=== PATIENT | female | born 1940 | race Caucasian/White ===

== ENCOUNTER 2017-09-04 11:13 | Inpatient (IN) ==
--- NOTE | 2017-09-04 11:52 | Emergency Department Note ---
Disposition Clinical Impression: Palpitations Disposition: Admitted As Inpatient Condition: Good Time of Disposition: 13:53 Arrhythmia/Palpitations HPI - General Chief Complaint: ED Arrhythmia/Palpitations Stated Complaint: High Heart Rate Time Seen by Provider: 09/04/17 11:27 Source: patient, family Limitations: no limitations - History of Present Illness HPI Narrative: 76-year-old female presents emergency Department with concerns of increased weakness, lightheadedness and a feeling of palpitation at home. Patient has a history of paroxysmal atrial fibrillation. She takes sotalol which was recently increased within the past 2 weeks. Patient states she feels lightheaded and near syncopal with exertion. She also become short of breath with exertion. Patient denies history of GA in the past. Patient has had a persistent cough which is nonproductive. Patient denies diarrhea, abdominal pain, rash. No recent fevers. - Related Data Home Medications Medication Instructions Recorded Confirmed Cholecalciferol (Vitamin D3) 5,000 unit PO DAILY 08/03/15 09/04/17 [Vitamin D3] Multivitamin/Iron/Folic Acid 1 tab PO DAILY 08/03/15 09/04/17 [Centrum Complete Multivit Tab] Atorvastatin [Lipitor] 40 mg PO QPM 08/18/15 09/04/17 Warfarin [Coumadin] 5 mg PO SUMOWETHFR 10/13/15 09/04/17 Warfarin [Coumadin] 7.5 mg PO TUSA 10/13/15 09/04/17 Mirtazapine 7.5 mg PO DAILY PRN 12/19/15 09/04/17 Amlodipine Besylate 10 mg PO DAILY 09/04/17 09/04/17 DULoxetine [Cymbalta] 30 mg PO BID 09/04/17 09/04/17 Gabapentin [Neurontin] 600 mg PO TID 09/04/17 09/04/17 Sotalol HCl [Betapace] 120 mg PO BID 09/04/17 09/04/17 Previous Rx's Medication Instructions Recorded Furosemide [Lasix] 40 mg PO DAILY #30 tablet 12/22/15 Potassium Chloride [K-Tab ER] 20 meq PO DAILY #30 tablet.er 12/22/15 Allergies Allergy/AdvReac Type Severity Reaction Status Date / Time Prazosin [From Minipress] Allergy Anaphylaxis Verified 09/04/17 11:20 cephalexin [From Keflex] AdvReac Vomiting Verified 09/04/17 11:20 All systems ED: reviewed and negative except as stated. Review of Systems: As Per HPI Past Medical History - Past Medical History Attestation: Yes The following information was validated with the patient. Medical history: Reports: arthritis, atrial fibrillation, cancer, cardiomyopathy , dementia, GERD, hyperlipidemia, hypertension, osteoporosis, syncope, TIA, other Surgical history: Reports: appendectomy, cancer surgery, cataract, cholecystectomy, other Psychiatric history: Reports: anxiety, depression TRANSPORTATION DISPATCHER history: Reports: no TRANSPORTATION DISPATCHER history - Social History Smoking Status: Never smoker Smokeless Tobacco Status: No Alcohol use: Reports: none Drug use: Reports: none Physical Exam General: Alert and in no acute distress Skin: Warm, dry, intact Head: Normocephalic and atraumatic Neck: Supple, trachea midline and no tenderness Cardiovascular: RRR, no murmur, normal perfusion Respiratory: CTAB, no wheezing, cough, or respiratory distress Musculoskeletal: Normal strength, no tenderness, swelling or deformity GI: Soft, nontender, nondistended. Bowel sounds present Neuro: A&O to person, place, time and situation. No focal deficits noted on exam Psychiatric: cooperative and appropriate mood and affect. - General Limitations: no limitations General appearance: alert, in no apparent distress Course Vital Signs Temperature 98.4 F 09/04/17 11:16 Pulse Rate 81 09/04/17 11:16 Respiratory Rate 20 09/04/17 11:16 Blood Pressure 132/65 09/04/17 11:16 O2 Sat by Pulse Oximetry 96 09/04/17 11:16 Temperature 98.8 F 09/04/17 22:30 Pulse Rate 105 09/04/17 22:30 Respiratory Rate 15 09/04/17 22:30 Blood Pressure 101/70 09/04/17 22:30 O2 Sat by Pulse Oximetry 95 09/04/17 22:30 Oxygen Delivery Oxygen Delivery Nasal Cannula Arrhythmia/Palpitations - Medical Records Medical records reviewed: Yes I reviewed the patient's medical records. - Lab Data Lab results reviewed: Yes I reviewed the patient's lab results. Result diagrams: 09/04/17 11:38 09/04/17 11:38 Lab Results 09/04/17 09/04/17 09/04/17 Range/Units 11:38 11:38 11:38 WBC 10.0 (4.3-11.1) K/mcL RBC 4.62 (3.82-4.97) M/mcL Hgb 14.6 (11.5-15.4) g/dL Hct 45.0 H (35.3-44.9) % MCV 97.4 (83.0-100.0) fL MCH 31.6 (28.0-33.3) pg MCHC 32.4 (31.6-35.5) g/dL RDW 12.8 (11.5-14.5) % Plt Count 303 (140-400) K/mcL MPV 10.7 (9.4-12.4) fL Immature Gran % 0.3 (0-4) % Seg Neutrophils % 66.6 % Lymphocytes % 24.2 % Monocytes % 6.9 % Eosinophils % 1.4 % Basophils % 0.6 % Neutrophils # 6.7 (1.6-8.9) K/mcL Lymphocytes # 2.4 (0.6-4.6) K/mcL Monocytes # 0.7 (0.0-1.3) K/mcL Eosinophils # 0.1 (0.0-0.6) K/mcL Basophils # 0.1 (0.0-0.2) K/mcL PT (9.4-12.1) Seconds INR APTT (26.0-36.0) Seconds D-Dimer (0-500) ng/mLFEU Sodium 139 (136-145) mEq/L Potassium 4.3 (3.5-5.1) mEq/L Chloride 102 (98-107) mEq/L Carbon Dioxide 27 (23-29) mEq/L BUN 14 (8-23) mg/dL Creatinine 0.96 (0.60-1.20) mg/dL Est GFR ( Amer) > 60 (> 60) Est GFR (Non-Af Amer) 56 L (> 60) BUN/Creatinine Ratio 15 (6-26) Glucose 117 H (70-105) mg/dL Calculated Osmolality 290 (280-300) Calcium 9.9 (8.6-10.3) mg/dL Troponin I < 0.03 (< 0.04) ng/mL TSH 4.089 (0.340-5.600) mcIU/mL 09/04/17 Range/Units 11:38 WBC (4.3-11.1) K/mcL RBC (3.82-4.97) M/mcL Hgb (11.5-15.4) g/dL Hct (35.3-44.9) % MCV (83.0-100.0) fL MCH (28.0-33.3) pg MCHC (31.6-35.5) g/dL RDW (11.5-14.5) % Plt Count (140-400) K/mcL MPV (9.4-12.4) fL Immature Gran % (0-4) % Seg Neutrophils % % Lymphocytes % % Monocytes % % Eosinophils % % Basophils % % Neutrophils # (1.6-8.9) K/mcL Lymphocytes # (0.6-4.6) K/mcL Monocytes # (0.0-1.3) K/mcL Eosinophils # (0.0-0.6) K/mcL Basophils # (0.0-0.2) K/mcL PT 23.8 H (9.4-12.1) Seconds INR 2.2 APTT 35.3 (26.0-36.0) Seconds D-Dimer 269 (0-500) ng/mLFEU Sodium (136-145) mEq/L Potassium (3.5-5.1) mEq/L Chloride (98-107) mEq/L Carbon Dioxide (23-29) mEq/L BUN (8-23) mg/dL Creatinine (0.60-1.20) mg/dL Est GFR ( Amer) (> 60) Est GFR (Non-Af Amer) (> 60) BUN/Creatinine Ratio (6-26) Glucose (70-105) mg/dL Calculated Osmolality (280-300) Calcium (8.6-10.3) mg/dL Troponin I (< 0.04) ng/mL TSH (0.340-5.600) mcIU/mL - Radiology Data Radiology results reviewed: Yes I reviewed the patient's radiology results. - EKG Data EKG attestation: Yes I reviewed and interpreted this EKG.
[2017-09-04 12:17] LABS: Basophils # 0.1 K/mcL (0.0-0.2); Basophils % 0.6 %; Eosinophils # 0.1 K/mcL (0.0-0.6); Eosinophils % 1.4 %; Hemoglobin 14.6 g/dL (11.5-15.4); Immature Granulocytes % 0.3 % (0-4); Lymphocytes # 2.4 K/mcL (0.6-4.6); Lymphocytes % 24.2 %; Mean Corpuscular HGB Conc 32.4 g/dL (31.6-35.5); Mean Corpuscular Hemoglobin 31.6 pg (28.0-33.3); Mean Corpuscular Volume 97.4 fL (83.0-100.0); Mean Platelet Volume 10.7 fL (9.4-12.4); Monocytes # 0.7 K/mcL (0.0-1.3); Monocytes % 6.9 %; Neutrophils # 6.7 K/mcL (1.6-8.9); Platelet Count 303 K/mcL (140-400); Red Blood Count 4.62 M/mcL (3.82-4.97); Red Cell Distribution Width 12.8 % (11.5-14.5); Segmented Neutrophils % 66.6 %
[2017-09-04 12:35] LABS: BUN/Creatinine Ratio 15 (6-26); Blood Urea Nitrogen 14 mg/dL (8-23); Calcium 9.9 mg/dL (8.6-10.3); Carbon Dioxide 27 mEq/L (23-29); Chloride 102 mEq/L (98-107); Glucose 117 mg/dL (70-105); Osmolality,Calculated 290 (280-300); Potassium 4.3 mEq/L (3.5-5.1); Sodium 139 mEq/L (136-145); eGFR For African Americans > 60 (> 60); eGFR For Non-African Americans 56 (> 60)
[2017-09-04 12:58] LABS: INR 2.2; Prothrombin Time 23.8 Seconds (9.4-12.1)
[2017-09-04 13:01] LABS: Activated Partial Thrombo Time 35.3 Seconds (26.0-36.0)
[2017-09-04] MEDS ORDERED: Naloxone 0.4 MG/ML INJ IVP PRN (15:55)
[2017-09-04] MEDS ORDERED: Mirtazapine 15 MG TABLET PO PRN (16:00)
[2017-09-04 16:13] LABS: Thyroid Stimulating Hormone 4.089 mcIU/mL (0.340-5.600)
--- NOTE | 2017-09-04 16:18 | Internal Med History&Physical ---
Date of Encounter: 09/04/17 Time of Encounter: 15:30 Assessment and Plan (1) Acute exacerbation of CHF (congestive heart failure) Current visit: Yes Status: Acute Acute exacerbation of CHF. BNP ordered stat. On exam, pt. SOB and mildly dyspneic w/bilateral pedal edema of LEs. Reports cardiology suspected CHF dx previously. States SOB worse w/exertion and reports orthopnea. Echocardiogram ordered. Hold pts. PO lasix and administer 40 mg IVP lasix BID. Monitor I&O and daily weight. 1.5L daily fluid restriction. Continuous cardiac telemetry. Continue Coumadin w/pharmacy dosing and Sotalol for chronic atrial fibrillation. Falls/safety precautions. Pt. discussed w/Dr. Fuchs who agrees w/ plan of care. Pt. is high risk for further morbidity and cardiac/respiratory distress d/t current sx, acute exacerbation of CHF, hx, and risk factors. Observation. Qualifiers: Heart failure type: diastolic Qualified Code(s): I50.33 - Acute on chronic diastolic (congestive) heart failure (2) Dizziness Current visit: Yes Status: Acute Acute dizziness d/t SOB/dyspnea. Supplemental O2/SpO2 monitoring. Falls/safety precautions, up with assist, bed rest w/bathroom privileges w/assist only. PT/ OT consults ordered to assess for ambulation strength, stability, safety. (3) SOB (shortness of breath) Current visit: Yes Status: Acute Acute on chronic SOB/dyspnea for past 2-3 days, worsening in last day. Denies home O2 use. Supplemental O2 w/titration and SpO2 monitoring. DuoNebs Q6 scheduled. IVP lasix 40 mg BID. Falls/safety precautions. SW consult to assess for home O2 needs. (4) HTN (hypertension) Current visit: Yes Status: Chronic Hx of chronic HTN. Monitor pt. and VS. Continue pts. Amlodipine. Qualifiers: Hypertension type: essential hypertension Qualified Code(s): I10 - Essential (primary) hypertension (5) HLD (hyperlipidemia) Current visit: Yes Status: Chronic Hx of chronic HLD. Lipid panel in a.m. labs. Continue pts. Lipitor. Qualifiers: Hyperlipidemia type: pure hypercholesterolemia Qualified Code(s): E78.00 - Pure hypercholesterolemia, unspecified; E78.0 - Pure hypercholesterolemia (6) GERD (gastroesophageal reflux disease) Current visit: Yes Status: Chronic Hx of chronic GERD. 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 Mucinex for cough. IVP Protonix 40 mg daily. Qualifiers: Esophagitis presence: esophagitis presence not specified Qualified Code(s) : K21.9 - Gastro-esophageal reflux disease without esophagitis (7) Atrial fibrillation Current visit: Yes Status: Chronic Hx of chronic atrial fibrillation. Pacemaker in place. Continuous cardiac telemetry. Continue patient's Coumadin with pharmacy dosing and sotalol. Qualifiers: Atrial fibrillation type: chronic Qualified Code(s): I48.2 - Chronic atrial fibrillation (8) Anxiety associated with depression Current visit: Yes Status: Chronic Hx of chronic anxiety and depression. Continue pts. Cymbalta and mirtazapine. (9) DVT prophylaxis Current visit: Yes Status: Acute Continue pts. Coumadin w/pharmacy dosing for DVT prophylaxis. Monitor pt. for signs of bleeding. Internal Medicine - H&P: HPI Chief complaint: SOB/Dyspnea Admitted From: Emergency Dept Plans for Post Hospital Care: Home History of present illness: Ms. Tavares is a 76 year old female w/PMH of arthritis, atrial fibrillation, basal cell skin carcinoma, cardiomyopathy, dementia, GERD, atrial decal HTN, osteoporosis, and TIAs presents from the ED with chief complaint of shortness of breath and dyspnea past 2-3 days which worsened over the past 24 hours. Patient states SOB increases with exertion. Patient also reports palpitations and has history of atrial fibrillation. Denies history of tobacco use. Patient reports SOB, dyspnea, cough, and dizziness but denies recent illness, fever, chills, nausea, vomiting, headache, changes in vision, abdominal pain, diarrhea, constipation, chest pain, unusual bleeding, pre-syncope, or syncope. Past Med Surg Social Fam HX - Past Medical History Source: patient, old records reviewed, obtained from family Medical history: arthritis, atrial fibrillation, cancer (Basal cell carcinoma of the skin), cardiomyopathy, dementia, GERD, hyperlipidemia, hypertension, osteoporosis, syncope, TIA, other Psychiatric history: anxiety, depression - Past Surgical History Surgical History: appendectomy, cancer surgery (Skin), cataract (Right), cholecystectomy, orthopedic, other (Right wrist), other - Social History Smoking Status: Never smoker Smokeless Tobacco Status: No Alcohol use: none Drug use: none Current living situation: Home, With Family Activity Level: Independent ambulation Recent Out of Country Travel Within the Last 8 Weeks: No Exposure or Possible Exposure to Illness During Travel: No - Family History Mother Race: Family Member Ethnicity: Non- Living Status: Age at : 68 Cause of : [place] Hx Family Cardiac Disorders: Yes (Heart Disease) Father Race: Family Member Ethnicity: Non- Living Status: Age at : 79 Cause of : Cancer Hx Family Cancer: Yes Brother Race: Family Member Ethnicity: Non- Living Status: Still Living Hx Family Neuromuscular Disorders: Yes (Parkinson's Disease) Sister Race: Family Member Ethnicity: Non- Living Status: Age at : 65 Cause of : Breast cancer Hx Family Cancer: Yes (Breast) Internal Medicine - H&P: Meds Cholecalciferol (Vitamin D3) [Vitamin D3] 5,000 unit PO DAILY 08/03/15 [History] Multivitamin/Iron/Folic Acid [Centrum Complete Multivit Tab] 1 tab PO DAILY [History] Atorvastatin [Lipitor] 40 mg PO QPM 08/18/15 [History] Warfarin [Coumadin] 5 mg PO SUMOWETHFR 10/13/15 [History] Warfarin [Coumadin] 7.5 mg PO TUSA 10/13/15 [History] Mirtazapine 7.5 mg PO DAILY PRN 12/19/15 [History] Furosemide [Lasix] 40 mg PO DAILY #30 tablet 12/22/15 [Rx] Potassium Chloride [K-Tab ER] 20 meq PO DAILY #30 tablet.er 12/22/15 [Rx] Amlodipine Besylate 10 mg PO DAILY 09/04/17 [History] DULoxetine [Cymbalta] 30 mg PO BID 09/04/17 [History] Gabapentin [Neurontin] 600 mg PO TID 09/04/17 [History] Sotalol HCl [Betapace] 120 mg PO BID 09/04/17 [History] 3 Allergy/AdvReac Type Severity Reaction Status Date / Time Prazosin [From Minipress] Allergy Anaphylaxis Verified 09/04/17 11:20 cephalexin [From Keflex] AdvReac Vomiting Verified 09/04/17 11:20 All Systems PM: A 10-system review of systems was performed and is negative for pertinent findings except as documented above in the HPI. - Constitutional Constitutional: as per HPI, no chills, no fever(s), no night sweats - EENT Eyes: no change in vision, no discharge, no pain, no photophobia Ears: no ear discharge, no ear pain, no tinnitus Nose, mouth and throat: no dysphagia, no nasal discharge, no neck pain, no sore throat - Breasts Breasts: as per HPI - Cardiovascular Cardiovascular ROS IM: as per HPI, dyspnea, dyspnea on exertion, edema ( Bilateral pedal edema in LEs), irregular heart rhythm (Atrial fibrillation), orthopnea, no chest pain, no diaphoresis, no lightheadedness, no palpitations, no syncope - Respiratory Respiratory: as per HPI, cough, dyspnea, dyspnea on exertion, no wheezing, no excessive phlegm production - Gastrointestinal Gastrointestinal: no abdominal pain, no diarrhea, no hematemesis, no hematochezia, no melena, no nausea, no vomiting - Genitourinary Genitourinary: no change in urinary stream, no dysuria, no flank pain, no hematuria Menstruation: as per HPI - Musculoskeletal Musculoskeletal ROS IM: no numbness, no tingling - Integumentary Integumentary IM: no rash, no unusual bruising - Neurological Neurological ROS: as per HPI, dizziness, no confusion, no convulsions, no focal weakness, no numbness, no tingling, no tremor(s) - Psychiatric Psychiatric: as per HPI, anxiety, depression - Endocrine Endocrine IM: as per HPI - Hematologic/Lymphatic Hematologic/Lymphatic: no easy bruising - Allergic/Immunologic Allergic/Immunologic: as per HPI - Constitutional Vitals: Temp Pulse Resp BP Pulse Ox 98.4 F 75 16 116/64 99 09/04/17 11:16 09/04/17 15:02 09/04/17 15:02 09/04/17 15:02 09/04/17 15:02 General appearance: Present: cooperative, mild distress (SOB), A&O X 3, pleasant , answers questions appropriately - Head Head exam: Present: atraumatic, normal inspection, normocephalic - Eye Eye exam: Present: PERRL, conjuntiva pink, sclera anicteric Pupils: Present: PERRL - ENT ENT exam: Present: normal exam - Neck Neck exam general surgery: Present: normal inspection, supple, trachea midline. Absent: lymphadenopathy - Respiratory Respiratory exam: Present: CTAB. Absent: accessory muscle use, rales, rhonchi, wheezes - Cardiovascular Cardiovascular exam: Present: RRR, +S1, +S2. Absent: diastolic murmur, gallop, rubs, systolic murmur - GI/Abdominal GI/Abdominal exam: Present: normal bowel sounds, soft, no peritoneal signs. Absent: distended, tenderness - Rectal Rectal exam: Present: deferred - Additional comments: exam deferred. - Extremities Exam Extremities exam: Present: pedal edema (Bilaterally), warm, radial pulses palpable and symmetrical. Absent: calf tenderness, cyanotic - Back Exam Back exam: Present: normal inspection - Neurological Exam Neurological exam: Present: CN II-XII intact, oriented X3, no focal deficits. Absent: pronater drift, facial droop, speech deficit - Psychiatric Psychiatric exam: Present: normal affect, normal mood - Skin Skin exam: Present: dry, intact Internal Med - H&P Results - Labs CBC & Chem 7: 09/04/17 11:38 09/04/17 11:38 - EKG Data Prior EKG available for review: yes When compared to previous EKG: there is no significant change EKG comments: 09/04/17 16:25 EKG dated 11/15/16 shows electronic atrial pacemaker with nonspecific T-wave abnormality. EKG dated 09/04/17 shows electronic atrial pacemaker and abnormal rhythm ECG. - Diagnostic Studies Chest x-ray Additional comments: Impressions Chest X-Ray 09/04/17 11:54 IMPRESSION: No acute abnormality. D/ / Hilario Mcqueen MD / Hilario Mcqueen MD Interpreting Provider: Hilario Mcqueen MD
[2017-09-04 17:16] LABS: ABG Base Excess 5 mEq/L (-2 to 3); ABG HCO3 30 mEq/L (21-27); ABG Oxygen Saturation 98 % (95-98); ABG PCO2 43 mmHg (35-45); ABG PH 7.45 pH Units (7.32-7.45); ABG PO2 97 mmHg (85-104); ABG TCO2 31 mEq/L (20-26)
--- NOTE | 2017-09-04 17:17 | Event Note ---
Date of Encounter: 09/04/17 Time of Encounter: 16:57 Pt. admitted for CHF exacerbation w/SOB and dyspnea today. Went to see patient in room to verify code status and discuss family hx. Pt. was eating during questioning and at rest. When finished, I left pt. and . Rapid response called several minutes later. Returned to pts. room and pt. was laying in bed. According to her nurse, pt. slumped over while she was doing her assessment and could not speak. Pt. reported to me during my examination that she was dx with a twisted esophagus several years ago and she experiences coughing spells where it is difficult for her to breath. Nurse reports pt. did not experience coughing spell during incident. EKG done which shows sinus rhythm with a nonspecific T-wave abnormality. Pt. has hx of atrial fibrillation. Pt. was able to speak during RR and neuro checks unremarkable w/equal strengths bilaterally. ABG and CT of the head ordered STAT. Pt. alert, oriented x3, and back to her baseline by 17:05. Pt. to be placed on O2 via mask instead of current cannula. Pt. is falls/safety precautions and will continue to be monitored closely.
[2017-09-04] MEDS ORDERED: *HR* LORazepam 2 MG/ML VIAL IVP ONE (17:22)
[2017-09-04] MEDS: Furosemide 40 MG/4 ML VIAL IVP SCH (17:39)
[2017-09-04] MEDS: Pantoprazole 40 MG VIAL IVP SCH (17:39)
[2017-09-04] MEDS ORDERED: *HR* Warfarin 5 MG TABLET PO ONE (18:00)
[2017-09-04] MEDS ORDERED: Warfarin perPT PO PRN (18:00)
--- NOTE | 2017-09-04 18:45 | Electrocardiograph Report ---
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
--- NOTE | 2017-09-04 18:47 | Electrocardiograph Report ---
[place] 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
[2017-09-04] MEDS: Gabapentin 300 MG CAPSULE PO SCH (21:04)
[2017-09-04] MEDS: Ipratropium/Albuterol Neb 3 ML IH SCH (22:30)
[2017-09-05] MEDS: Ipratropium/Albuterol Neb 3 ML IH SCH ×4 (04:50→21:16)
[2017-09-05 06:20] LABS: Basophils # 0.1 K/mcL (0.0-0.2); Basophils % 0.6 %; Eosinophils # 0.1 K/mcL (0.0-0.6); Eosinophils % 1.3 %; Hematocrit 43.5 % (35.3-44.9); Hemoglobin 14.1 g/dL (11.5-15.4); Immature Granulocytes % 0.4 % (0-4); Lymphocytes # 2.2 K/mcL (0.6-4.6); Mean Corpuscular HGB Conc 32.4 g/dL (31.6-35.5); Mean Corpuscular Hemoglobin 31.9 pg (28.0-33.3); Mean Corpuscular Volume 98.4 fL (83.0-100.0); Mean Platelet Volume 10.8 fL (9.4-12.4); Monocytes # 0.7 K/mcL (0.0-1.3); Monocytes % 8.2 %; Neutrophils # 5.3 K/mcL (1.6-8.9); Platelet Count 237 K/mcL (140-400); Red Blood Count 4.42 M/mcL (3.82-4.97); Red Cell Distribution Width 12.9 % (11.5-14.5); Segmented Neutrophils % 63.5 %
[2017-09-05 06:39] LABS: Alanine Aminotransferase 9 Units/L (7-52); Albumin 3.8 g/dL (3.5-5.7); Albumin/Globulin Ratio 1.5 (1.1-2.2); Alkaline Phosphatase 74 Units/L (34-104); Aspartate Amino Transferase 22 Units/L (13-39); BUN/Creatinine Ratio 16 (6-26); Bilirubin,Total 0.7 mg/dL (0.3-1.0); Blood Urea Nitrogen 14 mg/dL (8-23); Calcium 9.5 mg/dL (8.6-10.3); Carbon Dioxide 26 mEq/L (23-29); Chloride 104 mEq/L (98-107); Chol/HDL Ratio 3.4 (0-4.9); Cholesterol 155 mg/dL (< 200); Globulin 2.5 g/dL (2.4-3.5); Glucose 103 mg/dL (70-105); HDL Cholesterol 46 mg/dL (40-59); LDL Cholesterol,Calculated 78 mg/dL (0-99); Osmolality,Calculated 291 (280-300); Potassium 3.8 mEq/L (3.5-5.1); Sodium 140 mEq/L (136-145); Total Protein 6.3 g/dL (6.4-8.9); Triglycerides 155 mg/dL (< 150); eGFR For African Americans > 60 (> 60); eGFR For Non-African Americans > 60 (> 60)
[2017-09-05] MEDS: Cholecalciferol (D-3) 1,000 UNIT TABLET PO SCH (08:35)
[2017-09-05] MEDS: Pantoprazole 40 MG VIAL IVP SCH (08:35)
[2017-09-05] MEDS: Gabapentin 300 MG CAPSULE PO SCH ×3 (08:35→20:58)
[2017-09-05] MEDS: Furosemide 40 MG/4 ML VIAL IVP SCH (08:35)
[2017-09-05] MEDS: Multivit/Ca/Min/Fe/FA 1 TAB TABLET PO SCH (08:35)
[2017-09-05 08:45] LABS: INR 2.1; Prothrombin Time 22.6 Seconds (9.4-12.1)
[2017-09-05] MEDS ORDERED: amLODIPine 5 MG TABLET PO SCH (09:00)
[2017-09-05] MEDS ORDERED: Ondansetron 4 MG/2 ML VIAL ONE (10:23)
--- NOTE | 2017-09-05 11:16 | Cardiology Consult Note ---
Date of Encounter: 09/05/17 Time of Encounter: 11:14 Assessment and Plan (1) Paroxysmal atrial fibrillation Current Visit: No Status: Chronic H/o afib/aflutter. Sotalol increased one month ago due to increasing palpitations. Preciously decreased due to concern that sotalol was causing weakness and fatigue. After decreasing symptoms worsened. DId not appear symptoms were caused by sotalol. Patient still have palpitations at times. Noted to be tachycardiac HR 110's during episodes of presyncope. Will do a device check to assess afib burden. Discussed with Dr. Corral, sotalol does not appear to be controlling afib and family has concern that sotalol is still causing symptoms. We will wean off sotalol and rate control with metoprolol. Consider amiodarone if b/p does not allow beta-odell. On coumadin for AC. INR 2.1. Recommend pharmacy to dose. EKG today showed NSR. QT/QTc 367/408. (2) Pre-syncope Current Visit: No Status: Acute Presyncopal event x2 during hospital stay. Both times noted to have tachycardia. Also noted to be hypotensive. Last TTE 10/2016-LVEF 60%. Normal LV chamber size, wall thickness and function. Indeterminate diastolic function. Normal right ventricular structure and function. Moderate to severely dilated left atrium. Moderate mitral regurgitation. Moderate pulmonary hypertension. Estimated RVSP is 47 mmHg. A device lead was visualized in the right atrium and right ventricle. CT head shows no acute finding. Meningioma is unchanged from previous- family asking if this could cause symptoms. Will defer to primary team. WIll order device check. Discussion w patient/family: The assessment and plan as outlined above was discussed with the patient and/or family members who expressed understanding and agreement. All questions were answered. Thank you for involving us in the care of your patient. Please call with any questions. History of Present Illness Consult date: 09/05/17 Requesting physician: Estrella Corona Consult reason: syncope, tachycardia Chief complaint: decreased LOC History of present illness: Ms. Tavares is a 76 year old female with past medical history that includes HLD, atrial fibrillation/flutter on coumadin and pacemaker implanted who presented with increasing weakness. Cardiology consulted for tachycardia. During hospital stay patient slumped over in her chair briefly. The nurse said she was able to spit her food out so she wasn't totally out. She also slumped over today and became diaphoretic after going to the bathroom today. She denies chest pain or SOB. She follows with [facility]. Last seen 08/15/17. At that time sotalol was increased for palpitations. Sotalol was decreased initially due to c/o fatigue and weakness. Weakness and fatigue increased despite decreasing sotalol. Daughter notes patient was diagnosed with brain mass two years ago and was inquiring if symptoms were caused by this. CT head completed this admission shows no change in menigioma. Past Med Surg Social Fam HX - Past Medical History Medical history: arthritis, atrial fibrillation, cancer, cardiomyopathy, dementia, GERD, hyperlipidemia, hypertension, osteoporosis, syncope, TIA, other Psychiatric history: anxiety, depression - Past Surgical History Surgical History: appendectomy, cancer surgery, cataract, cholecystectomy, other - Social History Smoking Status: Never smoker Smokeless Tobacco Status: No Alcohol use: none Drug use: none - Family History Father Race: Family Member Ethnicity: Non- Living Status: Age at : 79 Cause of : Cancer Hx Family Cancer: Yes Brother Race: Family Member Ethnicity: Non- Living Status: Still Living Hx Family Neuromuscular Disorders: Yes (Parkinson's Disease) Sister Race: Family Member Ethnicity: Non- Living Status: Age at : 65 Cause of : Breast cancer Hx Family Cancer: Yes (Breast) Mother Race: Family Member Ethnicity: Non- Living Status: Age at : 68 Cause of : CO Hx Family Cardiac Disorders: Yes (Heart Disease) Hx Family Respiratory Disorders: No Hx Family Cancer: No Hx Family GI Disorders: No Hx Family Endocrine Disorder: No Hx Family Neuromuscular Disorders: No Hx Family Neurologic Disorders: No Hx Family HEENT Disorders: No Hx Family Autoimmune Disorders: No Medications and Allergies Cholecalciferol (Vitamin D3) [Vitamin D3] 5,000 unit PO DAILY 08/03/15 [History] Multivitamin/Iron/Folic Acid [Centrum Complete Multivit Tab] 1 tab PO DAILY [History] Atorvastatin [Lipitor] 40 mg PO QPM 08/18/15 [History] Warfarin [Coumadin] 5 mg PO SUMOWETHFR 10/13/15 [History] Warfarin [Coumadin] 7.5 mg PO TUSA 10/13/15 [History] Mirtazapine 7.5 mg PO DAILY PRN 12/19/15 [History] Furosemide [Lasix] 40 mg PO DAILY #30 tablet 12/22/15 [Rx] Potassium Chloride [K-Tab ER] 20 meq PO DAILY #30 tablet.er 12/22/15 [Rx] Amlodipine Besylate 10 mg PO DAILY 09/04/17 [History] DULoxetine [Cymbalta] 30 mg PO BID 09/04/17 [History] Gabapentin [Neurontin] 600 mg PO TID 09/04/17 [History] Sotalol HCl [Betapace] 120 mg PO BID 09/04/17 [History] 3 Allergy/AdvReac Type Severity Reaction Status Date / Time Prazosin [From Minipress] Allergy Anaphylaxis Verified 09/04/17 11:20 cephalexin [From Keflex] AdvReac Vomiting Verified 09/04/17 11:20 All Systems Review: The remainder of the systems were reviewed and are negative Physical Examination Vital Signs, Last 4 Hours Pulse Resp BP Pulse Ox 09/05/17 10:20 118 14 94/67 92 Vital Signs Temp Pulse Resp BP Pulse Ox 09/05/17 10:20 118 14 94/67 92 09/05/17 06:33 98.0 F 106 16 126/76 93 09/05/17 04:50 16 97 09/05/17 04:04 98.3 F 104 16 104/68 94 09/04/17 22:30 98.8 F 105 16 101/70 94 09/04/17 21:09 96 09/04/17 19:03 97.7 F 72 15 118/77 96 09/04/17 16:55 79 14 165/87 98 09/04/17 16:45 98.2 F 77 16 137/89 95 09/04/17 15:02 75 16 116/64 99 09/04/17 13:00 68 18 120/79 95 09/04/17 12:55 91 09/04/17 12:45 102 16 117/82 96 09/04/17 12:30 80 16 102/67 96 Intake and Output 09/04/17 09/05/17 09/05/17 23:59 07:59 15:59 Intake Total 300 / 300 120 / 120 Output Total 0 / 0 Balance 300 / 300 120 / 120 Intake: Oral 300 / 300 120 / 120 Output: Urine 0 / 0 Other: Meal Breakfast Percent of Meal Consumed 100% Weight 78.789 kg Blood Glucose* 115 139 Patient Weight 09/05/17 23:59 Weight 78.789 kg General: Conversant, Other (ill appearing. Pale. Drowsy. ) HEENT: Atraumatic, Normocephaly, Mucus Membranes Moist Neck: No JVD, Normal carotid pulses Cardiac: Reg Rate and Rhythm, Normal S1 and S2, No Murmur, Other (v-paced on monitor) Lungs: Normal Breath Sounds, No Wheeze, Rales, Rhonchi Neuro: Alert and responsive, No focal deficits noted Abdomen: Soft, Non-Tender Skin: No rashes noted on visualized skin Musculoskeletal: No Chest Wall Tenderness Extremities: No Clubbing, No Cyanosis, No Edema, Normal Pulses Results 09/05/17 05:22 09/05/17 05:22 Lab Results 09/04/17 09/05/17 09/05/17 17:13 05:22 05:22 WBC 8.3 Hgb 14.1 Hct 43.5 Plt Count 237 INR Sodium 140 Potassium 3.8 Chloride 104 Carbon Dioxide 26 BUN 14 Creatinine 0.88 Glucose 103 Calcium 9.5 Magnesium 2.0 Total Bilirubin 0.7 AST 22 ALT 9 Alkaline Phosphatase 74 B-Natriuretic Peptide 97 09/05/17 08:10 WBC Hgb Hct Plt Count INR 2.1 Sodium Potassium Chloride Carbon Dioxide BUN Creatinine Glucose Calcium Magnesium Total Bilirubin AST ALT Alkaline Phosphatase B-Natriuretic Peptide Chest X-Ray 09/04/17 11:54 IMPRESSION: No acute abnormality. D/ / Hilario Mcqueen MD / Hilario Mcqueen MD Interpreting Provider: Hilario Mcqueen MD Head CT 09/04/17 17:01 IMPRESSION: No acute intracranial abnormality. Unchanged right parafalcine meningioma. D/ / Broderick Morocho / Broderick Morocho Interpreting Provider: Broderick Morocho - Imaging and Cardiology Echo: report reviewed - EKG Interpretation EKG results cardiology: personally reviewed ([facility]Hows NSR.) Consult Discharge Plan - Plan Referrals: Jonathan Osman MD [Primary Care Provider] -
[2017-09-05 12:10] LABS: Hemoglobin A1C 6.1 %
--- NOTE | 2017-09-05 15:21 | Internal Med Progress Note ---
Date of Encounter: 09/05/17 Time of Encounter: 09:10 - Assessment and plan (1) Tachycardia Current Visit: Yes Status: Acute Assessment and plan: Patient with recent history of tachycardia, remote history of A. fib/A flutter.. She is placed on sotalol 80 mg twice daily. Was increased to 120 mg twice daily approximately 2 weeks ago. Daughter states the patient has actually become worse since the increase. Patient's pulse has been 110-120 since arrival. After patient's second rapid response since admission, cardiology was consulted for evaluation. Device check reveals no events in the last week. Device is working appropriately. Cardiology is going to wean patient from sotalol and rate control with metoprolol. If the blood pressure does not tolerate a beta odell, they will consider amiodarone. Continue telemetry Sotalol has been stopped, metoprolol 25 mg by mouth twice a day has been started. (2) Dizziness Current Visit: Yes Status: Acute Assessment and plan: Most likely presyncope due to tachycardia, hypotension. Cardiology is following. I appreciate their recommendation the consultation. Sotalol has been stopped, metoprolol has been started. Continue district manager major accounts sales for safety, fall precautions. Zofran for nausea. (3) Anxiety associated with depression Current Visit: Yes Status: Chronic Assessment and plan: Continue home medications. (4) Atrial fibrillation Current Visit: Yes Status: Chronic Assessment and plan: Prior history. Patient currently has pacemaker. The patient has been switched from sotalol to metoprolol. Patient is anticoagulated on Coumadin. Pharmacy to dose Qualifiers: Atrial fibrillation type: chronic Qualified Code(s): I48.2 - Chronic atrial fibrillation (5) GERD (gastroesophageal reflux disease) Current Visit: Yes Status: Chronic Assessment and plan: Chronic. Continue medications. Qualifiers: Esophagitis presence: esophagitis presence not specified Qualified Code(s) : K21.9 - Gastro-esophageal reflux disease without esophagitis (6) HLD (hyperlipidemia) Current Visit: Yes Status: Chronic Assessment and plan: Chronic. Continue home medications. Qualifiers: Hyperlipidemia type: pure hypercholesterolemia Qualified Code(s): E78.00 - Pure hypercholesterolemia, unspecified; E78.0 - Pure hypercholesterolemia (7) HTN (hypertension) Current Visit: Yes Status: Chronic Assessment and plan: Chronic. Continue patient's home medications. Earlier today patient had syncopal episode and was hypotensive, at this time blood pressure medications were held and she was given a bolus of 0.9 normal saline. Blood pressure has returned to normal. Qualifiers: Hypertension type: essential hypertension Qualified Code(s): I10 - Essential (primary) hypertension (8) Pacemaker Current Visit: Yes Status: Chronic (9) Syncope and collapse Current Visit: Yes Status: Acute Assessment and plan: Patient has had 2 syncopal episodes since admission. Today's episode patient was found in the bathroom on the toilet trying to vomit. She was carried from the back by NAIL MAKING MACHINE SETTER and was pale, diaphoretic, unresponsive, thready weak pulse. Patient was hypotensive and was given a fluid bolus, blood pressure returned to normal. Blood sugar was within normal limits. Patient did respond and arouse with sternal rub. Blood pressure medicine will be held. Cardiology has been consulted and they have switched patient from sotalol 120 mg by mouth twice a day 2 metoprolol 25 mg by mouth twice a day. Continue telemetry Graduate Research Assistant consult, appreciate their recommendation consultation. Monitor vital signs per admission orders. (10) DVT prophylaxis Current Visit: Yes Status: Acute Assessment and plan: Patient is anticoagulated and on warfarin. Pharmacy is dosing. (11) Acute exacerbation of CHF (congestive heart failure) Current Visit: Yes Status: Ruled-out Assessment and plan: Patient is euvolemic with clear lung sounds, no peripheral edema. ENT is negative. Chest x-ray shows that the lungs are clear, pulmonary vascularity is normal, cardiomediastinal silhouette is normal. Echocardiogram shows preserved ejection fraction, indeterminant diastolic dysfunction, no evidence of pulmonary hypertension and no significant valvular dysfunction. Previous mitral regurgitation is not visualized on this study. Patient is not in acute exacerbation of CHF. Qualifiers: Heart failure type: diastolic Qualified Code(s): I50.33 - Acute on chronic diastolic (congestive) heart failure - Time Spent With Patient less than 15 minutes - Subjective Interval history: Patient was seen and assessed at bedside and 9:10 AM. She was alert, oriented, pleasant. She answered questions appropriately. Patient reports that she had a pacemaker and planted to bradycardia with a pulse in the 20s. She states that she has been having tachycardia for 2-3 months and was placed on sotalol. She reports that her symptoms keep coming worse with the sotalol. This increased 2 weeks ago, which increased her fatigue and weakness. Yesterday, daughter called cardiology office to tell them that her pulse was still elevated , she was sent to the emergency room by Dr. Cruz at that time. Again today, patient was a rapid response. She was found in the bathroom pale, diaphoretic, unresponsive with thready pulses. Back to her bed when EKG was completed that showed a paced rhythm. Her blood sugar was within normal limits , she was hypotensive, and remained tachycardic. She was given a fluid bolus, blood pressure returned to normal. Cardiology was consulted for evaluation. and daughter at bedside, all questions were answered,patient is stable later with a normal blood pressure, alert and oriented, able to answer questions approximately 1 hour after event. - Constitutional Vitals: Temp Pulse Resp BP Pulse Ox 98.0 F 114 16 101/69 95 09/05/17 06:33 09/05/17 13:09 09/05/17 13:09 09/05/17 13:09 09/05/17 13:09 General appearance: Present: cooperative, mild distress (SOB), A&O X 3, pleasant , no acute distress, answers questions appropriately - Head Head exam: Present: atraumatic, normal inspection, normocephalic - Eye Eye exam: Present: normal appearance, conjuntiva pink, sclera anicteric - Neck Neck exam general surgery: Present: supple, trachea midline. Absent: lymphadenopathy, tenderness - Respiratory Respiratory exam: Present: CTAB. Absent: accessory muscle use, rales, rhonchi, wheezes, tachypnea - Cardiovascular Cardiovascular exam: Present: RRR, +S1, +S2, tachycardia. Absent: diastolic murmur, gallop, irregular rhythm, rubs, systolic murmur - GI/Abdominal GI/Abdominal exam: Present: normal bowel sounds, soft. Absent: distended, hepatomegaly, tenderness - Extremities Exam Extremities exam: Present: normal capillary refill, warm, radial pulses palpable and symmetrical. Absent: calf tenderness, cyanotic, pedal edema, tenderness - Neurological Exam Neurological exam: Present: alert, oriented X3, no focal deficits. Absent: facial droop, speech deficit - Skin Skin exam: Present: dry, intact, normal color, warm. Absent: rash Internal Medicine: Result - Labs CBC & Chem 7: 09/05/17 05:22 09/05/17 05:22 Labs: Short CBC 09/05/17 Range/Units 05:22 WBC 8.3 (4.3-11.1) K/mcL Hgb 14.1 (11.5-15.4) g/dL Hct 43.5 (35.3-44.9) % Plt Count 237 (140-400) K/mcL Neutrophils # 5.3 (1.6-8.9) K/mcL BMP 09/05/17 05:22 Sodium 140 Potassium 3.8 Chloride 104 Carbon Dioxide 26 BUN 14 Creatinine 0.88 Glucose 103 Calcium 9.5 Liver Function 09/05/17 Range/Units 05:22 Total Bilirubin 0.7 (0.3-1.0) mg/dL AST 22 (13-39) Units/L ALT 9 (7-52) Units/L Alkaline Phosphatase 74 (34-104) Units/L Albumin 3.8 (3.5-5.7) g/dL - ABG Interpretation ABG results: ABG ABG pH 7.45 pH Units (7.32-7.45) 09/04/17 17:09 ABG pCO2 43 mmHg (35-45) 09/04/17 17:09 ABG pO2 97 mmHg (85-104) 09/04/17 17:09 ABG O2 Saturation 98 % (95-98) 09/04/17 17:09 PT/INR, D-dimer PT 22.6 Seconds (9.4-12.1) H 09/05/17 08:10 D-Dimer 269 ng/mLFEU (0-500) 09/04/17 11:38 - Impressions Impressions Echocardiogram 09/04/17 16:05 Impressions: LVEF 55%. Normal LV chamber size, wall thickness and function. Indeterminate diastolic function. Normal right ventricular structure and function. No evidence of pulmonary hypertension. No significant valvular dysfunction. Previous mitral regurgitation not visualized on this study. A device lead was visualized in the right atrium and right ventricle. Left Ventricular Wall Motion: Rest Echo Findings All wall segments showed normal motion. Findings: Study Quality * Technically sub-optimal due to clinical status. ECG Findings * Difficult to determine rhythm. Tachycardia noted. Left Ventricle * LVEF 55%. * Normal LV chamber size, wall thickness and function. * Indeterminate diastolic function. Right Ventricle * Normal right ventricular structure and function. Left Atrium * Moderately dilated left atrium. Right Atrium * Mildly dilated right atrium. Interatrial Septum * Interatrial septum not well evaluated. Aortic Valve * Aortic valve not well visualized. * No aortic regurgitation. * No aortic stenosis. Mitral Valve * Normal mitral valve structure and function. * No mitral regurgitation. * No mitral stenosis. Tricuspid Valve * Normal tricuspid valve structure and function. * Trace tricuspid regurgitation. * No evidence of pulmonary hypertension. Pulmonic Valve * Pulmonic valve not well visualized. Aorta * Normally sized aortic root. Pericardium * The pericardium appears normal. IVC * Normal IVC dimensions and inspiratory collapse. Device lead * A device lead was visualized in the right atrium and right ventricle. Pulmonary Artery * Normal visualized portions of the main pulmonary artery. Head CT 09/04/17 17:01 IMPRESSION: No acute intracranial abnormality. Unchanged right parafalcine meningioma. D/ / Broderick Morocho / Broderick Morocho Interpreting Provider: Broderick Morocho Consult Discharge Plan - Plan Referrals: Jonathan Osman MD [Primary Care Provider] -
[2017-09-05] MEDS: Acetaminophen 325 MG TABLET PO PRN (16:33)
[2017-09-05] MEDS ORDERED: *HR* Warfarin 5 MG TABLET PO ONE (18:00)
--- NOTE | 2017-09-05 20:10 | Electrocardiograph Report ---
[place] [id number] Test Date: 2017-09-04 Pat Name: Tia Tavares Department: 113 Room: 3B23 Gender: F Program Trainer: : 1940 Requested By: Estrella Corona Order Number: [id number] Reading MD: Irineo Villalta DO Measurements Intervals [place] Rate: 78 P: 64 [place]: 189 QRS: -13 QRSD: 94 T: 0 QT: 389 QTc: 422 Interpretive Statements SINUS RHYTHM NONSPECIFIC T-WAVE ABNORMALITY Electronically Signed On 09-05-2017 20:08:42 EST by Irineo Villalta DO
[2017-09-06] MEDS: Ipratropium/Albuterol Neb 3 ML IH SCH ×4 (03:07→22:35)
[2017-09-06 05:05] LABS: Basophils % 0.2 %; Eosinophils # 0.1 K/mcL (0.0-0.6); Eosinophils % 0.5 %; Hematocrit 40.2 % (35.3-44.9); Hemoglobin 13.1 g/dL (11.5-15.4); Immature Granulocytes % 0.4 % (0-4); Lymphocytes # 1.2 K/mcL (0.6-4.6); Lymphocytes % 8.9 %; Mean Corpuscular HGB Conc 32.6 g/dL (31.6-35.5); Mean Corpuscular Hemoglobin 32.3 pg (28.0-33.3); Mean Platelet Volume 10.6 fL (9.4-12.4); Monocytes % 7.4 %; Neutrophils # 11.4 K/mcL (1.6-8.9); Platelet Count 193 K/mcL (140-400); Red Blood Count 4.06 M/mcL (3.82-4.97); Red Cell Distribution Width 12.7 % (11.5-14.5); Segmented Neutrophils % 82.6 %
[2017-09-06 05:23] LABS: Alanine Aminotransferase 8 Units/L (7-52); Albumin 3.6 g/dL (3.5-5.7); Albumin/Globulin Ratio 1.6 (1.1-2.2); Alkaline Phosphatase 80 Units/L (34-104); Aspartate Amino Transferase 16 Units/L (13-39); BUN/Creatinine Ratio 19 (6-26); Bilirubin,Total 0.6 mg/dL (0.3-1.0); Blood Urea Nitrogen 19 mg/dL (8-23); Calcium 9.4 mg/dL (8.6-10.3); Carbon Dioxide 29 mEq/L (23-29); Chloride 105 mEq/L (98-107); Globulin 2.2 g/dL (2.4-3.5); Glucose 144 mg/dL (70-105); Osmolality,Calculated 295 (280-300); Potassium 3.6 mEq/L (3.5-5.1); Sodium 140 mEq/L (136-145); Total Protein 5.8 g/dL (6.4-8.9); eGFR For African Americans > 60 (> 60); eGFR For Non-African Americans 54 (> 60)
[2017-09-06 05:40] LABS: INR 3.3; Prothrombin Time 36.3 Seconds (9.4-12.1)
[2017-09-06] MEDS: Gabapentin 300 MG CAPSULE PO SCH ×3 (08:28→20:42)
[2017-09-06] MEDS: Cholecalciferol (D-3) 1,000 UNIT TABLET PO SCH (08:28)
[2017-09-06] MEDS: Multivit/Ca/Min/Fe/FA 1 TAB TABLET PO SCH (08:28)
[2017-09-06] MEDS: Pantoprazole 40 MG VIAL IVP SCH (08:29)
--- NOTE | 2017-09-06 10:10 | Cardiology Progress Note ---
Date of Encounter: 09/06/17 Time of Encounter: 10:00 Assessment and Plan (1) Paroxysmal atrial fibrillation Current Visit: Yes Status: Chronic H/o afib/aflutter. Sotalol increased one month ago due to increasing palpitations. Preciously decreased due to concern that sotalol was causing weakness and fatigue. After decreasing symptoms worsened. Did not appear symptoms were caused by sotalol. Patient still have palpitations at times. Noted to be tachycardiac HR 110's during episodes of presyncope. Sotalol decresed to 80 mg BID on 09/05/17, continue to wean and rate control with metoprolol. Discussed with Dr. Corral, decrease sotalol to 40 mg BID today. Consider amiodarone if b/p does not allow beta-odell--consider EP consult on Friday. On coumadin for AC. INR 2.1. Recommend pharmacy to dose. EKG 09/05/17 NSR. QT/QTc 367/408. (2) Pre-syncope Current Visit: Yes Status: Acute Presyncopal event x2 during hospital stay. Etiology unclear. Both times noted to have tachycardia (HR 110's). Also noted to be hypotensive-- possible orthostatic. Last TTE 10/2016-LVEF 60%. Normal LV chamber size, wall thickness and function. Indeterminate diastolic function. Normal right ventricular structure and function. Moderate to severely dilated left atrium. Moderate mitral regurgitation. Moderate pulmonary hypertension. Estimated RVSP is 47 mmHg. A device lead was visualized in the right atrium and right ventricle. CT head shows no acute finding. Meningioma is unchanged from previous- family asking if this could cause symptoms. Will defer to primary team. Device check completed 09/05/2017: no events recorded at time of syncopal event. Continue to monitor. Discussion w patient/family: The assessment and plan as outlined above was discussed with the patient and/or family members who expressed understanding and agreement. All questions were answered. Thank you for involving us in the care of your patient. Please call with any questions. The patient will be discussed and reviewed with Dr. Corral; changes to be made accordingly. Subjective Principal diagnosis: Tachycardia, pre-syncope Interval history: Seen and examined. Patient reports she feels much better today; however still with significant fatigue and weakness. No recurrent syncope/pre-syncopal episodes reported. Objective Vital Signs, Last 4 Hours Temp Pulse Resp BP Pulse Ox 09/06/17 06:48 98.3 F 104 15 111/65 92 General: Conversant, No Apparent Distress HEENT: Atraumatic, Normocephaly, Mucus Membranes Moist Neck: No JVD, Normal carotid pulses Cardiac: Reg Rate and Rhythm, Normal S1 and S2, No Murmur Lungs: Normal Breath Sounds, No Wheeze, Rales, Rhonchi Neuro: Alert and responsive, No focal deficits noted Abdomen: Soft, Non-Tender Skin: No rashes noted on visualized skin Musculoskeletal: No Chest Wall Tenderness Extremities: No Clubbing, No Cyanosis, No Edema, Normal Pulses Results 09/06/17 04:16 09/06/17 04:16 Lab Results 09/06/17 09/06/17 09/06/17 04:16 04:16 04:16 WBC 13.8 H D Hgb 13.1 Hct 40.2 Plt Count 193 INR 3.3 D Sodium 140 Potassium 3.6 Chloride 105 Carbon Dioxide 29 BUN 19 Creatinine 0.99 Glucose 144 H Calcium 9.4 Total Bilirubin 0.6 AST 16 ALT 8 Alkaline Phosphatase 80 Active Medications Acetaminophen (Tylenol) 650 mg PO Q6HR PRN PRN Reason: Mild Pain/Fever Stop: 03/06/18 15:56 Last Admin: 09/05/17 16:33 Dose: 650 mg Albuterol/Ipratropium (Duoneb) 3 ml IH [id number] GERMÁN Stop: 03/06/18 22:01 Last Admin: 09/06/17 10:00 Dose: 3 ml Atorvastatin Calcium (Lipitor) 40 mg PO QPM GERMÁN Stop: 03/06/18 18:01 Last Admin: 09/05/17 16:33 Dose: 40 mg Duloxetine HCl (Cymbalta) 30 mg PO BID GERMÁN Stop: 03/06/18 21:01 Last Admin: 09/06/17 08:28 Dose: 30 mg Gabapentin (Neurontin) 600 mg PO TID GERMÁN Stop: 03/06/18 21:01 Last Admin: 09/06/17 08:28 Dose: 600 mg Guaifenesin (Mucinex) 600 mg PO BID GERMÁN Stop: 03/06/18 21:01 Last Admin: 09/06/17 08:28 Dose: 600 mg Metoprolol Tartrate (Lopressor) 25 mg PO BID GERMÁN Stop: 03/07/18 18:01 Last Admin: 09/06/17 08:28 Dose: 25 mg Mirtazapine (Remeron) 7.5 mg PO DAILY PRN PRN Reason: APPETITE STIMULANT Multivitamins/Calcium (Thera M Plus) 1 tab PO DAILY GERMÁN Stop: 03/07/18 09:01 Last Admin: 09/06/17 08:28 Dose: 1 tab Naloxone HCl (Narcan) 0.4 mg IVP Q2MIN PRN PRN Reason: SEE COMMENTS Stop: 03/06/18 15:56 Pantoprazole Sodium (Protonix) 40 mg IVP DAILY GERMÁN Stop: 03/06/18 16:16 Last Admin: 09/06/17 08:29 Dose: 40 mg Potassium Chloride (Potassium Chloride) 20 meq PO DAILY GERMÁN Stop: 03/07/18 09:01 Last Admin: 09/06/17 08:28 Dose: 20 meq Sotalol HCl (Betapace) 80 mg PO BID GERMÁN Stop: 03/07/18 18:01 Last Admin: 09/06/17 08:28 Dose: 80 mg Vitamin D (Vitamin D) 1,000 unit PO DAILY GERMÁN Stop: 03/07/18 09:01 Last Admin: 09/06/17 08:28 Dose: 1,000 unit Warfarin Sodium (Coumadin Perpt) 1 each PO DAILY@1800 PRN PRN Reason: SEE COMMENTS Stop: 03/06/18 18:01 - Imaging and Cardiology Stress Test: report reviewed Echo: report reviewed Other Results: 12 hour tele: avg RL=[id number]. - EKG Interpretation EKG results cardiology: personally reviewed Consult Discharge Plan - Plan Referrals: Jonathan Osman MD [Primary Care Provider] -
--- NOTE | 2017-09-06 14:01 | Internal Med Progress Note ---
Date of Encounter: 09/06/17 Time of Encounter: 09:40 - Assessment and plan (1) Tachycardia Current Visit: Yes Status: Acute Assessment and plan: Rate has slowed, near 100 now. Pt denies chest pain, n/v, diaphoresis, SOB and states that she feels better. Sotalol has been decreased to 80mg po BID, pt being weaned and will rate control with metoprolol. Continue telemetry Cardiology following (2) Dizziness Current Visit: Yes Status: Acute Assessment and plan: Most likely presyncope due to tachycardia, hypotension. Sotalol has been decreased, metoprolol for rate control Continue orange picking supervisor for safety, fall precautions. Zofran for nausea. 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 (4) Atrial fibrillation Current Visit: Yes Status: Chronic Assessment and plan: Prior history. Patient currently has pacemaker. Rate controlled with metoprolol, Sotalol has bee decreased, attempting to wean. Patient is anticoagulated on Coumadin. Pharmacy to dose Qualifiers: Atrial fibrillation type: chronic Qualified Code(s): I48.2 - Chronic atrial fibrillation (5) GERD (gastroesophageal reflux disease) Current Visit: Yes Status: Chronic Assessment and plan: Chronic. Continue medications. Qualifiers: Esophagitis presence: esophagitis presence not specified Qualified Code(s) : K21.9 - Gastro-esophageal reflux disease without esophagitis (6) HLD (hyperlipidemia) Current Visit: Yes Status: Chronic Assessment and plan: Chronic. Continue home medications. Qualifiers: Hyperlipidemia type: pure hypercholesterolemia Qualified Code(s): E78.00 - Pure hypercholesterolemia, unspecified; E78.0 - Pure hypercholesterolemia (7) HTN (hypertension) Current Visit: Yes Status: Chronic Assessment and plan: Well-controlled. Continue home medications. Qualifiers: Hypertension type: essential hypertension Qualified Code(s): I10 - Essential (primary) hypertension (8) Pacemaker Current Visit: Yes Status: Chronic Assessment and plan: Chronic. (9) Syncope and collapse Current Visit: Yes Status: Acute Assessment and plan: Pt appears to be stable today and feels better. Most likely vasovagal in nature while in bathroom. Continue telemetry Brick Veneer Maker consult, appreciate their recommendation consultation. Monitor vital signs per admission orders. (10) DVT prophylaxis Current Visit: Yes Status: Acute Assessment and plan: Patient is anticoagulated and on warfarin. Pharmacy is dosing. Encourage ambulation with assistance. (11) Acute exacerbation of CHF (congestive heart failure) Current Visit: Yes Status: Ruled-out Assessment and plan: Patient is euvolemic with clear lung sounds, no peripheral edema. Chest x-ray shows that the lungs are clear, pulmonary vascularity is normal, cardiomediastinal silhouette is normal. Echocardiogram shows preserved ejection fraction, indeterminant diastolic dysfunction, no evidence of pulmonary hypertension and no significant valvular dysfunction. Previous mitral regurgitation is not visualized on this study. Patient is not in acute exacerbation of CHF. Qualifiers: Heart failure type: diastolic Qualified Code(s): I50.33 - Acute on chronic diastolic (congestive) heart failure - Time Spent With Patient less than 15 minutes - Subjective Interval history: Patient was seen and assessed at bedside and 9:40 AM. She is alert, oriented, pleasant. She answered questions appropriately. She states that she feels significantly better that she did previously. Denies chest pain, SOB, n/v/ diaphoresis, headache, dizziness. She denies abdominal pain and peripheral edema. - Constitutional Vitals: Temp Pulse Resp BP Pulse Ox 98.4 F 104 15 104/68 96 09/06/17 11:09 09/06/17 11:09 09/06/17 11:09 09/06/17 11:09 09/06/17 11:09 General appearance: Present: cooperative, mild distress (SOB), A&O X 3, pleasant , no acute distress, answers questions appropriately - Head Head exam: Present: atraumatic, normal inspection, normocephalic - Eye Eye exam: Present: normal appearance, conjuntiva pink, sclera anicteric - Neck Neck exam general surgery: Present: supple, trachea midline. Absent: lymphadenopathy, tenderness - Respiratory Respiratory exam: Present: CTAB. Absent: accessory muscle use, chest wall tenderness, rales, respiratory distress, rhonchi, wheezes - Cardiovascular Cardiovascular exam: Present: RRR, +S1, +S2. Absent: diastolic murmur, gallop, rubs, systolic murmur - GI/Abdominal GI/Abdominal exam: Present: normal bowel sounds, soft. Absent: distended, hepatomegaly, tenderness - Extremities Exam Extremities exam: Present: normal capillary refill, normal inspection, warm, radial pulses palpable and symmetrical. Absent: calf tenderness, cyanotic, pedal edema - Neurological Exam Neurological exam: Present: alert, oriented X3, no focal deficits. Absent: facial droop, speech deficit - Skin Skin exam: Present: dry, intact, normal color, warm. Absent: rash Internal Medicine: Result - Labs CBC & Chem 7: 09/06/17 04:16 09/06/17 04:16 Labs: Short CBC 09/06/17 Range/Units 04:16 WBC 13.8 H D (4.3-11.1) K/mcL Hgb 13.1 (11.5-15.4) g/dL Hct 40.2 (35.3-44.9) % Plt Count 193 (140-400) K/mcL Neutrophils # 11.4 H (1.6-8.9) K/mcL BMP 09/06/17 04:16 Sodium 140 Potassium 3.6 Chloride 105 Carbon Dioxide 29 BUN 19 Creatinine 0.99 Glucose 144 H Calcium 9.4 Liver Function 09/06/17 Range/Units 04:16 Total Bilirubin 0.6 (0.3-1.0) mg/dL AST 16 (13-39) Units/L ALT 8 (7-52) Units/L Alkaline Phosphatase 80 (34-104) Units/L Albumin 3.6 (3.5-5.7) g/dL - ABG Interpretation ABG results: ABG ABG pH 7.45 pH Units (7.32-7.45) 09/04/17 17:09 ABG pCO2 43 mmHg (35-45) 09/04/17 17:09 ABG pO2 97 mmHg (85-104) 09/04/17 17:09 ABG O2 Saturation 98 % (95-98) 09/04/17 17:09 PT/INR, D-dimer PT 36.3 Seconds (9.4-12.1) H D 09/06/17 04:16 D-Dimer 269 ng/mLFEU (0-500) 09/04/17 11:38 Consult Discharge Plan - Plan Referrals: Jonathan Osman MD [Primary Care Provider] -
[2017-09-06] MEDS ORDERED: *HR* Warfarin 2.5 MG TABLET PO ONE (18:00)
[2017-09-06] MEDS: Acetaminophen 325 MG TABLET PO PRN (18:38)
[2017-09-06 18:58] LABS: Bilirubin,Urine Negative (Negative); Blood,Urine Negative (Negative); Clarity,Urine Clear (Clear); Color,Urine Yellow (Yellow); Glucose,Urine (UA) Normal (Normal); Ketones,Urine Negative (Negative); Leukocyte Esterase,Urine Small (Negative); Nitrite,Urine Negative (Negative); Protein,Urine Trace mg/dL (Neg-Trace); Specific Gravity,Urine 1.022 (1.010-1.025); Urobilinogen,Urine Normal (Normal)
[2017-09-06 19:00] LABS: Bacteria,Urine None Seen per hpf (None-Few); Hyaline Casts,Urine None Seen per lpf (None-Few); Squamous Epithelial Cell,Urine Many per lpf (None-Few); WBC,Urine 15-30 per hpf (0-3)
[2017-09-07] MEDS: Ipratropium/Albuterol Neb 3 ML IH SCH ×4 (03:40→22:48)
[2017-09-07 08:13] LABS: INR 2.4; Prothrombin Time 26.4 Seconds (9.4-12.1)
[2017-09-07 08:27] LABS: Basophils # 0.1 K/mcL (0.0-0.2); Basophils % 0.3 %; Eosinophils # 0.1 K/mcL (0.0-0.6); Eosinophils % 0.7 %; Hematocrit 38.2 % (35.3-44.9); Hemoglobin 12.1 g/dL (11.5-15.4); Immature Granulocytes % 0.5 % (0-4); Lymphocytes # 1.6 K/mcL (0.6-4.6); Lymphocytes % 10.6 %; Mean Corpuscular HGB Conc 31.7 g/dL (31.6-35.5); Mean Corpuscular Hemoglobin 31.8 pg (28.0-33.3); Mean Corpuscular Volume 100.3 fL (83.0-100.0); Monocytes # 1.2 K/mcL (0.0-1.3); Monocytes % 7.6 %; Neutrophils # 12.2 K/mcL (1.6-8.9); Platelet Count 189 K/mcL (140-400); Red Blood Count 3.81 M/mcL (3.82-4.97); Red Cell Distribution Width 12.7 % (11.5-14.5); Segmented Neutrophils % 80.3 %
[2017-09-07] MEDS: Pantoprazole 40 MG VIAL IVP SCH (08:30)
[2017-09-07] MEDS: Gabapentin 300 MG CAPSULE PO SCH ×2 (08:30→20:07)
[2017-09-07] MEDS: Multivit/Ca/Min/Fe/FA 1 TAB TABLET PO SCH (08:30)
[2017-09-07] MEDS: Cholecalciferol (D-3) 1,000 UNIT TABLET PO SCH (08:31)
[2017-09-07 08:33] LABS: Alanine Aminotransferase 9 Units/L (7-52); Albumin 3.4 g/dL (3.5-5.7); Albumin/Globulin Ratio 1.5 (1.1-2.2); Alkaline Phosphatase 73 Units/L (34-104); Aspartate Amino Transferase 15 Units/L (13-39); BUN/Creatinine Ratio 14 (6-26); Bilirubin,Total 0.8 mg/dL (0.3-1.0); Blood Urea Nitrogen 10 mg/dL (8-23); Carbon Dioxide 28 mEq/L (23-29); Chloride 104 mEq/L (98-107); Globulin 2.3 g/dL (2.4-3.5); Glucose 115 mg/dL (70-105); Osmolality,Calculated 288 (280-300); Potassium 3.4 mEq/L (3.5-5.1); Sodium 139 mEq/L (136-145); Total Protein 5.7 g/dL (6.4-8.9); eGFR For African Americans > 60 (> 60); eGFR For Non-African Americans > 60 (> 60)
--- NOTE | 2017-09-07 08:59 | Cardiology Progress Note ---
Date of Encounter: 09/07/17 Time of Encounter: 09:30 Assessment and Plan (1) Paroxysmal atrial fibrillation Current Visit: Yes Status: Chronic H/o afib/aflutter. Sotalol increased one month ago due to increasing palpitations. Preciously decreased due to concern that sotalol was causing weakness and fatigue. After decreasing symptoms worsened. Did not appear symptoms were caused by sotalol. Patient still have palpitations at times. Noted to be tachycardiac HR 110's during episodes of presyncope. Sotalol decresed to 80 mg BID on 09/05/17, continue to wean and rate control with metoprolol. Discussed with Dr. Corral, continue sotalol 40 mg BID today, will increase lopressor to 50 mg BID. Further recs per EP. Of note patient reports marked symptom improvement after decrease sotalol dose. Consider amiodarone if b/p does not allow beta-odell--consider EP consult on Friday. Noted increasing WBC, elevated neutrophils, low grade temp (99.0). On coumadin for AC. INR 2.1. Recommend pharmacy to dose. EKG 09/05/17 NSR. QT/QTc 367/408. (2) Pre-syncope Current Visit: Yes Status: Acute Presyncopal event x2 during hospital stay. Etiology unclear. Both times noted to have tachycardia (HR 110's). Also noted to be hypotensive-- possible orthostatic. Last TTE 10/2016-LVEF 60%. Normal LV chamber size, wall thickness and function. Indeterminate diastolic function. Normal right ventricular structure and function. Moderate to severely dilated left atrium. Moderate mitral regurgitation. Moderate pulmonary hypertension. Estimated RVSP is 47 mmHg. A device lead was visualized in the right atrium and right ventricle. CT head shows no acute finding. Meningioma is unchanged from previous- family asking if this could cause symptoms. Will defer to primary team. Device check completed 09/05/2017: no events recorded at time of syncopal event. Continue to monitor. Discussion w patient/family: The assessment and plan as outlined above was discussed with the patient and/or family members who expressed understanding and agreement. All questions were answered. Thank you for involving us in the care of your patient. Please call with any questions. The patient will be discussed and reviewed with Dr. Corral; changes to be made accordingly. Subjective Principal diagnosis: Tachycardia, pre-syncope Interval history: Seen and examined. Patient reports she feels significantly better today. No cough/fever/chills No recurrent syncope/pre-syncopal episodes reported. Objective Vital Signs, Last 4 Hours Temp Pulse Resp BP Pulse Ox 09/07/17 08:35 99.0 F 108 17 133/75 95 General: Conversant, No Apparent Distress HEENT: Atraumatic, Normocephaly, Mucus Membranes Moist Cardiac: Reg Rate and Rhythm, Normal S1 and S2 Lungs: Normal Breath Sounds Neuro: Alert and responsive Abdomen: Soft Skin: No rashes noted on visualized skin Musculoskeletal: No Chest Wall Tenderness Extremities: No Edema, Normal Pulses Results 09/07/17 06:57 09/07/17 06:57 Lab Results 09/07/17 09/07/17 09/07/17 06:57 06:57 06:57 WBC 15.2 H Hgb 12.1 Hct 38.2 Plt Count 189 INR 2.4 Sodium 139 Potassium 3.4 L Chloride 104 Carbon Dioxide 28 BUN 10 Creatinine 0.74 Glucose 115 H Calcium 9.0 Total Bilirubin 0.8 AST 15 ALT 9 Alkaline Phosphatase 73 Active Medications Acetaminophen (Tylenol) 650 mg PO Q6HR PRN PRN Reason: Mild Pain/Fever Stop: 03/06/18 15:56 Last Admin: 09/06/17 18:38 Dose: 650 mg Albuterol/Ipratropium (Duoneb) 3 ml IH [id number] GERMÁN Stop: 03/06/18 22:01 Last Admin: 09/07/17 10:08 Dose: 3 ml Atorvastatin Calcium (Lipitor) 40 mg PO QPM GERMÁN Stop: 03/06/18 18:01 Last Admin: 09/06/17 18:38 Dose: 40 mg Duloxetine HCl (Cymbalta) 30 mg PO BID GERMÁN Stop: 03/06/18 21:01 Last Admin: 09/07/17 08:31 Dose: 30 mg Gabapentin (Neurontin) 600 mg PO BID GERMÁN Stop: 03/08/18 21:01 Last Admin: 09/07/17 08:30 Dose: 600 mg Guaifenesin (Mucinex) 600 mg PO BID GERMÁN Stop: 03/06/18 21:01 Last Admin: 09/07/17 08:30 Dose: 600 mg Metoprolol Tartrate (Lopressor) 50 mg PO BID GERMÁN Stop: 03/09/18 21:01 Mirtazapine (Remeron) 7.5 mg PO DAILY PRN PRN Reason: APPETITE STIMULANT Multivitamins/Calcium (Thera M Plus) 1 tab PO DAILY GERMÁN Stop: 03/07/18 09:01 Last Admin: 09/07/17 08:30 Dose: 1 tab Naloxone HCl (Narcan) 0.4 mg IVP Q2MIN PRN PRN Reason: SEE COMMENTS Stop: 03/06/18 15:56 Pantoprazole Sodium (Protonix) 40 mg IVP DAILY GERMÁN Stop: 03/06/18 16:16 Last Admin: 09/07/17 08:30 Dose: 40 mg Potassium Chloride (Potassium Chloride) 20 meq PO DAILY GERMÁN Stop: 03/07/18 09:01 Last Admin: 09/07/17 08:30 Dose: 20 meq Sotalol HCl (Betapace) 40 mg PO BID GERMÁN Stop: 03/08/18 21:01 Last Admin: 09/07/17 08:30 Dose: 40 mg Vitamin D (Vitamin D) 1,000 unit PO DAILY GERMÁN Stop: 03/07/18 09:01 Last Admin: 09/07/17 08:31 Dose: 1,000 unit Warfarin Sodium (Coumadin Perpt) 1 each PO DAILY@1800 PRN PRN Reason: SEE COMMENTS Stop: 03/06/18 18:01 - Imaging and Cardiology Echo: report reviewed Other Results: 12 hour tele: avg CG=165 ST/AT. - EKG Interpretation EKG results cardiology: personally reviewed Consult Discharge Plan - Plan Referrals: Jonathan Osman MD [Primary Care Provider] -
[2017-09-07 17:35] LABS: Albumin 3.6 g/dL (3.5-5.7); Albumin/Globulin Ratio 1.4 (1.1-2.2); Bilirubin,Direct 0.2 mg/dL (0.0-0.2); Bilirubin,Indirect 0.7 mg/dL (0.0-1.2); Bilirubin,Total 0.9 mg/dL (0.3-1.0); Globulin 2.6 g/dL (2.4-3.5); Total Protein 6.2 g/dL (6.4-8.9)
--- NOTE | 2017-09-07 17:43 | Internal Med Progress Note ---
Date of Encounter: 09/07/17 Time of Encounter: 08:20 - Assessment and plan (1) Tachycardia Current Visit: Yes Status: Acute Assessment and plan: Rate has slowed, anywhere from 80s to 100. Pt denies chest pain, n/v, diaphoresis, SOB and states that she feels better. Sotalol has been decreased to 40mg po BID, pt being weaned and will rate control with metoprolol. Cardiology has evaluated patient, she will stay and see car inspector tomorrow, most likely will be discharged if labs and abdomen are stable. Continue telemetry Cardiology following (2) Dizziness Current Visit: Yes Status: Resolved Assessment and plan: Since rate is better controlled and sotalol has been discontinued, this seems to have resolved. Most likely presyncope due to tachycardia, hypotension. Sotalol has been decreased, metoprolol for rate control Continue director of research for safety, fall precautions. Zofran for nausea. 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 (4) Atrial fibrillation Current Visit: Yes Status: Chronic Assessment and plan: Prior history. Patient currently has pacemaker. Rate controlled with metoprolol, Sotalol has been decreased to 40mg po BID, attempting to wean. Patient is anticoagulated on Coumadin. Pharmacy to dose Qualifiers: Atrial fibrillation type: chronic Qualified Code(s): I48.2 - Chronic atrial fibrillation (5) GERD (gastroesophageal reflux disease) Current Visit: Yes Status: Chronic Assessment and plan: Chronic. Continue medications. Qualifiers: Esophagitis presence: esophagitis presence not specified Qualified Code(s) : K21.9 - Gastro-esophageal reflux disease without esophagitis (6) HLD (hyperlipidemia) Current Visit: Yes Status: Chronic Assessment and plan: Chronic. Continue home medications. Well controlled, continue to monitor. Qualifiers: Hyperlipidemia type: pure hypercholesterolemia Qualified Code(s): E78.00 - Pure hypercholesterolemia, unspecified; E78.0 - Pure hypercholesterolemia (7) HTN (hypertension) Current Visit: Yes Status: Chronic Qualifiers: Hypertension type: essential hypertension Qualified Code(s): I10 - Essential (primary) hypertension (8) Pacemaker Current Visit: Yes Status: Chronic Assessment and plan: Chronic. (9) Syncope and collapse Current Visit: Yes Status: Acute Assessment and plan: Pt appears to be stable today and feels better. Most likely vasovagal in nature while in bathroom. Continue telemetry [employer] consult, appreciate their recommendation consultation. Monitor vital signs per admission orders. (10) DVT prophylaxis Current Visit: Yes Status: Acute Assessment and plan: Patient is anticoagulated and on warfarin. Pharmacy is dosing. Encourage ambulation with assistance. (11) Acute exacerbation of CHF (congestive heart failure) Current Visit: Yes Status: Ruled-out Assessment and plan: Patient is euvolemic with clear lung sounds, no peripheral edema. Chest x-ray shows that the lungs are clear, pulmonary vascularity is normal, cardiomediastinal silhouette is normal. Echocardiogram shows preserved ejection fraction, indeterminant diastolic dysfunction, no evidence of pulmonary hypertension and no significant valvular dysfunction. Previous mitral regurgitation is not visualized on this study. Patient is not in acute exacerbation of CHF. Qualifiers: Heart failure type: diastolic Qualified Code(s): I50.33 - Acute on chronic diastolic (congestive) heart failure (12) Constipation Current Visit: Yes Status: Acute Assessment and plan: Patient with abdominal pain, mild distress today. KUB completed. Patient with leukocytosis, tachycardia. We will continue to investigate if there is source of infection in the abdomen. CT abdomen and chest ordered for evaluation. If no obvious sources of infection or site of pain, will do enemas tomorrow. KUB X-Ray 09/07/17 15:05 IMPRESSION: Moderate to large stool burden within the colon and rectum. D/ / 09/07/2017 15:53:19 Wyatt Del Rio MD / anil Interpreting Provider: Wyatt Del Rio MD Qualifiers: Constipation type: unspecified constipation type Qualified Code(s): K59.00 - Constipation, unspecified (13) Leukocytosis Current Visit: Yes Status: Acute Assessment and plan: Patient with elevated white counts, greater than 15 today. Patient has some abdominal pain, KUB shows large stool burden in colon and rectum. Leukocytosis could be reactive due to patient's 2 rapid responses since admission, tachycardia, abdominal pain. CT abdomen, CT chest has been added to look for sources of infection. Chest x-ray and urine were negative. Respiratory infectious panel has been collected and has not resulted yet. Patient is not taking steroids. I will hold off on prophylactic antibiotics until we are closer to finding a source of infection. At this time, currently meets sirs criteria with tachycardia and leukocytosis. Qualifiers: Leukocytosis type: unspecified Qualified Code(s): D72.829 - Elevated white blood cell count, unspecified - Time Spent With Patient less than 15 minutes - Subjective Interval history: Patient was seen and assessed at bedside and 0820 AM. She is alert, oriented, pleasant. She answered questions appropriately. She states that she feels significantly better that she did previously. Denies chest pain, SOB, n/v/ diaphoresis, headache, dizziness. She denied abdominal pain and peripheral edema. Later in the day, I was called to the unit to look at patient. She appeared to be in distress and was having diffuse abdominal pain. She also has leukocytosis. Abdomen was tender, soft, mildly distended, hyperactive bowel sounds noted. - Constitutional Vitals: Temp Pulse Resp BP Pulse Ox 98.1 F 115 16 122/71 98 09/07/17 15:56 09/07/17 15:56 09/07/17 15:56 09/07/17 15:56 09/07/17 15:56 General appearance: Present: cooperative, A&O X 3, pleasant, no acute distress, answers questions appropriately - Head Head exam: Present: atraumatic, normal inspection, normocephalic - Eye Eye exam: Present: normal appearance, conjuntiva pink, sclera anicteric - Neck Neck exam general surgery: Present: supple, trachea midline. Absent: lymphadenopathy, tenderness - Respiratory Respiratory exam: Present: CTAB. Absent: accessory muscle use, decreased breath sounds, rales, respiratory distress, rhonchi, wheezes - Cardiovascular Cardiovascular exam: Present: RRR, +S1, +S2. Absent: diastolic murmur, gallop, rubs, systolic murmur - GI/Abdominal GI/Abdominal exam: Present: distended, normal bowel sounds, soft, tenderness, no peritoneal signs. Absent: firm, hepatomegaly - Extremities Exam Extremities exam: Present: normal capillary refill, normal inspection, warm, radial pulses palpable and symmetrical. Absent: calf tenderness, cyanotic, pedal edema, tenderness - Neurological Exam Neurological exam: Present: alert, oriented X3, no focal deficits. Absent: facial droop, speech deficit - Skin Skin exam: Present: dry, intact, normal color, warm. Absent: rash Internal Medicine: Result - Labs CBC & Chem 7: 09/07/17 06:57 09/07/17 06:57 Labs: Short CBC 09/07/17 Range/Units 06:57 WBC 15.2 H (4.3-11.1) K/mcL Hgb 12.1 (11.5-15.4) g/dL Hct 38.2 (35.3-44.9) % Plt Count 189 (140-400) K/mcL Neutrophils # 12.2 H (1.6-8.9) K/mcL BMP 09/07/17 06:57 Sodium 139 Potassium 3.4 L Chloride 104 Carbon Dioxide 28 BUN 10 Creatinine 0.74 Glucose 115 H Calcium 9.0 Liver Function 09/07/17 09/07/17 Range/Units 06:57 16:48 Total Bilirubin 0.8 0.9 (0.3-1.0) mg/dL Direct Bilirubin 0.2 (0.0-0.2) mg/dL AST 15 19 (13-39) Units/L ALT 9 9 (7-52) Units/L Alkaline Phosphatase 73 74 (34-104) Units/L Albumin 3.4 L 3.6 (3.5-5.7) g/dL Urine 09/06/17 Range/Units 18:45 Urine Color Yellow (Yellow) Urine Clarity Clear (Clear) Urine pH 6.0 (5.0-8.0) pH Units Ur Specific Reynolds 1.022 (1.010-1.025) Urine Protein Trace (Neg-Trace) mg/dL Urine Glucose (UA) Normal (Normal) mg/dL - ABG Interpretation ABG results: ABG ABG pH 7.45 pH Units (7.32-7.45) 09/04/17 17:09 ABG pCO2 43 mmHg (35-45) 09/04/17 17:09 ABG pO2 97 mmHg (85-104) 09/04/17 17:09 ABG O2 Saturation 98 % (95-98) 09/04/17 17:09 PT/INR, D-dimer PT 26.4 Seconds (9.4-12.1) H 09/07/17 06:57 D-Dimer 269 ng/mLFEU (0-500) 09/04/17 11:38 - Impressions Impressions Chest X-Ray 09/06/17 17:58 IMPRESSION: Left lower lobe subsegmental atelectasis. COPD. Pacer. Moderate hiatal hernia. D/ / Nura Rocha MD / Nura Rocha MD Interpreting Provider: Nura Rocha MD X-Ray 09/07/17 15:05 IMPRESSION: Moderate to large stool burden within the colon and rectum. D/ / 09/07/2017 15:53:19 Wyatt Del Rio MD / anil Interpreting Provider: Wyatt Del Rio MD Consult Discharge Plan - Plan Referrals: Jonathan Osman MD [Primary Care Provider] -
[2017-09-07] MEDS: Furosemide 40 MG TABLET PO SCH (17:53)
[2017-09-07] MEDS ORDERED: *HR* Warfarin 5 MG TABLET PO ONE (18:00)
[2017-09-07 19:14] LABS: Adenovirus Not Detected (Not Detect); Bordetella Pertussis Not Detected (Not Detect); Chlamydophila pneumoniae Not Detected (Not Detect); Coronavirus 229E Not Detected (Not Detect); Coronavirus HKU1 Not Detected (Not Detect); Coronavirus NL63 Not Detected (Not Detect); Coronavirus OC43 Not Detected (Not Detect); Human Metapneumovirus Not Detected (Not Detect); Human Rhinovirus/Enterovirus Not Detected (Not Detect); Influenza A Subtype 2009 H1 Not Detected (Not Detect); Influenza A Untypeable Not Detected (Not Detect); Influenza B Not Detected (Not Detect); Mycoplasma pneumoniae Not Detected (Not Detect); Parainfluenza Virus 1 Not Detected (Not Detect); Parainfluenza Virus 2 Not Detected (Not Detect); Parainfluenza Virus 3 Not Detected (Not Detect); Parainfluenza Virus 4 Not Detected (Not Detect); Respiratory Syncytial Virus Not Detected (Not Detect)
[2017-09-07] MEDS: Acetaminophen 325 MG TABLET PO PRN (20:06)
[2017-09-07] MEDS: MetroNIDAZOLE 500 MG/100 ML 500 MG/100 ML BAG IVPB SCH (23:21)
[2017-09-08] MEDS: Ipratropium/Albuterol Neb 3 ML IH SCH ×4 (03:34→22:12)
[2017-09-08 08:08] LABS: INR 1.7; Prothrombin Time 18.4 Seconds (9.4-12.1)
[2017-09-08 08:19] LABS: Basophils # 0.1 K/mcL (0.0-0.2); Basophils % 0.4 %; Eosinophils # 0.2 K/mcL (0.0-0.6); Eosinophils % 1.3 %; Hemoglobin 12.2 g/dL (11.5-15.4); Immature Granulocytes % 0.2 % (0-4); Lymphocytes # 1.8 K/mcL (0.6-4.6); Lymphocytes % 13.4 %; Mean Corpuscular HGB Conc 32.1 g/dL (31.6-35.5); Mean Corpuscular Hemoglobin 31.7 pg (28.0-33.3); Mean Corpuscular Volume 98.7 fL (83.0-100.0); Monocytes % 7.5 %; Neutrophils # 10.1 K/mcL (1.6-8.9); Platelet Count 193 K/mcL (140-400); Red Blood Count 3.85 M/mcL (3.82-4.97); Red Cell Distribution Width 12.9 % (11.5-14.5); Segmented Neutrophils % 77.2 %
[2017-09-08 08:24] LABS: BUN/Creatinine Ratio 15 (6-26); Blood Urea Nitrogen 11 mg/dL (8-23); Calcium 9.2 mg/dL (8.6-10.3); Carbon Dioxide 29 mEq/L (23-29); Chloride 103 mEq/L (98-107); Glucose 108 mg/dL (70-105); Osmolality,Calculated 290 (280-300); Potassium 3.5 mEq/L (3.5-5.1); Sodium 140 mEq/L (136-145); eGFR For African Americans > 60 (> 60); eGFR For Non-African Americans > 60 (> 60)
[2017-09-08] MEDS: Cholecalciferol (D-3) 1,000 UNIT TABLET PO SCH (08:42)
[2017-09-08] MEDS: Multivit/Ca/Min/Fe/FA 1 TAB TABLET PO SCH (08:42)
[2017-09-08] MEDS: Furosemide 40 MG TABLET PO SCH (08:42)
[2017-09-08] MEDS: MetroNIDAZOLE 500 MG/100 ML 500 MG/100 ML BAG IVPB SCH ×3 (08:42→23:56)
[2017-09-08] MEDS: Gabapentin 300 MG CAPSULE PO SCH ×2 (08:42→20:48)
--- NOTE | 2017-09-08 15:35 | Cardiology Progress Note ---
Date of Encounter: 09/08/17 Time of Encounter: 11:30 Assessment and Plan (1) Paroxysmal atrial fibrillation Current Visit: Yes Status: Chronic H/o afib/aflutter. Sotalol increased one month ago due to increasing palpitations. Preciously decreased due to concern that sotalol was causing weakness and fatigue. After decreasing symptoms worsened. Did not appear symptoms were caused by sotalol. Patient still have palpitations at times. Noted to be tachycardiac HR 110's during episodes of presyncope. Sotalol decresed to 80 mg BID on 09/05/17, to sotalol 40 mg BID 09/07/17. Discontinued to sotalol today. Will increase metoprolol as tolerated to rate control. Of note patient reports marked symptom improvement after decrease sotalol dose. Continues to be tachycardic. ST with PAF seen in telemetry. Avg HR 101. Noted increasing WBC, elevated neutrophils, low grade temp (99.0). Hospitalist following. On coumadin for AC. INR 2.1. Recommend pharmacy to dose. EKG 09/05/17 NSR. QT/QTc 367/408. Consult EP for further recommendations. (2) Pre-syncope Current Visit: Yes Status: Acute Presyncopal event x2 during hospital stay. Etiology unclear. Both times noted to have tachycardia (HR 110's). Also noted to be hypotensive-- possible orthostatic. Last TTE 10/2016-LVEF 60%. Normal LV chamber size, wall thickness and function. Indeterminate diastolic function. Normal right ventricular structure and function. Moderate to severely dilated left atrium. Moderate mitral regurgitation. Moderate pulmonary hypertension. Estimated RVSP is 47 mmHg. A device lead was visualized in the right atrium and right ventricle. CT head shows no acute finding. Meningioma is unchanged from previous- family asking if this could cause symptoms. Will defer to primary team. Device check completed 09/05/2017: no events recorded at time of syncopal event. Continue to monitor. Discussion w patient/family: The assessment and plan as outlined above was discussed with the patient and/or family members who expressed understanding and agreement. All questions were answered. Thank you for involving us in the care of your patient. Please call with any questions. Subjective Principal diagnosis: Tachycardia, pre-syncope Interval history: Ms. Tavares reports feeling better. Denies recurrent pre-syncopal events in the last 24 hours. She feels like she has more energy. C/o abdominal discomfort and constipaption. Hopsitalist following. Objective Vital Signs, Last 4 Hours Temp Pulse Resp BP Pulse Ox 09/08/17 15:29 16 92 09/08/17 15:16 99.0 F 107 16 118/72 92 09/08/17 11:54 98.9 F 108 18 100/65 91 General: Conversant, No Apparent Distress HEENT: Atraumatic, Normocephaly, Mucus Membranes Moist Neck: No JVD, Normal carotid pulses Cardiac: Other (irregular) Lungs: Normal Breath Sounds, No Wheeze, Rales, Rhonchi Neuro: Alert and responsive, No focal deficits noted Abdomen: Soft, Non-Tender Skin: No rashes noted on visualized skin Musculoskeletal: No Chest Wall Tenderness Extremities: No Clubbing, No Cyanosis, No Edema, Normal Pulses Results 09/08/17 06:25 09/08/17 06:25 Lab Results 09/07/17 09/08/17 09/08/17 16:48 06:25 06:25 WBC 13.1 H Hgb 12.2 Hct 38.0 Plt Count 193 INR 1.7 Sodium Potassium Chloride Carbon Dioxide BUN Creatinine Glucose Calcium Total Bilirubin 0.9 AST 19 ALT 9 Alkaline Phosphatase 74 Amylase 29 Lipase 47 09/08/17 06:25 WBC Hgb Hct Plt Count INR Sodium 140 Potassium 3.5 Chloride 103 Carbon Dioxide 29 BUN 11 Creatinine 0.73 Glucose 108 H Calcium 9.2 Total Bilirubin AST ALT Alkaline Phosphatase Amylase Lipase - Imaging and Cardiology Echo: report reviewed - EKG Interpretation EKG results cardiology: personally reviewed Consult Discharge Plan - Plan Referrals: Jonathan Osman MD [Primary Care Provider] -
--- NOTE | 2017-09-08 17:18 | Internal Med Progress Note ---
Date of Encounter: 09/08/17 Time of Encounter: 12:30 - Assessment and plan (1) Tachycardia Current Visit: Yes Status: Acute Assessment and plan: Pt remains slightly tachycardic, rate around 100. Pt denies chest pain, n/v, diaphoresis, SOB and states that she feels better. Sotalol has been stopped today, will rate control with metoprolol, titrate as tolerated. Cardiology following, appreciate their recommendations and consultation. Continue telemetry Cardiology following (2) Dizziness Current Visit: Yes Status: Resolved Assessment and plan: Since rate is better controlled and sotalol has been discontinued, this seems to have resolved. Most likely presyncope due to tachycardia, hypotension. Sotalol has been stopped, metoprolol for rate control Continue hydrogen cell tender for safety, fall precautions. Zofran for nausea. 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 Continue home medications. (4) Atrial fibrillation Current Visit: Yes Status: Chronic Assessment and plan: Prior history. Patient currently has pacemaker. Rate controlled with metoprolol, Sotalol has been stopped. Patient is anticoagulated on Coumadin. Pharmacy to dose Qualifiers: Atrial fibrillation type: chronic Qualified Code(s): I48.2 - Chronic atrial fibrillation (5) GERD (gastroesophageal reflux disease) Current Visit: Yes Status: Chronic Assessment and plan: Chronic. Continue medications. Qualifiers: Esophagitis presence: esophagitis presence not specified Qualified Code(s) : K21.9 - Gastro-esophageal reflux disease without esophagitis (6) HLD (hyperlipidemia) Current Visit: Yes Status: Chronic Assessment and plan: Chronic. Continue Lipitor. Well controlled, continue to monitor. Qualifiers: Hyperlipidemia type: pure hypercholesterolemia Qualified Code(s): E78.00 - Pure hypercholesterolemia, unspecified; E78.0 - Pure hypercholesterolemia (7) HTN (hypertension) Current Visit: Yes Status: Chronic Assessment and plan: Chronic. Well-controlled. Continue home medications. Qualifiers: Hypertension type: essential hypertension Qualified Code(s): I10 - Essential (primary) hypertension (8) Pacemaker Current Visit: Yes Status: Chronic Assessment and plan: Chronic. (9) Syncope and collapse Current Visit: Yes Status: Acute Assessment and plan: Pt appears to be stable today and feels better. Most likely vasovagal episodes, as well as tachycardia and dizziness. Continue telemetry Quality Associate consult, appreciate their recommendation consultation. Monitor vital signs per admission orders. (10) DVT prophylaxis Current Visit: Yes Status: Acute Assessment and plan: Patient is anticoagulated and on warfarin. Pharmacy is dosing. Remains subtherapeutic 1.7. Encourage ambulation with assistance. (11) Acute exacerbation of CHF (congestive heart failure) Current Visit: Yes Status: Ruled-out Assessment and plan: Patient is euvolemic with clear lung sounds, no peripheral edema. Chest x-ray shows that the lungs are clear, pulmonary vascularity is normal, cardiomediastinal silhouette is normal. Echocardiogram shows preserved ejection fraction, indeterminant diastolic function, no evidence of pulmonary hypertension and no significant valvular dysfunction. Previous mitral regurgitation is not visualized on this study. Patient is not in acute exacerbation of chronic diastolic CHF. Qualifiers: Heart failure type: diastolic Qualified Code(s): I50.33 - Acute on chronic diastolic (congestive) heart failure (12) Constipation Current Visit: Yes Status: Acute Assessment and plan: Patient with abdominal pain, mild distress today. KUB completed. Patient with leukocytosis, tachycardia. We will continue to investigate if there is source of infection in the abdomen. CT abdomen and chest ordered for evaluation. If no obvious sources of infection or site of pain, will do enemas tomorrow. KUB X-Ray 09/07/17 15:05 IMPRESSION: Moderate to large stool burden within the colon and rectum. D/ / 09/07/2017 15:53:19 Wyatt Del Rio MD / anil Interpreting Provider: Wyatt Del Rio MD Qualifiers: Constipation type: unspecified constipation type Qualified Code(s): K59.00 - Constipation, unspecified (13) Leukocytosis Current Visit: Yes Status: Acute Assessment and plan: Chest x-ray and urine were negative. Respiratory infectious panel negative Chest CT negative for acute problem, large hiatal hernia noted. Abdomen pelvis CT showed acute colitis and distal descending colon and sigmoid. Patient was started on IV Cipro and Flagyl. At this time, currently meets sirs criteria with tachycardia and leukocytosis. Tachycardia due to uncontrolled A. fib. Qualifiers: Leukocytosis type: unspecified Qualified Code(s): D72.829 - Elevated white blood cell count, unspecified (14) Colitis Current Visit: Yes Status: Acute Assessment and plan: Patient was abdominal pain, leukocytosis, constipation. CT abdomen showed colitis of descending colon and sigmoid colon. Patient has been started on IV antibiotics, plan as above. Continue IV antibiotics Continue diet as tolerated Patient is on stool softener Monitor labs and vital signs. - Time Spent With Patient less than 15 minutes - Subjective Interval history: Patient was seen and assessed at bedside and 1230 PM. She is alert, oriented, pleasant. She answered questions appropriately. Denies chest pain, SOB, n/v/ diaphoresis, headache, dizziness. Reports diffuse abdominal pain that is improving. She is aware of plan of care of both cardiology and hospitalists and is anxious to go home as soon as possible. - Constitutional Vitals: Temp Pulse Resp BP Pulse Ox 99.0 F 107 16 118/72 92 09/08/17 15:16 09/08/17 15:16 09/08/17 15:29 09/08/17 15:16 09/08/17 15:29 General appearance: Present: cooperative, A&O X 3, pleasant, no acute distress, answers questions appropriately - Head Head exam: Present: atraumatic, normal inspection, normocephalic - Eye Eye exam: Present: normal appearance, conjuntiva pink, sclera anicteric - Neck Neck exam general surgery: Present: supple, trachea midline. Absent: lymphadenopathy, tenderness - Respiratory Respiratory exam: Present: CTAB. Absent: accessory muscle use, chest wall tenderness, rales, respiratory distress, rhonchi, wheezes - Cardiovascular Cardiovascular exam: Present: RRR, +S1, +S2. Absent: diastolic murmur, gallop, rubs, systolic murmur - GI/Abdominal GI/Abdominal exam: Present: diminished bowel sounds, firm, soft. Absent: distended, tenderness - Extremities Exam Extremities exam: Present: normal capillary refill, normal inspection, warm, radial pulses palpable and symmetrical. Absent: calf tenderness, cyanotic, pedal edema, tenderness - Neurological Exam Neurological exam: Present: alert, oriented X3, no focal deficits. Absent: facial droop, speech deficit - Skin Skin exam: Present: dry, intact, normal color, warm. Absent: rash Internal Medicine: Result - Labs CBC & Chem 7: 09/08/17 06:25 09/08/17 06:25 - ABG Interpretation ABG results: ABG ABG pH 7.45 pH Units (7.32-7.45) 09/04/17 17:09 ABG pCO2 43 mmHg (35-45) 09/04/17 17:09 ABG pO2 97 mmHg (85-104) 09/04/17 17:09 ABG O2 Saturation 98 % (95-98) 09/04/17 17:09 PT/INR, D-dimer PT 18.4 Seconds (9.4-12.1) H 09/08/17 06:25 D-Dimer 269 ng/mLFEU (0-500) 09/04/17 11:38 Consult Discharge Plan - Plan Referrals: Jonathan Osman MD [Primary Care Provider] -
[2017-09-08] MEDS ORDERED: *HR* Warfarin 5 MG TABLET PO ONE (18:00)
[2017-09-08] MEDS: Acetaminophen 325 MG TABLET PO PRN (18:44)
[2017-09-09] MEDS: Ipratropium/Albuterol Neb 3 ML IH SCH ×3 (03:44→16:05)
[2017-09-09 04:32] LABS: BUN/Creatinine Ratio 20 (6-26); Blood Urea Nitrogen 13 mg/dL (8-23); Calcium 9.3 mg/dL (8.6-10.3); Carbon Dioxide 27 mEq/L (23-29); Chloride 103 mEq/L (98-107); Glucose 106 mg/dL (70-105); Osmolality,Calculated 289 (280-300); Potassium 3.5 mEq/L (3.5-5.1); Sodium 139 mEq/L (136-145); eGFR For African Americans > 60 (> 60); eGFR For Non-African Americans > 60 (> 60)
[2017-09-09 04:38] LABS: INR 1.7; Prothrombin Time 18.9 Seconds (9.4-12.1)
[2017-09-09 05:00] LABS: Basophils # 0.1 K/mcL (0.0-0.2); Basophils % 0.5 %; Eosinophils # 0.2 K/mcL (0.0-0.6); Eosinophils % 2.2 %; Hematocrit 36.1 % (35.3-44.9); Immature Granulocytes % 0.4 % (0-4); Lymphocytes # 1.9 K/mcL (0.6-4.6); Lymphocytes % 19.2 %; Mean Corpuscular HGB Conc 33.2 g/dL (31.6-35.5); Mean Corpuscular Hemoglobin 32.4 pg (28.0-33.3); Mean Corpuscular Volume 97.6 fL (83.0-100.0); Monocytes # 0.8 K/mcL (0.0-1.3); Monocytes % 8.2 %; Platelet Count 219 K/mcL (140-400); Red Cell Distribution Width 12.7 % (11.5-14.5); Segmented Neutrophils % 69.5 %
--- NOTE | 2017-09-09 08:37 | Electrocardiograph Report ---
[place] [id number] Test Date: 2017-09-05 Pat Name: Tia Tavares Department: 113 Room: 3B23 Gender: F Pheresis Specialist: : [id number] Requested By: Estrella Corona Order Number: [id number] Reading MD: Praveen Corral Measurements Intervals [place] Rate: 116 P: 79 VA: 245 QRS: 270 QRSD: 165 T: 90 QT: 398 QTc: 467 Interpretive Statements ELECTRONIC VENTRICULAR PACEMAKER ABNORMAL RHYTHM ECG INTERPRETATION BASED ON A DEFAULT AGE OF 40 YEARS Electronically Signed On 09-09-2017 8:36:00 EST by Praveen Corral
[2017-09-09] MEDS: Gabapentin 300 MG CAPSULE PO SCH (09:01)
[2017-09-09] MEDS: Cholecalciferol (D-3) 1,000 UNIT TABLET PO SCH (09:01)
[2017-09-09] MEDS: Furosemide 40 MG TABLET PO SCH (09:01)
[2017-09-09] MEDS: Multivit/Ca/Min/Fe/FA 1 TAB TABLET PO SCH (09:01)
[2017-09-09] MEDS: MetroNIDAZOLE 500 MG/100 ML 500 MG/100 ML BAG IVPB SCH (09:01)
[2017-09-09 12:00] VITALS: BP 123/78
--- NOTE | 2017-09-09 15:29 | Discharge Summary ---
- NOTES TO OUTPATIENT PROVIDER Notes to Outpatient Provider: Increased metoprolol to 100 mg twice a day, discontinued sotalol, to follow-up with Dr. Cruz as scheduled by cardiology Date of Encounter: 09/09/17 Time of Encounter: 15:24 - Discharge Diagnosis (1) Atrial fibrillation Priority: Primary Status: Chronic Qualifiers: Atrial fibrillation type: chronic Qualified Code(s): I48.2 - Chronic atrial fibrillation (2) Dizziness Priority: Primary Status: Resolved (3) GERD (gastroesophageal reflux disease) Priority: Primary Status: Chronic Comments: Continue home medications well controlled during hospitalization Qualifiers: Esophagitis presence: esophagitis presence not specified Qualified Code(s) : K21.9 - Gastro-esophageal reflux disease without esophagitis (4) HLD (hyperlipidemia) Priority: Primary Status: Chronic Comments: Continue Lipitor Qualifiers: Hyperlipidemia type: pure hypercholesterolemia Qualified Code(s): E78.00 - Pure hypercholesterolemia, unspecified; E78.0 - Pure hypercholesterolemia (5) HTN (hypertension) Priority: Primary Status: Chronic Comments: Well-controlled continue home medications Qualifiers: Hypertension type: essential hypertension Qualified Code(s): I10 - Essential (primary) hypertension (6) Syncope and collapse Priority: Primary Status: Acute Comments: Patient felt better today after admission. Was most likely a vasovagal episode. She also had tachycardia and dizziness at the time. Cardiology was consulted. Vital signs were monitored and she was stable no further episodes of syncope during hospitalization (7) Tachycardia Priority: Primary Status: Acute Comments: Patient remains slightly tachycardic with a rate around 100. She had no chest pain, nausea or vomiting. Denied any sweats or shortness of breath and stated she felt better after admission. Sotalol was stopped and rate control with metipranolol. Cardiology was following made recommendations regarding discharge versus remaining in the hospital with Dr. Cruz to follow. Patient chose to go home on 100mg metoprol twice a day and follow-up with Dr. Cruz as an outpatient (8) Pacemaker Priority: Primary Status: Chronic (9) Anxiety associated with depression Priority: Secondary Status: Chronic Comments: Resume home medications on discharge Hospital course: Ms. Tavares is a 76 year old female with a past medical history of arthritis, atrial fib, basal cell skin carcinoma, cardiomyopathy, dementia, GERD, hypertension, osteoporosis, TIAs She presented to the ED with complaints of shortness of breath and dyspnea for 2 -3 days it has worsened over the previous 24 hours before admission. She states she was short of breath with exertion. She had palpitations with a history of atrial fibrillation. She had also complained of some dizziness and cough but denied recent illness, fevers, chills nausea, vomiting, headache, visual changes, abdominal pain, chest pain presyncope or syncope. She was found to be in atrial fibrillation with pacemaker in place. She will continue her Coumadin with pharmacy dosing. She had issues with rate control and dizziness, cardiology was consulted. Sotalol was discontinued and patient went home on metipranolol 100 twice a day. Cardiology how long discussion with the patient regarding treatment options including going home on the above- mentioned protocol and following up with Dr. Cruz in office or staying in the hospital have Dr. Cruz see her and adjust her rate control medications. The patient decided to go home and follow-up in the office. Discharge discussed with: patient, family, nurse, client insights consultant - Time Spent with Patient Total time spent providing and/or coordinating discharge services: Less than 30 minutes - Discharge Medications Prescriptions: Metoprolol [Lopressor] 100 mg PO BID #60 tablet Home Medications: Cholecalciferol (Vitamin D3) [Vitamin D3] 5,000 unit PO DAILY 08/03/15 [History] Multivitamin/Iron/Folic Acid [Centrum Complete Multivit Tab] 1 tab PO DAILY [History] Atorvastatin [Lipitor] 40 mg PO QPM 08/18/15 [History] Warfarin [Coumadin] 5 mg PO SUMOWETHFR 10/13/15 [History] Warfarin [Coumadin] 7.5 mg PO TUSA 10/13/15 [History] Mirtazapine 7.5 mg PO DAILY PRN 12/19/15 [History] Furosemide [Lasix] 40 mg PO DAILY #30 tablet 12/22/15 [Rx] Potassium Chloride [K-Tab ER] 20 meq PO DAILY #30 tablet.er 12/22/15 [Rx] Amlodipine Besylate 10 mg PO DAILY 09/04/17 [History] DULoxetine [Cymbalta] 30 mg PO BID 09/04/17 [History] Gabapentin [Neurontin] 600 mg PO TID 09/04/17 [History] Metoprolol [Lopressor] 100 mg PO BID #60 tablet 09/09/17 [Rx] Allergies/Adverse Reactions: 3 Allergy/AdvReac Type Severity Reaction Status Date / Time Prazosin [From Minipress] Allergy Anaphylaxis Verified 09/04/17 11:20 cephalexin [From Keflex] AdvReac Vomiting Verified 09/04/17 11:20 Date of admission: 09/08/17 14:40 Primary care physician: Jonathan Osman MD Discharging clinician: Di Cutler Anticipated date of discharge: 09/09/17 - Constitutional Vitals: Temp Pulse Resp BP Pulse Ox 98.3 F 101 18 123/78 92 09/09/17 11:59 09/09/17 11:59 09/09/17 11:59 09/09/17 11:59 09/09/17 11:59 General appearance: Present: cooperative, A&O X 3, pleasant, no acute distress, answers questions appropriately - Head Head exam: Present: atraumatic, normocephalic - Eye Eye exam: Present: PERRL, conjuntiva pink, sclera anicteric Pupils: Present: PERRL - Neck Neck exam general surgery: Present: supple, trachea midline. Absent: lymphadenopathy - Respiratory Respiratory exam: Present: CTAB. Absent: accessory muscle use, rales, rhonchi, wheezes - Cardiovascular Cardiovascular exam: Present: irregular rhythm, +S1, +S2. Absent: diastolic murmur, gallop, rubs, systolic murmur - GI/Abdominal GI/Abdominal exam: Present: normal bowel sounds, soft, no peritoneal signs. Absent: distended, tenderness - Extremities Exam Extremities exam: Present: warm, radial pulses palpable and symmetrical. Absent : calf tenderness, cyanotic, pedal edema - Neurological Exam Neurological exam: Present: CN II-XII intact, oriented X3, no focal deficits. Absent: pronater drift, facial droop, speech deficit - Skin Skin exam: Present: dry, intact, normal color, warm - Patient Status Disposition: Home, Self-Care Condition: Good Functional capacity at discharge: independent ambulation Overall status at discharge: patient is back to baseline - Discharge Instructions Follow Up With: Jonathan Osman MD [Primary Care Provider] - 09/22/17 2:00 pm - Diet and Activity Activity: increase activity as tolerated, resume usual activities as tolerated Diet: advance to your usual diet - VTE Documentation of Mechanical Device: Graduated compression elastic hosiery
--- NOTE | 2017-09-09 15:57 | Cardiology Progress Note ---
Date of Encounter: 09/09/17 Time of Encounter: 14:30 Assessment and Plan (1) Paroxysmal atrial fibrillation Current Visit: Yes Status: Chronic Per Cardiology: H/o afib/aflutter. Appears to been on sotalol now over the past one year. Previously decreased due to concern that sotalol was causing weakness and fatigue. After decreasing dose, symptoms worsened. Sotalol subsequently increased back to previous dosing about one month ago due to increasing palpitations. During this hospital stay, Sotalol decreased to 80 mg BID on 09/05/17 to sotalol 40 mg BID, but eventually discontinued with last dose yesterday morning. Average heart rate the past 12 hours 100, currently sinus tachycardia. Now on Lopressor 75 mg by mouth twice a day and systolic blood pressures in the 120s. I had lengthy discussion with patient and regarding potential titration of beta odell versus initiation of other antiarrhythmic medication. Patient and preferred beta odell titration, discharge home today, in follow- up in outpatient setting (attempted to discuss with daughter on the phone). Will increase Lopressor to 100 mg by mouth twice a day. Patient encouraged to keep her heart rate and blood pressure log and bring to follow-up appointment. Discussed with Dr. Heart (Dr. Fernie Cruz aware-- no EP c/s warranted since does not want another antiarrhythmic at this time). Cardiology will sign off, reconsult as needed, follow-up arranged. Discussed with primary service. Anticipate discharge later today. (2) On warfarin therapy Current Visit: No Status: Chronic Per Cardiology: Anticoagulated with Coumadin, current INR 1.7. Target INR 2.0-3.0. H&H stable , denies any active bleeding or blood loss. (3) Dizziness Current Visit: Yes Status: Resolved Per Cardiology: Symptoms appear resolved. Systolic blood pressure stable. No orthostatics noted. Reports ambulating hallway without any difficulty. Again, monitor heart rate and blood pressure home. (4) Pacemaker Current Visit: Yes Status: Chronic Per Cardiology: Previous records reviewed with device check completed 09/05/2017 which showed no events recorded at time of syncopal event. No evidence noted on telemetry overnight. Continue to monitor. Discussion w patient/family: The assessment and plan as outlined above was discussed with the patient and/or family members who expressed understanding and agreement. All questions were answered. Thank you for involving us in the care of your patient. Please call with any questions. Subjective Principal diagnosis: Tachycardia, pre-syncope Interval history: Patient denies any new concerns or complaints. Reports overall fatigue has improved. She denies any dizziness, lightheadedness, syncope, falls. Denies any chest pain. Denies any shortness of breath. Patient reports interest in going home today. Objective Vital Signs, Last 4 Hours Temp Pulse Resp BP Pulse Ox 09/09/17 11:59 98.3 F 101 18 123/78 92 General: Conversant, No Apparent Distress HEENT: Atraumatic, Normocephaly, Mucus Membranes Moist Cardiac: Reg Rate and Rhythm, Normal S1 and S2, No Murmur Lungs: Normal Breath Sounds, No Wheeze, Rales, Rhonchi Neuro: Alert and responsive, No focal deficits noted Skin: No rashes noted on visualized skin Extremities: No Clubbing, No Cyanosis, No Edema, Normal Pulses Results 09/09/17 03:11 09/09/17 03:11 Lab Results Laboratory Tests 09/05/17 09/05/17 09/07/17 05:22 05:22 06:57 WBC 15.2 H INR Potassium Creatinine Est GFR (Non-Af Amer) Hemoglobin A1c 6.1 H AST ALT LDL Cholesterol, Calc 78 09/07/17 09/09/17 09/09/17 06:57 03:11 03:11 WBC 10.0 INR 1.7 Potassium Creatinine Est GFR (Non-Af Amer) Hemoglobin A1c AST 15 ALT 9 LDL Cholesterol, Calc 09/09/17 03:11 WBC INR Potassium 3.5 Creatinine 0.65 Est GFR (Non-Af Amer) > 60 Hemoglobin A1c AST ALT LDL Cholesterol, Calc ITS Impressions Chest X-Ray 09/04/17 11:54 IMPRESSION: No acute abnormality. D/ / Hilario Mcqueen MD / Hilario Mcqueen MD Interpreting Provider: Hilario Mcqueen MD Echocardiogram 09/04/17 16:05 Impressions: LVEF 55%. Normal LV chamber size, wall thickness and function. Indeterminate diastolic function. Normal right ventricular structure and function. No evidence of pulmonary hypertension. No significant valvular dysfunction. Previous mitral regurgitation not visualized on this study. A device lead was visualized in the right atrium and right ventricle. Left Ventricular Wall Motion: Rest Echo Findings All wall segments showed normal motion. Findings: Study Quality * Technically sub-optimal due to clinical status. ECG Findings * Difficult to determine rhythm. Tachycardia noted. Left Ventricle * LVEF 55%. * Normal LV chamber size, wall thickness and function. * Indeterminate diastolic function. Right Ventricle * Normal right ventricular structure and function. Left Atrium * Moderately dilated left atrium. Right Atrium * Mildly dilated right atrium. Interatrial Septum * Interatrial septum not well evaluated. Aortic Valve * Aortic valve not well visualized. * No aortic regurgitation. * No aortic stenosis. Mitral Valve * Normal mitral valve structure and function. * No mitral regurgitation. * No mitral stenosis. Tricuspid Valve * Normal tricuspid valve structure and function. * Trace tricuspid regurgitation. * No evidence of pulmonary hypertension. Pulmonic Valve * Pulmonic valve not well visualized. Aorta * Normally sized aortic root. Pericardium * The pericardium appears normal. IVC * Normal IVC dimensions and inspiratory collapse. Device lead * A device lead was visualized in the right atrium and right ventricle. Pulmonary Artery * Normal visualized portions of the main pulmonary artery. Head CT 09/04/17 17:01 IMPRESSION: No acute intracranial abnormality. Unchanged right parafalcine meningioma. D/ / Broderick Morocho / Broderick Morocho Interpreting Provider: Broderick Morocho Chest X-Ray 09/06/17 17:58 IMPRESSION: Left lower lobe subsegmental atelectasis. COPD. Pacer. Moderate hiatal hernia. D/ / Nura Rocha MD / Nura Rocha MD Interpreting Provider: Nura Rocha MD X-Ray 09/07/17 15:05 IMPRESSION: Moderate to large stool burden within the colon and rectum. D/ / 09/07/2017 15:53:19 Wyatt Del Rio MD / anil Interpreting Provider: Wyatt Del Rio MD Abdomen/Pelvis CT 09/07/17 18:30 IMPRESSION: Acute colitis of the distal descending colon and sigmoid colon, with trace pelvic free fluid. D/ / Rory Merino MD / Rory Merino MD Interpreting Provider: Rory Merino MD Chest CT 09/07/17 18:30 IMPRESSION: Large hiatal hernia. D/ / Rory Merino MD / Rory Merino MD Interpreting Provider: Rory Merino MD Active Medications Acetaminophen (Tylenol) 650 mg PO Q6HR PRN PRN Reason: Mild Pain/Fever Stop: 03/06/18 15:56 Last Admin: 09/08/17 18:44 Dose: 650 mg Albuterol/Ipratropium (Duoneb) 3 ml IH [id number] [facility] Stop: 03/06/18 22:01 Last Admin: 09/09/17 10:30 Dose: 3 ml Atorvastatin Calcium (Lipitor) 40 mg PO QPM [facility] Stop: 03/06/18 18:01 Last Admin: 09/08/17 16:55 Dose: 40 mg Docusate Sodium (Colace) 200 mg PO DAILY [facility] PRN Reason: Protocol Stop: 03/11/18 09:01 Last Admin: 09/09/17 09:01 Dose: 200 mg Duloxetine HCl (Cymbalta) 30 mg PO BID [facility] Stop: 03/06/18 21:01 Last Admin: 09/09/17 09:01 Dose: 30 mg Furosemide (Lasix) 40 mg PO DAILY [facility] Stop: 03/09/18 15:16 Last Admin: 09/09/17 09:01 Dose: 40 mg Gabapentin (Neurontin) 600 mg PO BID [facility] Stop: 03/08/18 21:01 Last Admin: 09/09/17 09:01 Dose: 600 mg Guaifenesin (Mucinex) 600 mg PO BID [facility] Stop: 03/06/18 21:01 Last Admin: 09/09/17 09:01 Dose: 600 mg Ciprofloxacin Lactate (Cipro Premix 400 Mg/200 Ml) 400 mg in 200 mls @ 200 mls/ hr IVPB Q12HR [facility] Stop: 03/10/18 06:01 Last Admin: 09/09/17 05:38 Dose: 200 mls/hr Metronidazole (Flagyl Premix 500 Mg/100 Ml) 500 mg in 100 mls @ 100 mls/hr IVPB Q8HR [facility] Stop: 03/10/18 00:01 Last Admin: 09/09/17 09:01 Dose: 100 mls/hr Metoprolol Tartrate (Lopressor) 100 mg PO BID [facility] Stop: 03/11/18 21:01 Mirtazapine (Remeron) 7.5 mg PO DAILY PRN PRN Reason: APPETITE STIMULANT Multivitamins/Calcium (Thera M Plus) 1 tab PO DAILY [facility] Stop: 03/07/18 09:01 Last Admin: 09/09/17 09:01 Dose: 1 tab Naloxone HCl (Narcan) 0.4 mg IVP Q2MIN PRN PRN Reason: SEE COMMENTS Stop: 03/06/18 15:56 Omeprazole (Prilosec) 20 mg PO DAILY [facility] Stop: 03/06/18 16:16 Last Admin: 09/09/17 09:01 Dose: 20 mg Potassium Chloride (Potassium Chloride) 20 meq PO DAILY [facility] Stop: 03/07/18 09:01 Last Admin: 09/09/17 09:01 Dose: 20 meq Vitamin D (Vitamin D) 1,000 unit PO DAILY [facility] Stop: 03/07/18 09:01 Last Admin: 09/09/17 09:01 Dose: 1,000 unit Warfarin Sodium (Coumadin Perpt) 1 each PO DAILY@1800 PRN PRN Reason: SEE COMMENTS Stop: 03/06/18 18:01 Warfarin Sodium (Coumadin) 7.5 mg PO 1800 ONE Stop: 09/09/17 18:01 - Imaging and Cardiology Chest Xray: report reviewed Echo: report reviewed - EKG Interpretation EKG results cardiology: other (Telemetry review for the past 12 hours showed average heart rate 100, sinus tachycardia. Currently sinus tachycardia in the low 100s, with occasional PVCs.) - VTE Documentation of Mechanical Device: Graduated compression elastic hosiery Consult Discharge Plan - Plan Referrals: Jonathan Osman MD [Primary Care Provider] - 09/22/17 2:00 pm Prescriptions: Metoprolol [Lopressor] 100 mg PO BID #60 tablet
[2017-09-09] MEDS ORDERED: *HR* Warfarin 7.5 MG TABLET PO ONE (18:00)
== END 2017-09-09 18:40 | disposition home or self-care (01) | DRG 309 ==
LOC: EMEROO 11:13 → 3BNU 11:13
PROVIDERS: ADMIT Internal Medicine; ATTEND Registered Nurse

== ENCOUNTER 2017-10-27 07:31 | Inpatient (IN) ==
[2017-10-27] MEDS ORDERED: 0.9 % Sodium Chloride 1,000 ML IVC SCH (08:00)
[2017-10-27] MEDS ORDERED: Heparin 1,000 UNITS/500 mL 500 ML ONE ×2 (08:03→11:33)
[2017-10-27 08:42] LABS: INR 3.5; Prothrombin Time 38.5 Seconds (9.4-12.1)
[2017-10-27] MEDS ORDERED: *HR* Midazolam HCl 5 MG/5 ML VIAL IVP ONE ×2 (09:27→11:49)
[2017-10-27] MEDS ORDERED: *HR* FentaNYL (PF) 100 MCG/2 ML VIAL ONE ×2 (09:27→11:49)
[2017-10-27] MEDS ORDERED: D5% in Water 250 ML ONE (10:39)
[2017-10-27] MEDS ORDERED: Isoproterenol HCl 1 MG/5 ML AMPUL ONE (10:39)
--- NOTE | 2017-10-27 12:34 | History & Physical Report ---
Date of Encounter: 10/27/17 Time of Encounter: 12:30 24 Hour HP Update - Instructions Instructions: If the History and Physical is less than 30 days old and was completed prior to A.M. admission and or procedure and has NOT been updated on calendar day of procedure please complete this update prior to performing procedure. - Update Patient reports changes in Medical Condition: No Changes in examination, assessment, or condition: No Changes in Medication: No Preop tests/diagnostics Reviewed: Yes Surgery Remains Indicated: Yes Consent for Planned Operative Procedure(s) Verified: Yes - Pre-Operative Checklist Preoperative Checklist Indicated: No Prophylactic Antibiotic Ordered: No
--- NOTE | 2017-10-27 12:35 | Pre-Sedation Evaluation ---
Pre-sedation evaluation - Pre-sedation checklist Date of procedure: 10/27/17 Procedure: EP STUDY Recent Vitals: Last Vital Signs Temp 97.4 F L 10/27/17 08:26 Pulse 74 10/27/17 08:26 Resp 18 10/27/17 08:26 BP 142/84 10/27/17 08:26 Pulse Ox 93 10/27/17 08:26 H&P (including ROS) documented in medical record: Yes Previous reaction to sedatives/anesthetics: No Dietary Status: NPO after Midnight Airway Assessment: Patient can open mouth completely, TMJ function normal, Micrognathia (under-bite, receding chin) absent Dentition: dentures removed Possible difficult airway: No ASA Classification *see protocol: CLASS II-Mild systemic disease Plan of Care: Pt appropriate candidate for procedure/moderate/conscious sedation , Risks/benefits of procedure/sedation discussed w/ patient/family
[2017-10-27] MEDS ORDERED: Naloxone 0.4 MG/ML INJ IVP PRN (12:39)
[2017-10-27] MEDS ORDERED: Mirtazapine 15 MG TABLET PO PRN (12:43)
[2017-10-27] MEDS ORDERED: *HR* Warfarin 5 MG TABLET PO SCH (12:45)
--- NOTE | 2017-10-27 17:05 | Electrocardiograph Report ---
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
--- NOTE | 2017-10-27 17:12 | Electrocardiograph Report ---
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
[2017-10-27] MEDS: Metoprolol 100 MG TABLET PO SCH (21:31)
[2017-10-28] MEDS: Gabapentin 300 MG CAPSULE PO PRN ×2 (02:48→16:06)
[2017-10-28 05:40] LABS: BUN/Creatinine Ratio 24 (6-26); Blood Urea Nitrogen 18 mg/dL (8-23); Calcium 9.6 mg/dL (8.6-10.3); Carbon Dioxide 29 mEq/L (23-29); Chloride 104 mEq/L (98-107); Glucose 140 mg/dL (70-105); Osmolality,Calculated 294 (280-300); Potassium 3.7 mEq/L (3.5-5.1); Sodium 140 mEq/L (136-145); eGFR For African Americans > 60 (> 60); eGFR For Non-African Americans > 60 (> 60)
--- NOTE | 2017-10-28 08:18 | Electrophysiology ProgressNote ---
Date of Encounter: 10/28/17 Time of Encounter: 08:15 Assessment and Plan (1) Atrial fibrillation Current Visit: No Status: Chronic Per EP: Admitted for Tikosyn-- on 0.25mg PO BID. patient discussed and reviewed with Dr. Fernie Cruz, status post SVT ablation with DC cardioversion for A. fib. Patient directly admitted for initiation of antiarrhythmic therapy. Status post 1 dose of Tikosyn 0.25mg-- ECG reviewed and discussed with Dr. Fernie Cruz. Kidney function stable this morning. Will remain on current dosing regimen per Dr. Fernie Cruz. Currently intermittently atrial pacing and ventricular pacing. Remains on beta odell. Regarding long-term anticoagulation, takes Coumadin at home. INR yesterday 3.5. Discussed with Dr. Cruz, we will resume anticoagulation. Pharmacy to dose. Target INR 2.0-3.0. Qualifiers: Atrial fibrillation type: paroxysmal Qualified Code(s): I48.0 - Paroxysmal atrial fibrillation (2) SOB (shortness of breath) Current Visit: No Status: Acute Per EP: Patient with apparent chronic diastolic CHF. Patient with acute short of breath overnight with suspected acute CHF exacerbation. IV fluid log reviewed and appears patient received about 600 mL of fluid during and post procedure. Chest x-ray shows worsening CHF. Takes Lasix 40 mg by mouth daily at home. We will proceed with IV Lasix 40 mg 1 now. We will continue to monitor and reevaluate. Discussed and reviewed with Dr. Shine as well. Discussion w patient/family: The assessment and plan as outlined above was discussed with the patient and/or family members who expressed understanding and agreement. All questions were answered. Thank you for involving us in the care of your patient. Please call with any questions. Subjective Principal diagnosis: Afib Interval history: Patient seen with family at bedside. Reports overall increase in short of breath at rest during the night. She reports complaint of headache. Complete of nausea as well. She denies any chest pain or palpitations. Denies any concerns from her bilateral groin sites. Objective Vital Signs, Last 4 Hours Temp Pulse Resp BP Pulse Ox 10/28/17 07:28 97.4 F L 65 18 176/87 92 10/28/17 05:00 98.2 F 79 18 164/81 92 General: Conversant, No Apparent Distress HEENT: Atraumatic, Normocephaly, Mucus Membranes Moist Neck: No JVD, Normal carotid pulses Cardiac: Reg Rate and Rhythm, Normal S1 and S2, No Murmur Lungs: Normal Breath Sounds, Other (Conversational dyspnea noted, short of breath at rest, Rales noted at the bilateral bases, requiring nasal cannula O2 4 L-- does not utilize oxygen at home) Neuro: Alert and responsive, No focal deficits noted Abdomen: Soft, Non-Tender Skin: No rashes noted on visualized skin, Other (Bilateral groin sites dry and intact, no hematoma, no bleeding, no ecchymosis) Musculoskeletal: No Chest Wall Tenderness Extremities: No Clubbing, No Cyanosis, No Edema, Normal Pulses Results 10/28/17 04:45 Lab Results Laboratory Tests 09/26/15 09/04/17 09/04/17 04:01 11:38 11:38 Hgb Hct INR 1.6 Creatinine Est GFR (Non-Af Amer) Magnesium Troponin I < 0.03 B-Natriuretic Peptide LDL Cholesterol, Calc TSH 4.089 09/04/17 09/05/17 10/13/17 17:13 05:22 08:51 Hgb 14.4 Hct 45.9 H INR Creatinine Est GFR (Non-Af Amer) Magnesium 2.0 Troponin I B-Natriuretic Peptide 97 LDL Cholesterol, Calc 78 TSH 10/27/17 10/28/17 08:20 04:45 Hgb Hct INR 3.5 Creatinine 0.76 Est GFR (Non-Af Amer) > 60 Magnesium Troponin I B-Natriuretic Peptide LDL Cholesterol, Calc TSH - Imaging and Cardiology Chest Xray: report reviewed - EKG Interpretation EKG results cardiology: other (Telemetry reviewed with average heart rate past 12 hours 69, currently V pacing in the 70s to 80s.) - VTE Reasons for not Prescribing Prophylaxis: Not indicated-Anticoagulated or INR therapeutic Consult Discharge Plan - Plan Referrals: Jonathan Osman MD [Primary Care Provider] -
[2017-10-28] MEDS: Cholecalciferol (D-3) 1,000 UNIT TABLET PO SCH (08:29)
[2017-10-28] MEDS: amLODIPine 5 MG TABLET PO SCH (08:29)
[2017-10-28] MEDS: Furosemide 40 MG TABLET PO SCH (08:29)
[2017-10-28] MEDS: Multivit/Ca/Min/Fe/FA 1 TAB TABLET PO SCH (08:29)
[2017-10-28] MEDS ORDERED: Furosemide 40 MG/4 ML VIAL IVP ONE (09:41)
[2017-10-28] MEDS: Acetaminophen 325 MG TABLET PO PRN (09:58)
[2017-10-28] MEDS: Metoprolol 100 MG TABLET PO SCH ×2 (09:59→21:25)
[2017-10-28] MEDS ORDERED: *HR* Warfarin 7.5 MG TABLET PO SCH (12:43)
[2017-10-28 13:07] LABS: INR 3.4; Prothrombin Time 37.4 Seconds (9.4-12.1)
[2017-10-28] MEDS ORDERED: Furosemide 20 MG/2 ML VIAL IVP ONE (15:29)
--- NOTE | 2017-10-28 15:33 | Event Note ---
Date of Encounter: 10/28/17 Time of Encounter: 15:30 - Cardiology Event Note Patient reevaluated. Systolic blood pressure improved to the 140s. Headache and nausea resolved. Shortness of breath has somewhat improved and nasal cannula oxygen down to 3L, continues to have rales to bases. We will give Lasix 20 mg IV 1 now. Check BMP in am. Will place on strict I&O, daily weights , 1.5 L fluid restriction. Will need to re-evaluate Tikosyn dosing and if will require further diuresis.
[2017-10-28] MEDS ORDERED: Warfarin perPT PO PRN (18:00)
[2017-10-29 05:12] LABS: INR 2.9; Prothrombin Time 31.7 Seconds (9.4-12.1)
[2017-10-29] MEDS: Acetaminophen 325 MG TABLET PO PRN (05:16)
[2017-10-29 05:21] LABS: BUN/Creatinine Ratio 21 (6-26); Blood Urea Nitrogen 12 mg/dL (8-23); Calcium 9.8 mg/dL (8.6-10.3); Carbon Dioxide 31 mEq/L (23-29); Chloride 100 mEq/L (98-107); Glucose 159 mg/dL (70-105); Osmolality,Calculated 289 (280-300); Potassium 3.3 mEq/L (3.5-5.1); Sodium 138 mEq/L (136-145); eGFR For African Americans > 60 (> 60); eGFR For Non-African Americans > 60 (> 60)
[2017-10-29] MEDS: Furosemide 40 MG TABLET PO SCH (09:13)
[2017-10-29] MEDS: amLODIPine 5 MG TABLET PO SCH (09:13)
[2017-10-29] MEDS: Multivit/Ca/Min/Fe/FA 1 TAB TABLET PO SCH (09:13)
[2017-10-29] MEDS: Cholecalciferol (D-3) 1,000 UNIT TABLET PO SCH (09:13)
[2017-10-29] MEDS: Metoprolol 100 MG TABLET PO SCH ×2 (09:14→20:49)
--- NOTE | 2017-10-29 10:31 | Cardiology Progress Note ---
Date of Encounter: 10/29/17 Time of Encounter: 10:27 Assessment and Plan (1) Atrial fibrillation Current Visit: No Status: Chronic Per Cardiology: Admitted for Tikosyn-- on 0.25mg PO BID. Patient discussed and reviewed with Dr. Fernie Cruz, status post SVT ablation with DC cardioversion for A. fib. Patient directly admitted for initiation of antiarrhythmic therapy. Status post 4 doses of Tikosyn 0.25mg-- ECG reviewed and discussed with Dr. Shine. QTc stable. Kidney function stable this morning, but K 3.3--will replace. Will remain on current dosing regimen. Currently intermittently atrial pacing and ventricular pacing. Remains on beta odell. Regarding long-term anticoagulation, takes Coumadin at home. INR 2.9. Target INR 2.0-3.0. Qualifiers: Atrial fibrillation type: paroxysmal Qualified Code(s): I48.0 - Paroxysmal atrial fibrillation (2) SOB (shortness of breath) Current Visit: No Status: Acute Per Cardiology: Patient with apparent chronic diastolic CHF. TTE 09/04/17 EF preserved. Patient with acute shortness of breath overnight 10/27 with suspected acute CHF exacerbation. IV fluid log reviewed and appears patient received about 600 mL of fluid during and post procedure. Chest x-ray yesterday showed worsening CHF. Takes Lasix 40 mg by mouth daily at home. Was given a total of 60mg IV lasix yesterday in addition to 40mg PO. Pt reports feeling much better today, dyspnea much improved. She remains on O2 NC, which she was not on at home. Attempt to wean off O2. Re-evaluate this afternoon to see if further doses of IV lasix are warranted. K 3.3--replacing. Discussion w patient/family: The assessment and plan as outlined above was discussed with the patient and/or family members who expressed understanding and agreement. All questions were answered. Thank you for involving us in the care of your patient. Please call with any questions. I will discuss all the above with Dr. Shine and make changes as necessary. Subjective Principal diagnosis: Afib Interval history: Received 60mg IV Lasix yesterday and 40mg PO for acute diastolic CHF exacerbation. Reports dyspnea has improved today and she is feeling better. S/P 4 doses of Tikosyn--QTc remains stable. Objective Vital Signs, Last 4 Hours Temp Pulse Resp BP Pulse Ox 10/29/17 06:35 97.8 F 63 18 140/64 95 Vital Signs Temp Pulse Resp BP Pulse Ox 10/29/17 06:35 97.8 F 63 18 140/64 95 10/29/17 04:57 97.3 F L 63 20 166/92 94 10/28/17 23:34 98.5 F 61 18 158/76 91 10/28/17 22:00 97.5 F L 70 16 160/89 93 10/28/17 19:47 94 10/28/17 15:59 97.6 F 75 24 155/68 94 10/28/17 11:12 97.4 F L 83 23 144/90 92 Intake and Output 10/28/17 10/29/17 10/29/17 23:59 07:59 15:59 Intake Total 50 / 50 0 / 0 120 / 120 Output Total 200 / 200 0 / 0 Balance -150 / -150 0 / 0 120 / 120 Intake: Oral 50 / 50 0 / 0 120 / 120 Output: Urine 200 / 200 0 / 0 Other: Meal Dinner Breakfast Percent of Meal Consumed 0% 50% # Voids 0 0 Weight 78.6 kg Patient Weight 10/29/17 23:59 Weight 78.6 kg General: Conversant, No Apparent Distress HEENT: Atraumatic, Normocephaly, Mucus Membranes Moist Neck: No JVD, Normal carotid pulses Cardiac: Reg Rate and Rhythm, Normal S1 and S2, No Murmur Lungs: Normal Breath Sounds, No Wheeze, Rales, Rhonchi Neuro: Alert and responsive, No focal deficits noted Abdomen: Soft, Non-Tender Skin: No rashes noted on visualized skin Musculoskeletal: No Chest Wall Tenderness Extremities: No Clubbing, No Cyanosis, No Edema, Normal Pulses Results 10/29/17 04:28 Lab Results 10/28/17 10/29/17 10/29/17 12:42 04:28 04:28 INR 3.4 2.9 Sodium 138 Potassium 3.3 L Chloride 100 Carbon Dioxide 31 H BUN 12 Creatinine 0.58 L Glucose 159 H Calcium 9.8 Active Medications Acetaminophen (Tylenol) 650 mg PO Q6HR PRN PRN Reason: Pain Stop: 04/29/18 09:44 Last Admin: 10/29/17 05:16 Dose: 650 mg Amlodipine Besylate (Norvasc) 10 mg PO DAILY [facility] Stop: 04/29/18 09:01 Last Admin: 10/29/17 09:13 Dose: 10 mg Atorvastatin Calcium (Lipitor) 40 mg PO QPM [facility] Stop: 04/28/18 18:01 Last Admin: 10/28/17 16:05 Dose: 40 mg Dofetilide (Tikosyn) 0.25 mg PO BID [facility] Stop: 04/28/18 21:01 Last Admin: 10/29/17 09:14 Dose: 0.25 mg Duloxetine HCl (Cymbalta) 30 mg PO BID [facility] Stop: 04/28/18 21:01 Last Admin: 10/29/17 09:13 Dose: 30 mg Furosemide (Lasix) 40 mg PO DAILY [facility] Stop: 04/29/18 09:01 Last Admin: 10/29/17 09:13 Dose: 40 mg Gabapentin (Neurontin) 600 mg PO TID PRN PRN Reason: Muscle Pain Last Admin: 10/28/17 16:06 Dose: 600 mg Guaifenesin (Mucinex) 600 mg PO DAILY PRN PRN Reason: Congestion Stop: 04/28/18 12:44 Metoprolol Tartrate (Lopressor) 100 mg PO BID [facility] Stop: 04/28/18 21:01 Last Admin: 10/29/17 09:14 Dose: 100 mg Mirtazapine (Remeron) 7.5 mg PO DAILY PRN PRN Reason: APPETITE STIMULANT Multivitamins/Calcium (Thera M Plus) 1 tab PO DAILY [facility] Stop: 04/29/18 09:01 Last Admin: 10/29/17 09:13 Dose: 1 tab Naloxone HCl (Narcan) 0.4 mg IVP Q2MIN PRN PRN Reason: SEE COMMENTS Stop: 04/28/18 12:40 Vitamin D (Vitamin D) 1,000 unit PO DAILY [facility] Stop: 04/29/18 09:01 Last Admin: 10/29/17 09:13 Dose: 1,000 unit Warfarin Sodium (Coumadin Perpt) 1 each PO DAILY@1800 PRN PRN Reason: SEE COMMENTS Stop: 04/29/18 18:01 - EKG Interpretation EKG results cardiology: personally reviewed, other (12 hr tele AVG HR 64, intermittently paced) - VTE Reasons for not Prescribing Prophylaxis: Not indicated-Anticoagulated or INR therapeutic Consult Discharge Plan - Plan Referrals: Jonathan Osman MD [Primary Care Provider] -
[2017-10-29] MEDS: Gabapentin 300 MG CAPSULE PO PRN (16:33)
[2017-10-29] MEDS ORDERED: *HR* Warfarin 5 MG TABLET PO ONE (18:00)
[2017-10-30 05:17] LABS: INR 1.9
[2017-10-30 05:29] LABS: BUN/Creatinine Ratio 22 (6-26); Blood Urea Nitrogen 14 mg/dL (8-23); Calcium 9.8 mg/dL (8.6-10.3); Carbon Dioxide 28 mEq/L (23-29); Chloride 101 mEq/L (98-107); Glucose 150 mg/dL (70-105); Osmolality,Calculated 289 (280-300); Potassium 3.8 mEq/L (3.5-5.1); Sodium 138 mEq/L (136-145); eGFR For African Americans > 60 (> 60); eGFR For Non-African Americans > 60 (> 60)
[2017-10-30] MEDS: Metoprolol 100 MG TABLET PO SCH ×2 (08:45→21:27)
[2017-10-30] MEDS: Furosemide 40 MG TABLET PO SCH (08:45)
[2017-10-30] MEDS: Acetaminophen 325 MG TABLET PO PRN (08:46)
[2017-10-30] MEDS: Cholecalciferol (D-3) 1,000 UNIT TABLET PO SCH (08:46)
[2017-10-30] MEDS: amLODIPine 5 MG TABLET PO SCH (08:46)
[2017-10-30] MEDS: Multivit/Ca/Min/Fe/FA 1 TAB TABLET PO SCH (08:52)
--- NOTE | 2017-10-30 11:46 | Electrophysiology ProgressNote ---
Date of Encounter: 10/30/17 Time of Encounter: 11:00 Assessment and Plan (1) Atrial fibrillation Current Visit: No Status: Chronic Per Cardiology: S/p SVT ablation with DC cardioversion for A. fib. Patient directly admitted for initiation of antiarrhythmic therapy. S/p 6 doses of Tikosyn 0.25mg. QTc stable. Kidney function stable this morning; K+ improved. Will remain on current dosing regimen. Currently intermittently atrial pacing and ventricular pacing. Remains on beta odell. Regarding long-term anticoagulation, takes Coumadin at home. INR 1.9. Target INR 2.0-3.0. Qualifiers: Atrial fibrillation type: paroxysmal Qualified Code(s): I48.0 - Paroxysmal atrial fibrillation (2) SOB (shortness of breath) Current Visit: No Status: Acute Per Cardiology: Patient with apparent chronic diastolic CHF. TTE 09/04/17: Impressions: LVEF 55%. Normal LV chamber size, wall thickness and function. Indeterminate diastolic function. Normal right ventricular structure and function. No evidence of pulmonary hypertension. No significant valvular dysfunction. Previous mitral regurgitation not visualized on this study. A device lead was visualized in the right atrium and right ventricle. Left Ventricular Wall Motion: Rest Echo Findings All wall segments showed normal motion. Patient with acute shortness of breath overnight 10/27 with suspected acute CHF exacerbation. IV fluid log reviewed and appears patient received about 600 mL of fluid during and post procedure. Chest x-ray showed worsening CHF. On Lasix 40 mg by mouth daily at home. Was given a total of 60mg IV lasix 08/30 in addition to 40mg PO. Dyspnea improved, however remains on O2 NC 3L with sat 90% , which she was not on at home. Will give IV Lasix 40mg BID (Net I&O only -420ml ). Will check echo, discussed with Dr. Villalta and will check full echo. Can consider CT if needed. DC postponed today. Discussion w patient/family: The assessment and plan as outlined above was discussed with the patient and/or family members who expressed understanding and agreement. All questions were answered. Thank you for involving us in the care of your patient. Please call with any questions. Subjective Principal diagnosis: Afib, CHF/SOB Interval history: Patient seen with family at bedside. Reports slight improvement in shortness of breath, however remains worse than baseline. Patient confirms does not utilize oxygen at home. Denies any history of COPD or smoking. Denies any fever , chills, nausea, vomiting, diarrhea, or cough. Objective Vital Signs, Last 4 Hours Temp Pulse Resp BP Pulse Ox 10/30/17 11:14 97.7 F 63 15 145/81 94 General: Conversant, No Apparent Distress HEENT: Atraumatic, Normocephaly Cardiac: Reg Rate and Rhythm, Normal S1 and S2, No Murmur Lungs: Other (Mild conversational dyspnea noted, Rales noted to right lower lobe ) Neuro: Alert and responsive, No focal deficits noted Skin: No rashes noted on visualized skin Extremities: No Edema Results 10/30/17 04:13 Lab Results Laboratory Tests 10/30/17 10/30/17 04:13 04:13 INR 1.9 Potassium 3.8 Creatinine 0.63 Est GFR (Non-Af Amer) > 60 ITS Impressions Chest X-Ray 10/28/17 05:13 IMPRESSION: Features of worsening heart failure, including new moderate interstitial edema and small right effusion. D/ / Broderick Morocho / Broderick Morocho Interpreting Provider: Broderick Morocho Active Medications Acetaminophen (Tylenol) 650 mg PO Q6HR PRN PRN Reason: Pain Stop: 04/29/18 09:44 Last Admin: 10/30/17 08:46 Dose: 650 mg Amlodipine Besylate (Norvasc) 10 mg PO DAILY [facility] Stop: 04/29/18 09:01 Last Admin: 10/30/17 08:46 Dose: 10 mg Atorvastatin Calcium (Lipitor) 40 mg PO QPM [facility] Stop: 04/28/18 18:01 Last Admin: 10/29/17 16:33 Dose: 40 mg Dofetilide (Tikosyn) 0.25 mg PO BID [facility] Stop: 04/28/18 21:01 Last Admin: 10/30/17 08:46 Dose: 0.25 mg Duloxetine HCl (Cymbalta) 30 mg PO BID [facility] Stop: 04/28/18 21:01 Last Admin: 10/30/17 08:45 Dose: 30 mg Furosemide (Lasix) 40 mg PO DAILY [facility] Stop: 04/29/18 09:01 Last Admin: 10/30/17 08:45 Dose: 40 mg Gabapentin (Neurontin) 600 mg PO TID PRN PRN Reason: Muscle Pain Last Admin: 10/29/17 16:33 Dose: 600 mg Guaifenesin (Mucinex) 600 mg PO DAILY PRN PRN Reason: Congestion Stop: 04/28/18 12:44 Last Admin: 10/30/17 08:45 Dose: 600 mg Metoprolol Tartrate (Lopressor) 100 mg PO BID [facility] Stop: 04/28/18 21:01 Last Admin: 10/30/17 08:45 Dose: 100 mg Mirtazapine (Remeron) 7.5 mg PO DAILY PRN PRN Reason: APPETITE STIMULANT Multivitamins/Calcium (Thera M Plus) 1 tab PO DAILY [facility] Stop: 04/29/18 09:01 Last Admin: 10/30/17 08:52 Dose: 1 tab Naloxone HCl (Narcan) 0.4 mg IVP Q2MIN PRN PRN Reason: SEE COMMENTS Stop: 04/28/18 12:40 Vitamin D (Vitamin D) 1,000 unit PO DAILY [facility] Stop: 04/29/18 09:01 Last Admin: 10/30/17 08:46 Dose: 1,000 unit Warfarin Sodium (Coumadin Perpt) 1 each PO DAILY@1800 PRN PRN Reason: SEE COMMENTS Stop: 04/29/18 18:01 - VTE Reasons for not Prescribing Prophylaxis: Not indicated-Anticoagulated or INR therapeutic Consult Discharge Plan - Plan Referrals: Jonathan Osman MD [Primary Care Provider] -
[2017-10-30] MEDS: Furosemide 40 MG/4 ML VIAL IVP SCH ×2 (17:01→21:31)
[2017-10-30] MEDS ORDERED: *HR* Warfarin 7.5 MG TABLET PO ONE (18:00)
[2017-10-31 05:31] LABS: INR 1.7
[2017-10-31 05:43] LABS: BUN/Creatinine Ratio 28 (6-26); Blood Urea Nitrogen 18 mg/dL (8-23); Calcium 9.6 mg/dL (8.6-10.3); Carbon Dioxide 30 mEq/L (23-29); Chloride 103 mEq/L (98-107); Glucose 142 mg/dL (70-105); Osmolality,Calculated 296 (280-300); Potassium 3.3 mEq/L (3.5-5.1); Sodium 141 mEq/L (136-145); eGFR For African Americans > 60 (> 60); eGFR For Non-African Americans > 60 (> 60)
[2017-10-31] MEDS: Multivit/Ca/Min/Fe/FA 1 TAB TABLET PO SCH (08:40)
[2017-10-31] MEDS: Metoprolol 100 MG TABLET PO SCH ×2 (08:40→21:03)
[2017-10-31] MEDS: amLODIPine 5 MG TABLET PO SCH (08:40)
[2017-10-31] MEDS: Furosemide 40 MG/4 ML VIAL IVP SCH ×2 (08:40→21:02)
[2017-10-31] MEDS: Cholecalciferol (D-3) 1,000 UNIT TABLET PO SCH (08:40)
[2017-10-31] MEDS: Gabapentin 300 MG CAPSULE PO PRN (11:01)
[2017-10-31] MEDS ORDERED: Furosemide 40 MG/4 ML VIAL IVP ONE (14:26)
--- NOTE | 2017-10-31 14:31 | Electrophysiology ProgressNote ---
Date of Encounter: 10/31/17 Time of Encounter: 14:30 Assessment and Plan (1) Atrial fibrillation Current Visit: No Status: Chronic Per Cardiology: S/p SVT ablation with DC cardioversion for A. fib. Patient directly admitted for initiation of antiarrhythmic therapy. Now Tikosyn loaded on 0.25mg. QTc stable. Kidney function stable. Will remain on current dosing regimen. Currently intermittently atrial pacing and ventricular pacing. Remains on beta odell. Regarding long-term anticoagulation, takes Coumadin at home. Target INR 2.0-3.0. Qualifiers: Atrial fibrillation type: paroxysmal Qualified Code(s): I48.0 - Paroxysmal atrial fibrillation (2) SOB (shortness of breath) Current Visit: No Status: Acute Per Cardiology: Patient with apparent chronic diastolic CHF. TTE 09/04/17: Impressions: LVEF 55%. Normal LV chamber size, wall thickness and function. Indeterminate diastolic function. Normal right ventricular structure and function. No evidence of pulmonary hypertension. No significant valvular dysfunction. Previous mitral regurgitation not visualized on this study. A device lead was visualized in the right atrium and right ventricle. Left Ventricular Wall Motion: Rest Echo Findings All wall segments showed normal motion. Patient with acute shortness of breath overnight 10/27 with suspected acute CHF exacerbation. IV fluid log reviewed and appears patient received about 600 mL of fluid during and post procedure. Chest x-ray showed worsening CHF. On Lasix 40 mg by mouth daily at home. Now on IV Lasix 40 mg twice a day. Net I& O = -610ml. Clinically appears improving, however does not appear back to baseline and still desaturating to 87% on room air. Home O2 assessment completed and 87% with ambulation. Current cho reviewed and shows: Impressions: LVEF 60%. Normal LV chamber size, wall thickness and function. Indeterminate diastolic function. Normal right ventricular structure and function. Mild-moderate mitral regurgitation. Mild tricuspid regurgitation. Severe pulmonary hypertension. A device lead was visualized in the right atrium and right ventricle. Left Ventricular Wall Motion: Rest Echo Findings All wall segments showed normal motion. We will consult social work and PT for assessment and recommendations regarding discharge planning. Daughter still has concerns of shortness of breath and reported intermittent confusion at nighttime. We will give extra dose of Lasix 40 mg IV 1 now and continue to diurese. We will start potassium supplement. Systolic blood pressures remain slightly elevated, will add low dose JULIO CÉSAR inhibitor. Continue to monitor kidney function closely. Will discuss with Dr. Cruz repeat chest x-ray versus possible CT versus hospitalist/pulmonology consult. Suspect shortness of breath and hypoxia will improve with continued diuresis. Discussion w patient/family: The assessment and plan as outlined above was discussed with the patient and/or family members who expressed understanding and agreement. All questions were answered. Thank you for involving us in the care of your patient. Please call with any questions. Subjective Principal diagnosis: Afib, CHF/SOB Interval history: Patient seen multiple times today. Currently saturating 87% on room air. Denies any chest pain or palpitations. She reports soreness of breath has improved. Objective Vital Signs, Last 4 Hours Pulse Ox 10/31/17 14:24 89 General: Conversant, No Apparent Distress HEENT: Atraumatic, Normocephaly, Mucus Membranes Moist Neck: No JVD, Normal carotid pulses Cardiac: Reg Rate and Rhythm, Normal S1 and S2, No Murmur Lungs: Normal Breath Sounds, Other (Shortness of breath at rest improved, rales to right lower lobe improving) Neuro: Alert and responsive, No focal deficits noted Abdomen: Soft, Non-Tender Skin: No rashes noted on visualized skin Musculoskeletal: No Chest Wall Tenderness Extremities: No Clubbing, No Cyanosis, No Edema, Normal Pulses Results 10/31/17 04:22 Lab Results 10/31/17 10/31/17 04:22 04:22 INR 1.7 Sodium 141 Potassium 3.3 L Chloride 103 Carbon Dioxide 30 H BUN 18 Creatinine 0.65 Glucose 142 H Calcium 9.6 - Imaging and Cardiology Chest Xray: report reviewed Echo: report reviewed - EKG Interpretation EKG results cardiology: personally reviewed, other (No events noted on telemetry ) - VTE Reasons for not Prescribing Prophylaxis: Not indicated-Anticoagulated or INR therapeutic Consult Discharge Plan - Plan Referrals: Jonathan Osman MD [Primary Care Provider] -
--- NOTE | 2017-10-31 16:00 | Event Note ---
Date of Encounter: 10/31/17 Time of Encounter: 16:00 - Cardiology Event Note Patient noted to have oxygen desaturation reportedly to 87% with ambulation on room air. Home O2 order completed, however hopefully with continued diuresis will not require oxygen at discharge. Discussed and reviewed with Dr. Fernie Cruz, will continue diuresis and monitor. Consider pulmonology consult if needed. I had lengthy discussion with patient and daughter whom agrees with plan. Daughter expresses concern of increased evening confusion. Again, I suspect this is related to hypoxia as patient desaturates with sleeping. Patient denies any painful urination, however will check UA and CBC. Social work and PT consult placed for discharge evaluation and recommendations.
[2017-10-31 16:38] LABS: Basophils # 0.1 K/mcL (0.0-0.2); Basophils % 0.6 %; Eosinophils # 0.1 K/mcL (0.0-0.6); Eosinophils % 1.3 %; Hematocrit 40.8 % (35.3-44.9); Hemoglobin 13.7 g/dL (11.5-15.4); Immature Granulocytes % 0.4 % (0-4); Lymphocytes # 1.6 K/mcL (0.6-4.6); Lymphocytes % 15.5 %; Mean Corpuscular HGB Conc 33.6 g/dL (31.6-35.5); Mean Corpuscular Hemoglobin 32.6 pg (28.0-33.3); Mean Corpuscular Volume 97.1 fL (83.0-100.0); Monocytes # 0.9 K/mcL (0.0-1.3); Monocytes % 8.7 %; Neutrophils # 7.5 K/mcL (1.6-8.9); Platelet Count 232 K/mcL (140-400); Segmented Neutrophils % 73.5 %
--- NOTE | 2017-10-31 16:54 | Electrocardiograph Report ---
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
--- NOTE | 2017-10-31 17:24 | Electrocardiograph Report ---
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
--- NOTE | 2017-10-31 17:54 | Electrocardiograph Report ---
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
[2017-10-31] MEDS ORDERED: *HR* Warfarin 5 MG TABLET PO ONE (18:00)
--- NOTE | 2017-10-31 19:02 | Electrocardiograph Report ---
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
--- NOTE | 2017-10-31 19:15 | Electrocardiograph Report ---
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
[2017-11-01 04:28] LABS: INR 2.3; Prothrombin Time 25.7 Seconds (9.4-12.1)
[2017-11-01 04:42] LABS: BUN/Creatinine Ratio 27 (6-26); Blood Urea Nitrogen 22 mg/dL (8-23); Calcium 9.8 mg/dL (8.6-10.3); Carbon Dioxide 31 mEq/L (23-29); Chloride 101 mEq/L (98-107); Glucose 130 mg/dL (70-105); Osmolality,Calculated 295 (280-300); Potassium 3.2 mEq/L (3.5-5.1); Sodium 140 mEq/L (136-145); eGFR For African Americans > 60 (> 60); eGFR For Non-African Americans > 60 (> 60)
[2017-11-01] MEDS: Gabapentin 300 MG CAPSULE PO PRN (09:05)
[2017-11-01] MEDS: Multivit/Ca/Min/Fe/FA 1 TAB TABLET PO SCH (09:06)
[2017-11-01] MEDS: amLODIPine 5 MG TABLET PO SCH (09:06)
[2017-11-01] MEDS: Cholecalciferol (D-3) 1,000 UNIT TABLET PO SCH (09:06)
[2017-11-01] MEDS: Metoprolol 100 MG TABLET PO SCH (09:06)
[2017-11-01] MEDS: Furosemide 40 MG/4 ML VIAL IVP SCH (09:07)
[2017-11-01 11:09] VITALS: BP 119/55
--- NOTE | 2017-11-01 14:42 | Discharge Summary ---
Orders not resulted at time of discharge: Pending orders 10/30/17 13:15 ECG 12 lead ECG [ECG] Stat 10/31/17 06:00 ECG 12 lead ECG [ECG] Stat 10/31/17 15:59 UA w. reflex culture [Urinalysis Reflex Cult & Micro] [URIN] Routine 11/01/17 06:00 EKG [ECG 12 lead ECG] [ECG] AM 0600 11/02/17 04:00 BMP [Basic Metabolic Panel] AM 0400 Prothrombin Time INR [COAG] AM 0400 11/03/17 04:00 Prothrombin Time INR [COAG] AM 0400 Date of Encounter: 11/01/17 Time of Encounter: 14:00 - Discharge Diagnosis (1) Paroxysmal atrial fibrillation Priority: Primary Status: Chronic Comments: Admitted after SVT ablation and DCCV for a.fib. Started on tikosyn. (2) Shortness of breath at rest Priority: Secondary Status: Resolved Comments: Had shortness of breath, now resolved. - Hospital Course Hospital course: Ms. Tavares is a 77 year old female who was admitted after SVT ablation. Patient was noted to have a.fib during procedure and underwent DCCV. Patient was started on tikosyn for anti-arrythmic therapy. QTc remains stable. During hospital patient developed some shortness of breath and was diuresed. Pateint currently net negative 3L. Euvolemic on exam. ECG today shows pateint is in atrial fibrillation. HR controlled. PEr discussion with Dr.Jennifer Cruz, ok for discharge. Patient is currently off O2 and denies shortness of breath. Patient is on coumadin for anticoagulation. Patient is being prepped for discharge home today in stable condition. Patient will follow up with [facility], follow up set. - Time Spent with Patient Total time spent providing and/or coordinating discharge services: Less than 30 minutes - Discharge Medications Prescriptions: Lisinopril [Zestril] 2.5 mg PO DAILY #30 tablet Potassium Chloride 40 meq PO DAILY #30 tab.er.prt Home Medications: Cholecalciferol (Vitamin D3) [Vitamin D3] 5,000 unit PO DAILY 08/03/15 [History] Multivitamin/Iron/Folic Acid [Centrum Complete Multivit Tab] 1 tab PO DAILY [History] Atorvastatin [Lipitor] 40 mg PO QPM 08/18/15 [History] Warfarin [Coumadin] 5 mg PO MO 10/13/15 [History] Warfarin [Coumadin] 7.5 mg PO SUTUWETHFRSA 10/13/15 [History] Mirtazapine 7.5 mg PO DAILY PRN 12/19/15 [History] Furosemide [Lasix] 40 mg PO DAILY #30 tablet 12/22/15 [Rx] Amlodipine Besylate 5 mg PO DAILY 09/04/17 [History] DULoxetine [Cymbalta] 30 mg PO BID 09/04/17 [History] Gabapentin [Neurontin] 600 mg PO TID PRN 09/04/17 [History] Metoprolol [Lopressor] 100 mg PO BID #60 tablet 09/09/17 [Rx] Dofetilide [Tikosyn] 0.25 mg PO BID capsule 11/01/17 [Rx] GuaiFENesin ER [Mucinex] 600 mg PO DAILY PRN tbbp.12hr 11/01/17 [Rx] Lisinopril [Zestril] 2.5 mg PO DAILY #30 tablet 11/01/17 [Rx] Potassium Chloride 40 meq PO DAILY #30 tab.er.prt 11/01/17 [Rx] Allergies/Adverse Reactions: 3 Allergy/AdvReac Type Severity Reaction Status Date / Time Prazosin [From Minipress] Allergy Anaphylaxis Verified 09/04/17 11:20 cephalexin [From Keflex] AdvReac Vomiting Verified 09/04/17 11:20 Date of admission: 10/27/17 13:18 Primary care physician: Jonathan Osman MD Consults: 10/31/17 14:24 Consult to Physical Therapy [CONS] Routine Comment: Evaluate, develop and implement POC Reason for Consult: dc planning Does patient have active BEDREST order?: No Is patient medically & hemodynamically stable?: Yes Consult to District Fire Management Officer [CONS] Routine Reason for SW Consult: dc planning Discharging clinician: Mala South Anticipated date of discharge: 11/01/17 Physical Examination Vital Signs, Last 4 Hours Temp Pulse Resp BP Pulse Ox 11/01/17 11:06 98.5 F 80 14 119/55 91 General: Conversant, No Apparent Distress HEENT: Atraumatic, Normocephaly, Mucus Membranes Moist Neck: No JVD, Normal carotid pulses Cardiac: Normal S1 and S2, No Murmur, Other (Irregularly irregular) Lungs: Normal Breath Sounds, No Wheeze, Rales, Rhonchi Neuro: Alert and responsive, No focal deficits noted Abdomen: Soft, Non-Tender Skin: No rashes noted on visualized skin Musculoskeletal: No Chest Wall Tenderness Extremities: No Clubbing, No Cyanosis, No Edema, Normal Pulses - Patient Status Disposition: Home, Self-Care Condition: Good Functional capacity at discharge: independent ambulation Overall status at discharge: patient is progressing back to baseline - Discharge Instructions Follow Up With: Jonathan Osman MD [Primary Care Provider] - Additional Instructions: ACTIVITY: It is recommended to have someone stay overnight for the first night after the procedure. Avoid strenuous activity, climbing stairs, and no lifting more than 5 pounds (gallon of milk) for 5-7 days to minimize risk of bleeding from procedure site. BATHING/SHOWERING: Sponge bathe only for the first 24 hours. You may shower after 24 hours. Allow water to rinse over site, do not scrub site, and pat dry gently with a towel. No baths, hot tubs, or soaking for 5-7 days. WOUND CARE: Do not remove the bandage over the site for 24 hours. Do not use any antibiotic ointment or Vitamin E on the site. If you have any bleeding or swelling to the groin, please lay flat and hold pressure for 15 minutes. Return to work as instructed per physician Resume driving as instructed per physician Keep all scheduled follow up appointments Resume medications as instructed Contact [facility] ( ) if: You develop excessive bleeding from insertion or wound site not controlled by applying pressure You develop a fever greater than 101 degrees Fahrenheit Your incision becomes reddened at or around the site Your incision develops yellowish or greenish drainage or development of white pimple-like bumps You experience excessive pain You experience muscle switching If you experience chest pain, shortness of breath, dizziness, or extreme tiredness, stop the activity and rest. Please notify [facility] office if you experience any of these symptoms and they are not relieved by rest please call 911! - Diet and Activity Activity: increase activity as tolerated Diet: low fat, low cholesterol, low salt diet - VTE Reasons for not Prescribing Prophylaxis: Not indicated-Anticoagulated or INR therapeutic
--- NOTE | 2017-11-01 15:50 | Electrocardiograph Report ---
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
--- NOTE | 2017-11-01 17:07 | Electrocardiograph Report ---
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
[2017-11-01] MEDS ORDERED: *HR* Warfarin 5 MG TABLET PO ONE (18:00)
--- NOTE | 2017-11-03 10:22 | Electrocardiograph Report ---
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
--- NOTE | 2017-11-03 16:45 | Electrocardiograph Report ---
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
== END 2017-11-01 15:51 | disposition home or self-care (01) | DRG 273 ==
LOC: INVDIALAB 07:31 → 2NENU 13:18
PROVIDERS: ADMIT Internal Medicine Clinical Cardiac Electrophysiology; ATTEND Internal Medicine Clinical Cardiac Electrophysiology

== ENCOUNTER 2018-01-26 11:07 | Observation (INO) ==
[2018-01-26 12:43] LABS: Basophils # 0.1 K/mcL (0.0-0.2); Basophils % 0.5 %; Eosinophils # 0.2 K/mcL (0.0-0.6); Eosinophils % 1.9 %; Immature Granulocytes % 0.5 % (0-4); Lymphocytes # 1.5 K/mcL (0.6-4.6); Mean Corpuscular HGB Conc 31.4 g/dL (31.6-35.5); Mean Corpuscular Hemoglobin 30.4 pg (28.0-33.3); Mean Corpuscular Volume 96.7 fL (83.0-100.0); Mean Platelet Volume 9.6 fL (9.4-12.4); Monocytes # 0.7 K/mcL (0.0-1.3); Monocytes % 6.6 %; Neutrophils # 8.4 K/mcL (1.6-8.9); Platelet Count 421 K/mcL (140-400); Red Blood Count 3.62 M/mcL (3.82-4.97); Red Cell Distribution Width 15.4 % (11.5-14.5); Segmented Neutrophils % 76.5 %
--- NOTE | 2018-01-26 12:48 | Emergency Department Note ---
Disposition Clinical Impression: Generalized weakness, Elevated INR GI bleed Qualifiers: GI bleed type/associated pathology: unspecified gastrointestinal hemorrhage type Qualified Code(s): K92.2 - Gastrointestinal hemorrhage, unspecified Disposition: Admitted As Inpatient Condition: Good Referrals: Jonathan Osman MD [Primary Care Provider] - Forms: ED Satisfaction Letter General Adult HPI - General Chief complaint: ED Weakness Stated complaint: "weak, pain all over" Time Seen by Provider: 01/26/18 12:36 Source: patient, family Limitations: no limitations Nursing Notes Reviewed: Yes Vital Signs Reviewed: Yes - History of Present Illness HPI Narrative: 69-year-old female presents emergency department with generalized weakness. Patient reports that she has had this weakness since she had her cardiac ablation and was started on Tikosyn and a beta odell. Patient reports that it has gotten a little bit worse lately. Patient denies Pain Scale: 8 - Related Data Home Medications Medication Instructions Recorded Confirmed Cholecalciferol (Vitamin D3) 5,000 unit PO DAILY 08/03/15 10/27/17 [Vitamin D3] Multivitamin/Iron/Folic Acid 1 tab PO DAILY 08/03/15 10/27/17 [Centrum Complete Multivit Tab] Atorvastatin [Lipitor] 40 mg PO QPM 08/18/15 10/27/17 Warfarin [Coumadin] 5 mg PO MO 10/13/15 10/27/17 Warfarin [Coumadin] 7.5 mg PO SUTUWETHFRSA 10/13/15 10/27/17 Mirtazapine 7.5 mg PO DAILY PRN 12/19/15 10/27/17 Amlodipine Besylate 5 mg PO DAILY 09/04/17 10/27/17 DULoxetine [Cymbalta] 30 mg PO BID 09/04/17 10/27/17 Gabapentin [Neurontin] 600 mg PO TID PRN 09/04/17 10/27/17 Previous Rx's Medication Instructions Recorded Furosemide [Lasix] 40 mg PO DAILY #30 tablet 12/22/15 Metoprolol [Lopressor] 100 mg PO BID #60 tablet 09/09/17 Dofetilide [Tikosyn] 0.25 mg PO BID capsule 11/01/17 GuaiFENesin ER [Mucinex] 600 mg PO DAILY PRN tbbp.12hr 11/01/17 Lisinopril [Zestril] 2.5 mg PO DAILY #30 tablet 11/01/17 Potassium Chloride 40 meq PO DAILY #30 tab.er.prt 11/01/17 Allergies Allergy/AdvReac Type Severity Reaction Status Date / Time Prazosin [From Minipress] Allergy Anaphylaxis Verified 09/04/17 11:20 cephalexin [From Keflex] AdvReac Vomiting Verified 09/04/17 11:20 All systems ED: reviewed and negative except as stated. Review of Systems: As Per HPI Constitutional: Reports: weakness. Denies: fever Cardiovascular: Denies: chest pain, palpitations Respiratory: Denies: cough, dyspnea Gastrointestinal: Denies: abdominal pain, nausea, vomiting, melena, hematochezia Genitourinary: Denies: urgency, dysuria, frequency, hematuria Musculoskeletal: Denies: back pain, neck pain Integumentary: Denies: rash Neurological: Denies: headache, weakness, numbness, paresthesias Endocrine: Reports: fatigue Hematological/Lymphatic: Denies: easy bleeding Past Medical History - Past Medical History Medical history: Reports: arthritis, atrial fibrillation, cancer, cardiomyopathy , dementia, GERD, hyperlipidemia, hypertension, osteoporosis, syncope, TIA, other Surgical history: Reports: appendectomy, cancer surgery, cataract, cholecystectomy, other Psychiatric history: Reports: anxiety, depression DIE FITTER history: Reports: no DIE FITTER history - Social History Smoking Status: Never smoker Smokeless Tobacco Status: No Alcohol use: Reports: none Drug use: Reports: none Physical Exam - General Limitations: no limitations General appearance: alert, in no apparent distress - Head Head exam: normocephalic - Eye Eye exam: Present: EOMI - ENT ENT exam: normal oropharynx - Neck Neck exam: Present: trachea midline - Chest Chest inspection: Present: symmetric chest wall rise - Respiratory Respiratory exam: Present: normal lung sounds bilaterally. Absent: respiratory distress, accessory muscle use - Cardiovascular Cardiovascular exam: Present: regular rate, normal rhythm, normal heart sounds - Abdominal Exam Abdominal exam: Present: soft, Non-Tender. Absent: distention, guarding, rebound, rigidity - Rectal Exam Intelligence Agent present during exam: Yes Rectal exam: Present: normal inspection, normal rectal tone, heme (+) stool. Absent: black stool, bloody stool, hemorrhoids - Extremities Exam Extremities exam: Present: normal capillary refill - Back Exam Back exam: Present: full ROM - Neurological Exam Neurological exam: Present: alert, oriented X3 - Psychiatric Psychiatric exam: Present: normal mood, flat affect - Skin Skin exam: Present: warm, dry, intact, normal color. Absent: rash Course Vital Signs Temperature 98.3 F 01/26/18 11:09 Pulse Rate 71 01/26/18 11:09 Respiratory Rate 18 01/26/18 11:09 Blood Pressure 124/75 01/26/18 11:09 O2 Sat by Pulse Oximetry 94 01/26/18 11:09 Temperature 98.3 F 01/26/18 11:14 Pulse Rate 79 01/26/18 14:49 Respiratory Rate 18 01/26/18 14:49 Blood Pressure 146/69 01/26/18 14:49 O2 Sat by Pulse Oximetry 95 01/26/18 14:49 Oxygen Delivery Oxygen Delivery Room Air Medical Decision Making - MDM Narrative Medical decision making narrative: 69-year-old female was his emergency department with generalized weakness after starting new medications. Patient's vital signs are within normal limits. We obtained EKG this did not reveal any ischemic ST changes. Troponin is negative. TSH is negative. Hemoglobin is currently 11. It was previously 13.7 in October. Patient is on Coumadin. Her INR is 3.7. Patient is Hemoccult positive. We will admit this patient at this time because of her generalized weakness with elevated INR and decreased hemoglobin with positive Hemoccult. Patient does not warrant any blood transfusion at this time. However, I do think she needs close observation. Hopefully, once is at the hospital, her medications can be sorted out as far as to try to find the true etiology of her generalized weakness as I do not think her drop in hemoglobin could have caused this. Vital Signs Temperature 98.3 F 01/26/18 11:09 Pulse Rate 71 01/26/18 11:09 Respiratory Rate 18 01/26/18 11:09 Blood Pressure 124/75 01/26/18 11:09 O2 Sat by Pulse Oximetry 94 01/26/18 11:09 Temperature 98.3 F 01/26/18 11:14 Pulse Rate 79 01/26/18 14:49 Respiratory Rate 18 01/26/18 14:49 Blood Pressure 146/69 01/26/18 14:49 O2 Sat by Pulse Oximetry 95 01/26/18 14:49 Oxygen Delivery Oxygen Delivery Room Air Chest X-Ray 01/26/18 11:12 IMPRESSION: No acute cardiopulmonary process. D/ / Joaquín Del Rio MD / Joaquín Del Rio MD Interpreting Provider: Joaquín Del Rio MD - Lab Data Result diagrams: 01/26/18 12:19 Lab Results 01/26/18 01/26/18 01/26/18 Range/Units 12:19 12:19 12:31 WBC 11.0 (4.3-11.1) K/mcL RBC 3.62 L (3.82-4.97) M/mcL Hgb 11.0 L (11.5-15.4) g/dL Hct 35.0 L (35.3-44.9) % MCV 96.7 (83.0-100.0) fL MCH 30.4 (28.0-33.3) pg MCHC 31.4 L (31.6-35.5) g/dL RDW 15.4 H (11.5-14.5) % Plt Count 421 H (140-400) K/mcL MPV 9.6 (9.4-12.4) fL Immature Gran % 0.5 (0-4) % Seg Neutrophils % 76.5 % Lymphocytes % 14.0 % Monocytes % 6.6 % Eosinophils % 1.9 % Basophils % 0.5 % Neutrophils # 8.4 (1.6-8.9) K/mcL Lymphocytes # 1.5 (0.6-4.6) K/mcL Monocytes # 0.7 (0.0-1.3) K/mcL Eosinophils # 0.2 (0.0-0.6) K/mcL Basophils # 0.1 (0.0-0.2) K/mcL PT (9.4-12.1) Seconds INR Troponin I < 0.03 (< 0.04) ng/mL B-Natriuretic Peptide 218 H (Less than 100) pg/mL TSH 4.686 (0.340-5.600) mcIU/mL Urine Color (Yellow) Urine Clarity (Clear) Urine pH (5.0-8.0) pH Units Ur Specific [place] (1.010-1.025) Urine Protein (Neg-Trace) mg/dL Urine Glucose (UA) (Normal) mg/dL Urine Ketones (Negative) mg/dL Urine Blood (Negative) Urine Nitrite (Negative) Urine Bilirubin (Negative) Urine Urobilinogen (Normal) mg/dL Ur Leukocyte Esterase (Negative) Urine Microscopic RBC (0-3) per hpf Urine Microscopic WBC (0-3) per hpf Ur Squamous Epith Cells (None-Few) per lpf Urine Bacteria (None-Few) per hpf Hyaline Casts (None-Few) per lpf Ur Culture Indicated? (NO) Stool Occult Bld Scrn (Negative) 01/26/18 01/26/18 01/26/18 Range/Units 12:45 13:00 14:20 WBC (4.3-11.1) K/mcL RBC (3.82-4.97) M/mcL Hgb (11.5-15.4) g/dL Hct (35.3-44.9) % MCV (83.0-100.0) fL MCH (28.0-33.3) pg MCHC (31.6-35.5) g/dL RDW (11.5-14.5) % Plt Count (140-400) K/mcL MPV (9.4-12.4) fL Immature Gran % (0-4) % Seg Neutrophils % % Lymphocytes % % Monocytes % % Eosinophils % % Basophils % % Neutrophils # (1.6-8.9) K/mcL Lymphocytes # (0.6-4.6) K/mcL Monocytes # (0.0-1.3) K/mcL Eosinophils # (0.0-0.6) K/mcL Basophils # (0.0-0.2) K/mcL PT 42.3 H (9.4-12.1) Seconds INR 3.7 Troponin I (< 0.04) ng/mL B-Natriuretic Peptide (Less than 100) pg/mL TSH (0.340-5.600) mcIU/mL Urine Color Yellow (Yellow) Urine Clarity Clear (Clear) Urine pH 6.5 (5.0-8.0) pH Units Ur Specific [place] 1.019 (1.010-1.025) Urine Protein Negative (Neg-Trace) mg/dL Urine Glucose (UA) Normal (Normal) mg/dL Urine Ketones Negative (Negative) mg/dL Urine Blood Negative (Negative) Urine Nitrite Negative (Negative) Urine Bilirubin Negative (Negative) Urine Urobilinogen Normal (Normal) mg/dL Ur Leukocyte Esterase Small H (Negative) Urine Microscopic RBC 3-5 H (0-3) per hpf Urine Microscopic WBC 5-15 H (0-3) per hpf Ur Squamous Epith Cells Many H (None-Few) per lpf Urine Bacteria None Seen (None-Few) per hpf Hyaline Casts None Seen (None-Few) per lpf Ur Culture Indicated? NO. A (NO) Stool Occult Bld Scrn Positive A (Negative) - EKG Data EKG #1 EKG attestation: Yes I reviewed and interpreted this EKG. EKG results narrative: 11:17 Ventricular rate 70 bpm, ND interval 224 ms, QRS duration 100 ms, QTC 421 ms, QTC 441 ms, left axis deviation. Electronic atrial paced rhythm with a rate of 70 beats per minute.
--- NOTE | 2018-01-26 12:49 | Emergency Department Note ---
Disposition Clinical Impression: Generalized weakness, Elevated INR, GI bleed Disposition: Admitted As Inpatient Condition: Good General Adult HPI - General Chief complaint: ED Weakness Stated complaint: "weak, pain all over" Time Seen by Provider: 01/26/18 12:36 Source: patient, family Limitations: no limitations - History of Present Illness Pain Scale: 8 - Related Data Home Medications Medication Instructions Recorded Confirmed Cholecalciferol (Vitamin D3) 5,000 unit PO DAILY 08/03/15 01/26/18 [Vitamin D3] Multivitamin/Iron/Folic Acid 1 tab PO DAILY 08/03/15 01/26/18 [Centrum Complete Multivit Tab] Atorvastatin [Lipitor] 40 mg PO QPM 08/18/15 01/26/18 Warfarin [Coumadin] 5 mg PO SUTUWETHSA 10/13/15 01/26/18 Warfarin [Coumadin] 7.5 mg PO MOFR 10/13/15 01/26/18 Mirtazapine 7.5 mg PO DAILY PRN 12/19/15 01/26/18 Amlodipine Besylate 5 mg PO DAILY 09/04/17 01/26/18 DULoxetine [Cymbalta] 30 mg PO BID 09/04/17 01/26/18 Gabapentin [Neurontin] 600 mg PO TID PRN 09/04/17 01/26/18 Previous Rx's Medication Instructions Recorded Furosemide [Lasix] 40 mg PO DAILY #30 tablet 12/22/15 Metoprolol [Lopressor] 100 mg PO BID #60 tablet 09/09/17 Dofetilide [Tikosyn] 0.25 mg PO BID capsule 11/01/17 GuaiFENesin ER [Mucinex] 600 mg PO DAILY PRN tbbp.12hr 11/01/17 Lisinopril [Zestril] 2.5 mg PO DAILY #30 tablet 11/01/17 Potassium Chloride 40 meq PO DAILY #30 tab.er.prt 11/01/17 Allergies Allergy/AdvReac Type Severity Reaction Status Date / Time Prazosin [From Minipress] Allergy Anaphylaxis Verified 09/04/17 11:20 cephalexin [From Keflex] AdvReac Vomiting Verified 09/04/17 11:20 Past Medical History - Past Medical History Medical history: Reports: arthritis, atrial fibrillation, cancer, cardiomyopathy , dementia, GERD, hyperlipidemia, hypertension, osteoporosis, syncope, TIA, other Surgical history: Reports: appendectomy, cancer surgery, cataract, cholecystectomy, other Psychiatric history: Reports: anxiety, depression TRAINING AND DEVELOPMENT MANAGER history: Reports: no TRAINING AND 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 MANAGER history - Social History Smoking Status: Never smoker Smokeless Tobacco Status: No Alcohol use: Reports: none Drug use: Reports: none Physical Exam - General Limitations: no limitations General appearance: alert, in no apparent distress Course Vital Signs Temperature 98.3 F 01/26/18 11:09 Pulse Rate 71 01/26/18 11:09 Respiratory Rate 18 01/26/18 11:09 Blood Pressure 124/75 01/26/18 11:09 O2 Sat by Pulse Oximetry 94 01/26/18 11:09 Temperature 98.5 F 01/26/18 17:03 Pulse Rate 79 01/26/18 17:03 Respiratory Rate 16 01/26/18 17:03 Blood Pressure 144/65 01/26/18 17:03 O2 Sat by Pulse Oximetry 92 01/26/18 17:03 Oxygen Delivery Oxygen Delivery Room Air Medical Decision Making - Lab Data Result diagrams: 01/26/18 12:19 01/26/18 12:19 Lab Results 01/26/18 01/26/18 01/26/18 Range/Units 12:19 12:19 12:31 WBC 11.0 (4.3-11.1) K/mcL RBC 3.62 L (3.82-4.97) M/mcL Hgb 11.0 L (11.5-15.4) g/dL Hct 35.0 L (35.3-44.9) % MCV 96.7 (83.0-100.0) fL MCH 30.4 (28.0-33.3) pg MCHC 31.4 L (31.6-35.5) g/dL RDW 15.4 H (11.5-14.5) % Plt Count 421 H (140-400) K/mcL MPV 9.6 (9.4-12.4) fL Immature Gran % 0.5 (0-4) % Seg Neutrophils % 76.5 % Lymphocytes % 14.0 % Monocytes % 6.6 % Eosinophils % 1.9 % Basophils % 0.5 % Neutrophils # 8.4 (1.6-8.9) K/mcL Lymphocytes # 1.5 (0.6-4.6) K/mcL Monocytes # 0.7 (0.0-1.3) K/mcL Eosinophils # 0.2 (0.0-0.6) K/mcL Basophils # 0.1 (0.0-0.2) K/mcL PT (9.4-12.1) Seconds INR Sodium 138 (136-145) mEq/L Potassium 3.9 (3.5-5.1) mEq/L Chloride 102 (98-107) mEq/L Carbon Dioxide 24 (23-29) mEq/L BUN 16 (8-23) mg/dL Creatinine 0.90 (0.60-1.20) mg/dL Est GFR ( Amer) > 60 (> 60) Est GFR (Non-Af Amer) > 60 (> 60) BUN/Creatinine Ratio 18 (6-26) Glucose 123 H (70-105) mg/dL Calculated Osmolality 289 (280-300) Calcium 9.1 (8.6-10.3) mg/dL Iron 15 L (50-170) mcg/dL % Saturation 4 L (15-50) % Transferrin 295 (203-362) mg/dL Creatine Kinase 13 L (30-223) Units/L Troponin I < 0.03 (< 0.04) ng/mL B-Natriuretic Peptide 218 H (Less than 100) pg/mL TSH 4.686 (0.340-5.600) mcIU/mL Urine Color (Yellow) Urine Clarity (Clear) Urine pH (5.0-8.0) pH Units Ur Specific [place] (1.010-1.025) Urine Protein (Neg-Trace) mg/dL Urine Glucose (UA) (Normal) mg/dL Urine Ketones (Negative) mg/dL Urine Blood (Negative) Urine Nitrite (Negative) Urine Bilirubin (Negative) Urine Urobilinogen (Normal) mg/dL Ur Leukocyte Esterase (Negative) Urine Microscopic RBC (0-3) per hpf Urine Microscopic WBC (0-3) per hpf Ur Squamous Epith Cells (None-Few) per lpf Urine Bacteria (None-Few) per hpf Hyaline Casts (None-Few) per lpf Ur Culture Indicated? (NO) Stool Occult Bld Scrn (Negative) 01/26/18 01/26/18 01/26/18 Range/Units 12:45 13:00 14:20 WBC (4.3-11.1) K/mcL RBC (3.82-4.97) M/mcL Hgb (11.5-15.4) g/dL Hct (35.3-44.9) % MCV (83.0-100.0) fL MCH (28.0-33.3) pg MCHC (31.6-35.5) g/dL RDW (11.5-14.5) % Plt Count (140-400) K/mcL MPV (9.4-12.4) fL Immature Gran % (0-4) % Seg Neutrophils % % Lymphocytes % % Monocytes % % Eosinophils % % Basophils % % Neutrophils # (1.6-8.9) K/mcL Lymphocytes # (0.6-4.6) K/mcL Monocytes # (0.0-1.3) K/mcL Eosinophils # (0.0-0.6) K/mcL Basophils # (0.0-0.2) K/mcL PT 42.3 H (9.4-12.1) Seconds INR 3.7 Sodium (136-145) mEq/L Potassium (3.5-5.1) mEq/L Chloride (98-107) mEq/L Carbon Dioxide (23-29) mEq/L BUN (8-23) mg/dL Creatinine (0.60-1.20) mg/dL Est GFR ( Amer) (> 60) Est GFR (Non-Af Amer) (> 60) BUN/Creatinine Ratio (6-26) Glucose (70-105) mg/dL Calculated Osmolality (280-300) Calcium (8.6-10.3) mg/dL Iron (50-170) mcg/dL % Saturation (15-50) % Transferrin (203-362) mg/dL Creatine Kinase (30-223) Units/L Troponin I (< 0.04) ng/mL B-Natriuretic Peptide (Less than 100) pg/mL TSH (0.340-5.600) mcIU/mL Urine Color Yellow (Yellow) Urine Clarity Clear (Clear) Urine pH 6.5 (5.0-8.0) pH Units Ur Specific [place] 1.019 (1.010-1.025) Urine Protein Negative (Neg-Trace) mg/dL Urine Glucose (UA) Normal (Normal) mg/dL Urine Ketones Negative (Negative) mg/dL Urine Blood Negative (Negative) Urine Nitrite Negative (Negative) Urine Bilirubin Negative (Negative) Urine Urobilinogen Normal (Normal) mg/dL Ur Leukocyte Esterase Small H (Negative) Urine Microscopic RBC 3-5 H (0-3) per hpf Urine Microscopic WBC 5-15 H (0-3) per hpf Ur Squamous Epith Cells Many H (None-Few) per lpf Urine Bacteria None Seen (None-Few) per hpf Hyaline Casts None Seen (None-Few) per lpf Ur Culture Indicated? NO. A (NO) Stool Occult Bld Scrn Positive A (Negative) Attestation Statement - Attestation Attestation: I examined this patient and my medical decision-making was reviewed with the Resident Physician. I agree with the documented findings, disposition and treatment plan as described except to the extent set forth below. [id number] time provided Patient presents with generalized weakness. She states symptoms started after she was started on a beta odell after cardiac ablation several weeks ago. She has a blunted affect at the time of my exam. Family at bedside
[2018-01-26 12:59] LABS: Troponin I < 0.03 ng/mL (< 0.04)
[2018-01-26 13:11] LABS: Bilirubin,Urine Negative (Negative); Blood,Urine Negative (Negative); Clarity,Urine Clear (Clear); Color,Urine Yellow (Yellow); Glucose,Urine (UA) Normal (Normal); Ketones,Urine Negative (Negative); Leukocyte Esterase,Urine Small (Negative); Nitrite,Urine Negative (Negative); PH,Urine 6.5 pH Units (5.0-8.0); Protein,Urine Negative (Neg-Trace); Specific Gravity,Urine 1.019 (1.010-1.025); Urobilinogen,Urine Normal (Normal)
[2018-01-26 13:11] LABS: INR 3.7; Prothrombin Time 42.3 Seconds (9.4-12.1)
[2018-01-26 13:14] LABS: Bacteria,Urine None Seen per hpf (None-Few); Hyaline Casts,Urine None Seen per lpf (None-Few); Squamous Epithelial Cell,Urine Many per lpf (None-Few)
[2018-01-26 14:29] LABS: Thyroid Stimulating Hormone 4.686 mcIU/mL (0.340-5.600)
--- NOTE | 2018-01-26 15:50 | Internal Med History&Physical ---
<Rei Fortune S - Last Filed: 01/26/18 16:39> Date of Encounter: 01/26/18 Time of Encounter: 03:46 Internal Medicine - H&P: HPI Chief complaint: weakness Admitted From: Home Plans for Post Hospital Care: Home History of present illness: Ms. Tavares is a 77 year old female who came to the hospital with complaints of weakness. She states she has been feeling weak since October when Dofetilide was started. She is s/p atrial ablation for a fib and has a PMH of HTN, rheumatoid arthritis, skin cancer, rheumatoid arthritis. The patient states her weakness has been going on since October -it is all the time and has had a gradual, insidious onset -it gets better with laying down, worse with activity -the weakness is constant and severe, it is interferring with her ADL's as she is unable "to do anything" -associated s/s include dizziness and lightheadedness, she denies any presyncope /syncope, unusual weight loss, or noticable bleeding -the patient denies having any association to this with her Warfain and makes sure to keep her PT/INR in a [place] range. She has been on warfarin for three years -the patient states she has had a decreased appetite -she denies any recent trauma or falls Past Med Surg Social Fam HX - Past Medical History Medical history: arthritis, atrial fibrillation, cancer, cardiomyopathy, dementia, GERD, hyperlipidemia, hypertension, osteoporosis, syncope, TIA, other Additional medical history: Skin Cancer Psychiatric history: anxiety, depression - Past Surgical History Surgical History: appendectomy, cancer surgery, cataract, cholecystectomy, other Additional surgical history: distal radius fracture right - Social History Smoking Status: Never smoker Smokeless Tobacco Status: No Alcohol use: none Drug use: none - Family History Father Family Member Ethnicity: Non- Living Status: Hx Family Cancer: Yes Brother Family Member Ethnicity: Non- Living Status: Still Living Hx Family Neuromuscular Disorders: Yes (Parkinson's Disease) Sister Family Member Ethnicity: Non- Living Status: Hx Family Cancer: Yes (Breast) Mother Family Member Ethnicity: Non- Living Status: Hx Family Cardiac Disorders: Yes (Heart Disease) Hx Family Respiratory Disorders: No Hx Family Cancer: No Hx Family GI Disorders: No Hx Family Endocrine Disorder: No Hx Family Neuromuscular Disorders: No Hx Family Neurologic Disorders: No Hx Family HEENT Disorders: No Hx Family Autoimmune Disorders: No Internal Medicine - H&P: Meds Cholecalciferol (Vitamin D3) [Vitamin D3] 5,000 unit PO DAILY 08/03/15 [History] Multivitamin/Iron/Folic Acid [Centrum Complete Multivit Tab] 1 tab PO DAILY [History] Atorvastatin [Lipitor] 40 mg PO QPM 08/18/15 [History] Warfarin [Coumadin] 5 mg PO SUTUWETHSA 10/13/15 [History] Warfarin [Coumadin] 7.5 mg PO MOFR 10/13/15 [History] Mirtazapine 7.5 mg PO DAILY PRN 12/19/15 [History] Furosemide [Lasix] 40 mg PO DAILY #30 tablet 12/22/15 [Rx] Amlodipine Besylate 5 mg PO DAILY 09/04/17 [History] DULoxetine [Cymbalta] 30 mg PO BID 09/04/17 [History] Gabapentin [Neurontin] 600 mg PO TID PRN 09/04/17 [History] Metoprolol [Lopressor] 100 mg PO BID #60 tablet 09/09/17 [Rx] Dofetilide [Tikosyn] 0.25 mg PO BID capsule 11/01/17 [Rx] GuaiFENesin ER [Mucinex] 600 mg PO DAILY PRN tbbp.12hr 11/01/17 [Rx] Lisinopril [Zestril] 2.5 mg PO DAILY #30 tablet 11/01/17 [Rx] Potassium Chloride 40 meq PO DAILY #30 tab.er.prt 11/01/17 [Rx] 3 Allergy/AdvReac Type Severity Reaction Status Date / Time Prazosin [From Minipress] Allergy Anaphylaxis Verified 09/04/17 11:20 cephalexin [From Keflex] AdvReac Vomiting Verified 09/04/17 11:20 All Systems PM: A 10-system review of systems was performed and is negative for pertinent findings except as documented above in the HPI. - Constitutional Constitutional: anorexia, fatigue, weakness, no chills, no falls - EENT Eyes: blurry vision, no loss of vision, no pain Ears: no decreased hearing, no ear pain - Cardiovascular Cardiovascular ROS IM: dyspnea on exertion, no chest pain, no diaphoresis, no palpitations, no syncope - Respiratory Respiratory: dyspnea on exertion, no cough, no dyspnea, no pain on inspiration - Gastrointestinal Gastrointestinal: no change in bowel habits, no coffee ground emesis, no diarrhea, no dysphagia, no hematochezia, no melena, no vomiting - Genitourinary Genitourinary: no dysuria, no hematuria - Musculoskeletal Musculoskeletal ROS IM: arthralgias, muscle weakness, numbness, tingling - Integumentary Integumentary IM: unusual bruising, no skin ulcer - Neurological Neurological ROS: dizziness, numbness, paresthesias, tingling, weakness, no frequent falls - Psychiatric Psychiatric: no confusion, no irritability - Hematologic/Lymphatic Hematologic/Lymphatic: easy bruising, no easy bleeding - Constitutional Vitals: Temp Pulse Resp BP Pulse Ox 98.3 F 79 18 146/69 95 01/26/18 11:14 01/26/18 14:49 01/26/18 14:49 01/26/18 14:49 01/26/18 14:49 General appearance: Present: mild distress, A&O X 3, pleasant - Eye Eye exam: Present: EOMI - Neck Neck exam general surgery: Present: supple - Respiratory Respiratory exam: Present: CTAB. Absent: rhonchi, stridor, wheezes - Cardiovascular Cardiovascular exam: Present: RRR, +S1, +S2 - GI/Abdominal GI/Abdominal exam: Present: normal bowel sounds, soft, no peritoneal signs. Absent: guarding, tenderness - Neurological Exam Neurological exam: Present: alert, altered, oriented X3, no focal deficits, strengths equal and symetr throughout - Psychiatric Psychiatric exam: Present: normal affect, normal mood - Skin Skin exam: Present: intact, warm Internal Med - H&P Results - Labs CBC & Chem 7: 01/26/18 12:19 01/26/18 12:19 Labs: Short CBC 01/26/18 Range/Units 12:19 WBC 11.0 (4.3-11.1) K/mcL Hgb 11.0 L (11.5-15.4) g/dL Hct 35.0 L (35.3-44.9) % Plt Count 421 H (140-400) K/mcL Neutrophils # 8.4 (1.6-8.9) K/mcL Cardiac Enzymes 01/26/18 Range/Units 12:19 Troponin I < 0.03 (< 0.04) ng/mL Urine 01/26/18 Range/Units 13:00 Urine Color Yellow (Yellow) Urine Clarity Clear (Clear) Urine pH 6.5 (5.0-8.0) pH Units Ur Specific [place] 1.019 (1.010-1.025) Urine Protein Negative (Neg-Trace) mg/dL Urine Glucose (UA) Normal (Normal) mg/dL - Impressions ITS Impressions Chest X-Ray 01/26/18 11:12 IMPRESSION: No acute cardiopulmonary process. D/ / Joaquín Del Rio MD / Joaquín Del Rio MD Interpreting Provider: Joaquín Del Rio MD - Assessment and plan (1) GI bleed Current Visit: Yes Status: Acute Assessment and plan: Pt has a FOBT(+) -hemoglobin is 11, usually baseline is 13.7 -check CBC in AM -will check an iron, ferritin, TIBC level on the pt to r/o IDH -last colonoscopy >10years ago and was normal -the patient denies seeing any blood in stool, blood when wiping, having any hemmroids, any vomit with blood -pt is on coumadin with PT 42.3 and INR 3.7, will monitor these -will hold coumadin -avoid NSAIDs in the pt - Qualifiers: GI bleed type/associated pathology: unspecified gastrointestinal hemorrhage type Qualified Code(s): K92.2 - Gastrointestinal hemorrhage, unspecified (2) Hypertension Current Visit: No Status: Chronic Assessment and plan: BP 124/75 -on Amlodipine, lopressor, and zestril -continue home meds -well controlled Qualifiers: Hypertension type: essential hypertension Qualified Code(s): I10 - Essential (primary) hypertension (3) Atrial fibrillation status post cardioversion Current Visit: No Status: Chronic Assessment and plan: pt is s/p atrial ablation in october -was placed on Dofetilide (class III antiarrythmic rx) -will put pt on telemetry due to TdT as a side effect (4) Chronic diastolic (congestive) heart failure Current Visit: No Status: Chronic Assessment and plan: pt has a hx of chronic CHF -on Lasix, lipitor -CXR negative for acute cardiopulmonary process -last ECHO 10/22 showed LVEF 60%, severe pulmonary HTN (5) DVT prophylaxis Current Visit: Yes Status: Acute Assessment and plan: SCDs - Time Spent With Patient Total time spent is greater than 50% in coordination of care (as documented) at patient's floor/unit and/or counseling patient: 25 - 35 minutes <Dania Collins - Last Filed: 01/26/18 22:45> Date of Encounter: 01/26/18 Internal Medicine - H&P: HPI History of present illness: Ms. Tavares is a 77 year old female All Systems PM: A 10-system review of systems was performed and is negative for pertinent findings except as documented above in the HPI. - Constitutional Vitals: Temp Pulse Resp BP Pulse Ox 98.3 F 72 17 134/58 95 01/26/18 20:26 01/26/18 20:26 01/26/18 20:26 01/26/18 20:26 01/26/18 20:26 Internal Med - H&P Results - Labs CBC & Chem 7: 01/26/18 19:02 01/26/18 12:19 Labs: Short CBC 01/26/18 Range/Units 19:02 Hgb 10.6 L (11.5-15.4) g/dL Hct 33.3 L (35.3-44.9) % - Attending Attestation Seen and assessed. being managed for query GI bleed and supratherapeutic INR. Agree with plan per resident - Assessment and plan (1) GI bleed Current Visit: Yes Status: Acute Qualifiers: GI bleed type/associated pathology: unspecified gastrointestinal hemorrhage type Qualified Code(s): K92.2 - Gastrointestinal hemorrhage, unspecified (2) Supratherapeutic INR Current Visit: Yes Status: Acute Assessment and plan: INR was 3.7 on admission with positive heme occcult blood. Hold coumadin. Consider outpatient follow up with GI (3) Hypertension Current Visit: No Status: Chronic Qualifiers: Hypertension type: essential hypertension Qualified Code(s): I10 - Essential (primary) hypertension (4) Atrial fibrillation status post cardioversion Current Visit: No Status: Chronic (5) Chronic diastolic (congestive) heart failure Current Visit: No Status: Chronic (6) DVT prophylaxis Current Visit: Yes Status: Acute - Time Spent With Patient Total time spent is greater than 50% in coordination of care (as documented) at patient's floor/unit and/or counseling patient:
[2018-01-26 16:00] LABS: BUN/Creatinine Ratio 18 (6-26); Blood Urea Nitrogen 16 mg/dL (8-23); Calcium 9.1 mg/dL (8.6-10.3); Carbon Dioxide 24 mEq/L (23-29); Chloride 102 mEq/L (98-107); Glucose 123 mg/dL (70-105); Osmolality,Calculated 289 (280-300); Potassium 3.9 mEq/L (3.5-5.1); Sodium 138 mEq/L (136-145); eGFR For Non-African Americans > 60 (> 60)
[2018-01-26] MEDS ORDERED: Naloxone 0.4 MG/ML INJ IVP PRN ×2 (16:16→16:19)
[2018-01-26 17:04] LABS: % Iron Saturation 4 % (15-50); Creatine Kinase 13 Units/L (30-223); Iron 15 mcg/dL (50-170); Transferrin 295 mg/dL (203-362)
[2018-01-26] MEDS ORDERED: NON-FORMULARY MEDICATION 1 EACH EACH (Gabapentin [Neurontin] 600 MG) PO PRN (17:38)
[2018-01-26] MEDS ORDERED: Acetaminophen 325 MG TABLET PO PRN (18:24)
[2018-01-26] MEDS ORDERED: traMADol 50 MG TABLET PO PRN (18:29)
[2018-01-26] MEDS: *HR* OxyCODONE Immed Rel 5 MG TABLET PO PRN (18:56)
[2018-01-26 19:48] LABS: Hematocrit 33.3 % (35.3-44.9); Hemoglobin 10.6 g/dL (11.5-15.4)
[2018-01-26] MEDS: Metoprolol 100 MG TABLET PO SCH (22:19)
[2018-01-26] MEDS: Mirtazapine 15 MG TABLET PO SCH (22:19)
[2018-01-26] MEDS: Pantoprazole 40 MG VIAL IVP SCH (22:19)
[2018-01-26] MEDS ORDERED: Gabapentin 300 MG CAPSULE PO ONE (22:56)
[2018-01-27] MEDS: *HR* OxyCODONE Immed Rel 5 MG TABLET PO PRN ×2 (01:17→08:47)
[2018-01-27 05:40] LABS: Basophils # 0.1 K/mcL (0.0-0.2); Basophils % 0.7 %; Eosinophils # 0.2 K/mcL (0.0-0.6); Eosinophils % 2.2 %; Hematocrit 31.4 % (35.3-44.9); Hemoglobin 9.9 g/dL (11.5-15.4); Immature Granulocytes % 0.4 % (0-4); Lymphocytes # 1.7 K/mcL (0.6-4.6); Lymphocytes % 17.4 %; Mean Corpuscular HGB Conc 31.5 g/dL (31.6-35.5); Mean Corpuscular Hemoglobin 30.1 pg (28.0-33.3); Mean Corpuscular Volume 95.4 fL (83.0-100.0); Mean Platelet Volume 9.8 fL (9.4-12.4); Monocytes # 0.8 K/mcL (0.0-1.3); Neutrophils # 6.9 K/mcL (1.6-8.9); Platelet Count 391 K/mcL (140-400); Red Blood Count 3.29 M/mcL (3.82-4.97); Red Cell Distribution Width 15.3 % (11.5-14.5); Segmented Neutrophils % 71.3 %
[2018-01-27 05:51] LABS: Alanine Aminotransferase 5 Units/L (7-52); Albumin 2.6 g/dL (3.5-5.7); Albumin/Globulin Ratio 0.8 (1.1-2.2); Alkaline Phosphatase 73 Units/L (34-104); Aspartate Amino Transferase 18 Units/L (13-39); BUN/Creatinine Ratio 18 (6-26); Bilirubin,Total 0.4 mg/dL (0.3-1.0); Blood Urea Nitrogen 11 mg/dL (8-23); Calcium 8.6 mg/dL (8.6-10.3); Carbon Dioxide 25 mEq/L (23-29); Chloride 103 mEq/L (98-107); Chol/HDL Ratio 5.9 (0-4.9); Cholesterol 136 mg/dL (< 200); Globulin 3.1 g/dL (2.4-3.5); Glucose 99 mg/dL (70-105); HDL Cholesterol 23 mg/dL (40-59); LDL Cholesterol,Calculated 74 mg/dL (0-99); Osmolality,Calculated 279 (280-300); Potassium 3.8 mEq/L (3.5-5.1); Sodium 135 mEq/L (136-145); Total Protein 5.7 g/dL (6.4-8.9); Triglycerides 195 mg/dL (< 150); eGFR For Non-African Americans > 60 (> 60)
[2018-01-27 05:56] LABS: Prothrombin Time 34.3 Seconds (9.4-12.1)
[2018-01-27] MEDS: Pantoprazole 40 MG VIAL IVP SCH ×2 (06:06→18:31)
--- NOTE | 2018-01-27 06:07 | Electrocardiograph Report ---
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
[2018-01-27] MEDS ORDERED: *HR* Phytonadione 5 MG TABLET PO ONE ×3 (07:09→15:15)
--- NOTE | 2018-01-27 08:41 | Internal Med Progress Note ---
Date of Encounter: 01/27/18 Time of Encounter: 08:25 - Assessment and plan (1) GI bleed Current Visit: Yes Status: Acute Assessment and plan: Pt has a FOBT(+) -hemoglobin is 9.9, was 11 on admit -check CBC in AM -last colonoscopy >10years ago and was normal -the patient denies seeing any blood in stool, blood when wiping, having any hemmroids, any vomit with blood -pt is on coumadin with PT 34.3, INR 3, will monitor these -continue to avoid nsaids -avoid NSAIDs in the pt -GI consulted - will see the pt this afternoon. They said to give her 10mg Vitamin K, start clear liquids and put NPO tonight -the pt is on Protonix 40mg BID -avoid nsaids Qualifiers: GI bleed type/associated pathology: unspecified gastrointestinal hemorrhage type Qualified Code(s): K92.2 - Gastrointestinal hemorrhage, unspecified (2) Supratherapeutic INR Current Visit: Yes Status: Acute Assessment and plan: -the patient denies seeing any blood in stool, blood when wiping, having any hemmroids, any vomit with blood -pt is on coumadin with PT 34.3, INR 3, will monitor these -coumadin held -gave vitamin K 10mg -will check PT/INR in morning (3) Iron deficiency anemia Current Visit: No Status: Acute Assessment and plan: Fe 15 Fe sat 4% Transferrin 295 will start pt on PO Ferrous sulfate one time daily with Vitamin C Qualifiers: Iron deficiency anemia type: unspecified iron deficiency Qualified Code(s) : D50.9 - Iron deficiency anemia, unspecified (4) Hypertension Current Visit: No Status: Chronic Assessment and plan: BP 115/53 -on Amlodipine, lopressor, and zestril -continue home meds -well controlled Qualifiers: Hypertension type: essential hypertension Qualified Code(s): I10 - Essential (primary) hypertension (5) Atrial fibrillation status post cardioversion Current Visit: No Status: Chronic Assessment and plan: pt is s/p atrial ablation in october -was placed on Dofetilide (class III antiarrythmic rx) -will put pt on telemetry due to TdT as a side effect -currently not in a fib, HR 97 -coumadin held -cardiology to see to possibly d/c the dofetilide (6) DVT prophylaxis Current Visit: Yes Status: Acute Assessment and plan: SCDs - Time Spent With Patient Total time spent is greater than 50% in coordination of care (as documented) at patient's floor/unit and/or counseling patient: less than 15 minutes - Subjective Interval history: pt is seen at bedside. she has a past medical hx of a fib s/p atrial ablation, diastolic chf, rheumatoid arthritis, and hypertension. she came to the hospital today after feeling weak since october. On admission the pt had a hemoglobin of 11 , this morning her hemoglobin s 9.9 -pt has a supratheraputic PT/INR , PT 34.3 (42.3 yesterday), INR 3 (3.7 yesterday) -the pt has no complaints this morning -the pt denies chest pain, SOB, N/V/D, abd pain, hemetemesis, melena, or noticing any blood when she wipes -GI to see and awaiting their recommendations, currently on clear liquids and will switch to NPO at midnight Fluids - none electrolytes - all WNL Nutrition - clear liquids, NPO at midnight DVT prophylaxis - SCD's GI prophylaxis - on protonix 40mg BID - Constitutional Vitals: Temp Pulse Resp BP Pulse Ox 98.7 F 97 16 115/53 94 01/27/18 07:08 01/27/18 07:08 01/27/18 07:08 01/27/18 07:08 01/27/18 07:08 General appearance: Present: A&O X 3, pleasant - Head Head exam: Present: normal inspection - Neck Neck exam general surgery: Present: supple - Respiratory Respiratory exam: Present: CTAB - Cardiovascular Cardiovascular exam: Present: RRR, +S1, +S2 - GI/Abdominal GI/Abdominal exam: Present: soft, no peritoneal signs. Absent: tenderness - Neurological Exam Neurological exam: Present: no focal deficits - Skin Skin exam: Present: intact Internal Medicine: Result - Labs CBC & Chem 7: 01/27/18 04:59 01/27/18 04:59 Labs: Short CBC 01/26/18 01/27/18 Range/Units 19:02 04:59 WBC 9.7 (4.3-11.1) K/mcL Hgb 10.6 L 9.9 L (11.5-15.4) g/dL Hct 33.3 L 31.4 L (35.3-44.9) % Plt Count 391 (140-400) K/mcL Neutrophils # 6.9 (1.6-8.9) K/mcL BMP 01/27/18 04:59 Sodium 135 L Potassium 3.8 Chloride 103 Carbon Dioxide 25 BUN 11 Creatinine 0.61 Glucose 99 Calcium 8.6 Liver Function 01/27/18 Range/Units 04:59 Total Bilirubin 0.4 (0.3-1.0) mg/dL AST 18 (13-39) Units/L ALT 5 L (7-52) Units/L Alkaline Phosphatase 73 (34-104) Units/L Albumin 2.6 L (3.5-5.7) g/dL - ABG Interpretation ABG results: PT/INR, D-dimer PT 34.3 Seconds (9.4-12.1) H 01/27/18 04:59 Consult Discharge Plan - Plan Referrals: Jonathan Osman MD [Primary Care Provider] -
--- NOTE | 2018-01-27 12:16 | Event Note ---
Date of Encounter: 01/27/18 Time of Encounter: 12:12 Patient was seen and examined. I agree with the progress note as written by the resident physician. Patient was admitted yesterday with weakness and found to have an area and a positive FOBT. INR was 3.7 on admission and is down to 3.0 this morning with vitamin K given. The patient has been feeling weak and presyncopal episodes. She was placed on Tikosyn in October and she associated her symptoms with the start of that. She is status post ablation for A. fib back pain. Hemoglobin was 11 on admission and is down to 9.9 this morning. Hemoglobin was 14.4 in October. GEN: NAD CVS: RRR. S1, S2, No m/r/g RESP: CTAB ABD: Soft, NT, ND, +BS EXT: No edema. 2+ DP. No rashes NEURO: Nonfocal Patient is to be seen by GI and will likely need a EGD/colonoscopy Check iron studies Agree with Vit K Need to have a discussion about Coumadin/anticoagulation prior to d/c Can have clear liquid diet today as I doubt any GI intervention will be done today. Her feelings of weakness and presyncopal episodes are likely to be from gradual decrease in her hemoglobin Normal TSH Resume home meds SCDs
--- NOTE | 2018-01-27 13:35 | Gastroenterology Consult Note ---
<Jj Barnes - Last Filed: 01/27/18 15:38> Date of Encounter: 01/27/18 Time of Encounter: 11:00 - Assessment and plan (1) GI bleed Current Visit: Yes Status: Suspected Assessment and plan: - Suspected recent iron deficiency anemia, elevated RDW, Mcv within normal limits - H/H of 9.9/31.4 which is mildly decreased from presentation with hgb of 11.0 - Patient has been hemodynamically stable since admission - Hemoglobin of 13-14 in October 2017 on last admission for atrial fibrillation - INR 3.0, 10 units of vitamin K as above Patient denies any history or symptoms of hematochezia or melena Plan - 10 units of vitamin K as above - Clear liquid diet was nothing by mouth at midnight - Anticipate both EGD/colonoscopy tomorrow afternoon - Procedure depends upon INR drawn the morning - Continue to monitor and transfuse as necessary - Further plan as discussed with Dr. Paul Qualifiers: GI bleed type/associated pathology: unspecified gastrointestinal hemorrhage type Qualified Code(s): K92.2 - Gastrointestinal hemorrhage, unspecified (2) On warfarin therapy Current Visit: Yes Status: Chronic Assessment and plan: - INR of 3.7 on presentation, down trending to 3.0. Continue to hold Coumadin - Concern for possible GI bleed given positive fecal occult blood test - We will give 10 units of vitamin K and recheck tomorrow morning in anticipation for possible EGD/colonoscopy tomorrow afternoon (3) Atrial fibrillation Current Visit: Yes Status: Chronic Assessment and plan: - Known history of atrial fibrillation on warfarin anticoagulation. CHADVASC 5 - Patient reports onset of symptoms since changing rate control medications to tikosyn - Cardiology has been consulted - We will hold warfarin therapy as above for potential GI bleed, otherwise further recommendations per cardiology and primary team Qualifiers: Atrial fibrillation type: paroxysmal Qualified Code(s): I48.0 - Paroxysmal atrial fibrillation (4) Elevated INR Current Visit: Yes Status: Acute Assessment and plan: - 3.7 on admission, secondary to warfarin use - Most recently 3.0. We will give 10 units of vitamin K and recheck in the morning and anticipation for possible EGD/colonoscopy in the setting of possible GI bleed (5) Iron deficiency anemia Current Visit: Yes Status: Acute Assessment and plan: As above, likely secondary to chronic blood loss on anticoagulation Qualifiers: Iron deficiency anemia type: chronic blood loss Qualified Code(s): D50.0 - Iron deficiency anemia secondary to blood loss (chronic) - Time Spent With Patient Total time spent is greater than 50% in coordination of care (as documented) at patient's floor/unit and/or counseling patient: GI History of Present Illness - Data of Consult Consult date: 01/27/18 Requesting Physician: Dania Collins - Consult Narrative Reason for consult: Potential GI bleed, FOBT + History of present illness: Ms. Tavares is a 77 year old female with past medical history of atrial fibrillation on Coumadin, skin cancer, dementia, reflux, hyperlipidemia, hypertension, TIA, cardiomyopathy who presented to emergency department with complaint of weakness and diffuse pain for the last 3 months. Patient and daughter was present at bedside both explained that her symptoms seem to have started upon her last admission when her medications for atrophic fibrillation were changed at that time. Patient states that she has felt chronically weak with exacerbating symptom of activity and relieving symptom of breast since last discharge. She does admit to very occasional lightheadedness while rising from a seated position but denies any symptoms of shortness of breath, chest pain, vomiting, changes in bowel movements including hematochezia or melena, abdominal pain. Does have occasional constipation where she reports large firm bowel movements with infrequency. She does admit to also occasional nausea but states that it is well-controlled at this time. She has been compliant with her Coumadin and INR on presentation was 3.0. Gastroenterology was consulted for concerns for possible GI bleed as the etiology for her weakness. Fecal occult blood test was positive in the emergency department. H/H most recently was 9.9/31.4 and hemoglobin was noted to be 13.7 in October of this year during last hospital admission. She states that last colonoscopy was greater than 10 years ago however she states was normal at that time. Most recent EGD on chart review was 10/19/12 which showed a hiatal hernia, tortuous esophagus, Schatzki's ring which was dilated. She reports no history of GI bleeding that she is aware of. Colonoscopy: Greater than 10 years ago, patient reports normal EGD: 10/19/12: Hiatal hernia, tortuous esophagus, Schatzki's ring Past Med Surg Social Fam HX - Past Medical History Medical history: arthritis, atrial fibrillation, cancer, cardiomyopathy, dementia, GERD, hyperlipidemia, hypertension, osteoporosis, syncope, TIA, other Additional medical history: Skin Cancer Psychiatric history: anxiety, depression - Past Surgical History Surgical History: appendectomy, cancer surgery, cataract, cholecystectomy, other Additional surgical history: distal radius fracture right, pacemaker - Social History Smoking Status: Never smoker Smokeless Tobacco Status: No Alcohol use: none Drug use: none - Family History Father Family Member Ethnicity: Non- Living Status: Hx Family Cancer: Yes Brother Family Member Ethnicity: Non- Living Status: Still Living Hx Family Neuromuscular Disorders: Yes (Parkinson's Disease) Sister Family Member Ethnicity: Non- Living Status: Hx Family Cancer: Yes (Breast) Mother Family Member Ethnicity: Non- Living Status: Hx Family Cardiac Disorders: Yes (Heart Disease) Hx Family Respiratory Disorders: No Hx Family Cancer: No Hx Family GI Disorders: No Hx Family Endocrine Disorder: No Hx Family Neuromuscular Disorders: No Hx Family Neurologic Disorders: No Hx Family HEENT Disorders: No Hx Family Autoimmune Disorders: No - Gastrointestinal Gastrointestinal: Present: constipation, nausea. Absent: abdominal pain, bloating, change in bowel habits, coffee ground emesis, diarrhea, heartburn, hematemesis, hematochezia, melena, vomiting - Constitutional Constitutional: fatigue, no fever(s) - Cardiovascular Cardiovascular ROS: Present: irregular heart rhythm. Absent: chest pain - Respiratory Respiratory IM: Present: dyspnea (On exertion). Absent: cough - Genitourinary Genitourinary: Absent: change in color - Hematologic/Lymphatic Hematologic/Lymphatic pediatric: Absent: easy bleeding - Integumentary Integumentary GI: Absent: jaundice, pruritis - Constitutional Vitals: Temp Pulse Resp BP Pulse Ox 98.7 F 97 16 115/53 94 01/27/18 07:08 01/27/18 07:08 01/27/18 07:08 01/27/18 07:08 01/27/18 07:08 Exam: Gen.: Vitals noted. No acute distress. AAOx3. Pleasant, resting comfortably in bed HEENT: PERRL/EOMI, oropharynx clear, Normocephalic, atraumatic, MMM Cardiac: Irregular rhythm, no murmur, +S1/S2 Pulmonary: CTA bilaterally, no wheezes, rales or rhonchi, equal chest expansion Abdomen: soft, very mild tenderness in the epigastric region, BS noted, no guarding, no rebound. Extremities: no BLE edema, nontender calf, no cyanosis or clubbing Neuro: A&Ox3, moves all extremities, no focal deficits Psych: Appropriate mood and behavior Results - Labs CBC & Chem 7: 01/27/18 04:59 01/27/18 04:59 Labs: Last Result Calcium 8.6 mg/dL (8.6-10.3) 01/27/18 04:59 Iron 15 mcg/dL (50-170) L 01/26/18 12:19 % Saturation 4 % (15-50) L 01/26/18 12:19 Transferrin 295 mg/dL (203-362) 01/26/18 12:19 Troponin I < 0.03 ng/mL (< 0.04) 01/26/18 12:19 Triglycerides 195 mg/dL (< 150) H 01/27/18 04:59 Entire Visit Hgb 9.9 g/dL (11.5-15.4) L 01/27/18 04:59 Hct 31.4 % (35.3-44.9) L 01/27/18 04:59 PT 34.3 Seconds (9.4-12.1) H 01/27/18 04:59 Total Bilirubin 0.4 mg/dL (0.3-1.0) 01/27/18 04:59 AST 18 Units/L (13-39) 01/27/18 04:59 ALT 5 Units/L (7-52) L 01/27/18 04:59 - ABG ABG results: PT/INR, D-dimer PT 34.3 Seconds (9.4-12.1) H 01/27/18 04:59 Consult Discharge Plan - Plan Referrals: Jonathan Osman MD [Primary Care Provider] - <Andrew Paul - Last Filed: 01/29/18 05:16> Date of Encounter: 01/27/18 - Time Spent With Patient Total time spent is greater than 50% in coordination of care (as documented) at patient's floor/unit and/or counseling patient: GI History of Present Illness - Data of Consult Requesting Physician: Dania Collins - Consult Narrative History of present illness: Ms. Tavares is a 77 year old female - Constitutional Vitals: Temp Pulse Resp BP Pulse Ox 98.0 F 80 18 119/57 96 01/29/18 04:51 01/29/18 04:51 01/29/18 04:51 01/29/18 04:51 01/29/18 04:51 Results - Labs CBC & Chem 7: 01/29/18 04:26 01/28/18 03:38 Labs: Last Result Calcium 8.5 mg/dL (8.6-10.3) L 01/28/18 03:38 Iron 15 mcg/dL (50-170) L 01/26/18 12:19 % Saturation 4 % (15-50) L 01/26/18 12:19 Transferrin 295 mg/dL (203-362) 01/26/18 12:19 Ferritin 21 ng/mL (10-120) 01/28/18 03:38 Troponin I < 0.03 ng/mL (< 0.04) 01/26/18 12:19 Triglycerides 195 mg/dL (< 150) H 01/27/18 04:59 Entire Visit Hgb 11.3 g/dL (11.5-15.4) L 01/29/18 04:26 Hct 35.6 % (35.3-44.9) 01/29/18 04:26 PT 17.6 Seconds (9.4-12.1) H 01/29/18 04:26 Ferritin 21 ng/mL (10-120) 01/28/18 03:38 Total Bilirubin 0.4 mg/dL (0.3-1.0) 01/28/18 03:38 AST 18 Units/L (13-39) 01/28/18 03:38 ALT 6 Units/L (7-52) L 01/28/18 03:38 - ABG ABG results: PT/INR, D-dimer PT 17.6 Seconds (9.4-12.1) H 01/29/18 04:26 - Attending Attestation Iron deficiency anemia. Chronic anticoagulation with Warfarin. INR down from 3.5 with two doses of vitamin K. Recommend EGD and colonoscopy on Friday post checking INR I examined this patient and my medical decision-making was reviewed with the Resident Physician. I agree with the documented findings, disposition and treatment plan as described except to the extent set forth below.
[2018-01-27] MEDS: Metoprolol 100 MG TABLET PO SCH ×2 (14:03→20:46)
[2018-01-27] MEDS: Furosemide 40 MG TABLET PO SCH (14:03)
[2018-01-27] MEDS: Multivit/Ca/Min/Fe/FA 1 TAB TABLET PO SCH (14:03)
[2018-01-27] MEDS: amLODIPine 5 MG TABLET PO SCH (14:03)
[2018-01-27] MEDS: Cholecalciferol (D-3) 1,000 UNIT TABLET PO SCH (14:03)
[2018-01-27] MEDS ORDERED: SODIUM CHLORIDE/NAHCO3/KCL/PEG 4,000 ML SOLN.RECON PO ONE (17:00)
[2018-01-27] MEDS: Mirtazapine 15 MG TABLET PO SCH (20:46)
--- NOTE | 2018-01-27 21:40 | Cardiology Consult Note ---
Date of Encounter: 01/27/18 Time of Encounter: 21:38 Assessment and Plan (1) Persistent atrial fibrillation Current Visit: Yes Status: Acute Patient presents with broad complaints of weakness, upset stomach, which she attributes to starting decrease in earlier this year. Patient reports being intolerant to prior antiarrhythmics as well. Currently in atrial fibrillation with controlled ventricular response. Patient and family requesting to stop taking since due to fear of medicine causing symptoms. Anticoagulation has been held, INR reversed due to anemia, possible GI bleed. Given inability to anticoagulate and current atrial fibrillation, transitioning to a rate control strategy for now appears most appropriate. Continue metoprolol for now. We will start aspirin until anticoagulation can be resumed. Prior TTE demonstrates normal LV function. Further recommendations to follow. Discussion w patient/family: The assessment and plan as outlined above was discussed with the patient and/or family members who expressed understanding and agreement. All questions were answered. Thank you for involving us in the care of your patient. Please call with any questions. History of Present Illness Consult date: 01/27/18 Requesting physician: Tory Julian Consult reason: Atrial fibrillation Chief complaint: Weakness, abdominal discomfort/nausea History of present illness: Ms. Tavares is a 77 year old female who presents with a primary complaint of increasing weakness and abdominal discomfort. Patient states the symptoms have been present since starting Tikosyn a few months ago. She tripped her symptoms to this medication. Patient reports she was on multiple prior antiarrhythmic medications and has not tolerated them. Upon admission, INR elevated. No DB anemic. Anticoagulation has been held. GI evaluation is in progress. INR reversed. Patient scheduled for EGD and colonoscopy. Family is concerned about patient's progressive symptoms since starting to consent. Past Med Surg Social Fam HX - Past Medical History Medical history: arthritis, atrial fibrillation, cancer, cardiomyopathy, dementia, GERD, hyperlipidemia, hypertension, osteoporosis, syncope, TIA, other Additional medical history: Skin Cancer Psychiatric history: anxiety, depression - Past Surgical History Surgical History: appendectomy, cancer surgery, cataract, cholecystectomy, other Additional surgical history: distal radius fracture right, pacemaker - Social History Smoking Status: Never smoker Smokeless Tobacco Status: No Alcohol use: none Drug use: none - Family History Father Family Member Ethnicity: Non- Living Status: Hx Family Cancer: Yes Brother Family Member Ethnicity: Non- Living Status: Still Living Hx Family Neuromuscular Disorders: Yes (Parkinson's Disease) Sister Family Member Ethnicity: Non- Living Status: Hx Family Cancer: Yes (Breast) Mother Family Member Ethnicity: Non- Living Status: Hx Family Cardiac Disorders: Yes (Heart Disease) Hx Family Respiratory Disorders: No Hx Family Cancer: No Hx Family GI Disorders: No Hx Family Endocrine Disorder: No Hx Family Neuromuscular Disorders: No Hx Family Neurologic Disorders: No Hx Family HEENT Disorders: No Hx Family Autoimmune Disorders: No Medications and Allergies Cholecalciferol (Vitamin D3) [Vitamin D3] 5,000 unit PO DAILY 08/03/15 [History] Multivitamin/Iron/Folic Acid [Centrum Complete Multivit Tab] 1 tab PO DAILY [History] Atorvastatin [Lipitor] 40 mg PO QPM 08/18/15 [History] Warfarin [Coumadin] 5 mg PO SUTUWETHSA 10/13/15 [History] Warfarin [Coumadin] 7.5 mg PO MOFR 10/13/15 [History] Mirtazapine 7.5 mg PO DAILY PRN 12/19/15 [History] Furosemide [Lasix] 40 mg PO DAILY #30 tablet 12/22/15 [Rx] Amlodipine Besylate 5 mg PO DAILY 09/04/17 [History] DULoxetine [Cymbalta] 30 mg PO BID 09/04/17 [History] Gabapentin [Neurontin] 600 mg PO TID PRN 09/04/17 [History] Metoprolol [Lopressor] 100 mg PO BID #60 tablet 09/09/17 [Rx] Dofetilide [Tikosyn] 0.25 mg PO BID capsule 11/01/17 [Rx] GuaiFENesin ER [Mucinex] 600 mg PO DAILY PRN tbbp.12hr 11/01/17 [Rx] Lisinopril [Zestril] 2.5 mg PO DAILY #30 tablet 11/01/17 [Rx] Potassium Chloride 40 meq PO DAILY #30 tab.er.prt 11/01/17 [Rx] 3 Allergy/AdvReac Type Severity Reaction Status Date / Time Prazosin [From Minipress] Allergy Anaphylaxis Verified 09/04/17 11:20 cephalexin [From Keflex] AdvReac Vomiting Verified 09/04/17 11:20 All Systems Review: The remainder of the systems were reviewed and are negative - Constitutional Constitutional: anorexia, malaise, weakness - Gastrointestinal Gastrointestinal: abdominal pain Physical Examination Vital Signs, Last 4 Hours Pulse Ox 01/27/18 21:00 93 General: Conversant, No Apparent Distress HEENT: Atraumatic, Normocephaly, Mucus Membranes Moist Neck: No JVD Cardiac: Other (Irregular rate and rhythm.) Lungs: Normal Breath Sounds, No Wheeze, Rales, Rhonchi, Other (Shallow.) Neuro: Alert and responsive, No focal deficits noted Abdomen: Soft, Non-Tender Skin: No rashes noted on visualized skin Musculoskeletal: No Chest Wall Tenderness Extremities: No Clubbing, No Cyanosis, Other (Mild edema bilaterally.) Results 01/27/18 04:59 01/27/18 04:59 Lab Results 01/27/18 01/27/18 01/27/18 04:59 04:59 04:59 WBC 9.7 Hgb 9.9 L Hct 31.4 L Plt Count 391 INR 3.0 Sodium 135 L Potassium 3.8 Chloride 103 Carbon Dioxide 25 BUN 11 Creatinine 0.61 Glucose 99 Calcium 8.6 Total Bilirubin 0.4 AST 18 ALT 5 L Alkaline Phosphatase 73 - Imaging and Cardiology Echo: report reviewed - EKG Interpretation EKG results cardiology: personally reviewed Consult Discharge Plan - Plan Referrals: Jonathan Osman MD [Primary Care Provider] -
[2018-01-28 04:00] LABS: Basophils # 0.1 K/mcL (0.0-0.2); Basophils % 0.5 %; Eosinophils # 0.2 K/mcL (0.0-0.6); Eosinophils % 1.4 %; Hematocrit 32.3 % (35.3-44.9); Immature Granulocytes % 0.6 % (0-4); Lymphocytes # 1.7 K/mcL (0.6-4.6); Lymphocytes % 15.9 %; Mean Corpuscular Hemoglobin 29.6 pg (28.0-33.3); Mean Corpuscular Volume 95.6 fL (83.0-100.0); Mean Platelet Volume 9.5 fL (9.4-12.4); Monocytes # 0.7 K/mcL (0.0-1.3); Neutrophils # 7.8 K/mcL (1.6-8.9); Platelet Count 405 K/mcL (140-400); Red Blood Count 3.38 M/mcL (3.82-4.97); Red Cell Distribution Width 15.2 % (11.5-14.5); Segmented Neutrophils % 74.6 %
[2018-01-28 04:16] LABS: Alanine Aminotransferase 6 Units/L (7-52); Albumin 2.6 g/dL (3.5-5.7); Albumin/Globulin Ratio 0.8 (1.1-2.2); Alkaline Phosphatase 77 Units/L (34-104); Aspartate Amino Transferase 18 Units/L (13-39); BUN/Creatinine Ratio 15 (6-26); Bilirubin,Total 0.4 mg/dL (0.3-1.0); Blood Urea Nitrogen 10 mg/dL (8-23); Calcium 8.5 mg/dL (8.6-10.3); Carbon Dioxide 27 mEq/L (23-29); Chloride 103 mEq/L (98-107); Globulin 3.2 g/dL (2.4-3.5); Glucose 130 mg/dL (70-105); Osmolality,Calculated 283 (280-300); Potassium 3.8 mEq/L (3.5-5.1); Sodium 136 mEq/L (136-145); Total Protein 5.8 g/dL (6.4-8.9); eGFR For Non-African Americans > 60 (> 60)
[2018-01-28] MEDS: Pantoprazole 40 MG VIAL IVP SCH (06:38)
[2018-01-28] MEDS: Multivit/Ca/Min/Fe/FA 1 TAB TABLET PO SCH (08:12)
[2018-01-28] MEDS: Aspirin 325 MG TABLET PO SCH (08:12)
[2018-01-28] MEDS: Furosemide 40 MG TABLET PO SCH (08:12)
[2018-01-28] MEDS: amLODIPine 5 MG TABLET PO SCH (08:12)
[2018-01-28] MEDS: Metoprolol 100 MG TABLET PO SCH ×2 (08:12→21:02)
[2018-01-28] MEDS: Cholecalciferol (D-3) 1,000 UNIT TABLET PO SCH (08:12)
[2018-01-28] MEDS: Ascorbic Acid 500 MG TABLET PO SCH (08:13)
[2018-01-28 08:49] LABS: INR 2.3; Prothrombin Time 25.9 Seconds (9.4-12.1)
--- NOTE | 2018-01-28 08:53 | Internal Med Progress Note ---
Date of Encounter: 01/28/18 Time of Encounter: 08:47 - Assessment and plan (1) GI bleed Current Visit: Yes Status: Suspected Assessment and plan: Pt has a FOBT(+), suspected LGIB -suspected to be IDH in nature -Hemoglobin 10 today, 11 on admission. Baseline is usually 13-14 in October 2017 -pt is hypodermically stable -the patient denies seeing any blood in stool, blood when wiping, having any hemorrhoids, any vomit with blood Plan: -Warfarin is held, PT today is INR 2.3 -Continue to monitor PT/INR, recheck in AM -check H&H tomorrow -continue to avoid nsaids -GI to scope today EGD and colonoscopy, currently NPO for procedure -the pt is on Protonix 40mg BID Qualifiers: GI bleed type/associated pathology: unspecified gastrointestinal hemorrhage type Qualified Code(s): K92.2 - Gastrointestinal hemorrhage, unspecified (2) Atrial fibrillation Current Visit: No Status: Chronic Assessment and plan: Cardiology consulted -pt is s/p atrial ablation in october 2017 for a fib -she was put on Tikosyn as per cardiology but has been having side affects from the rx -pt asked to stop medication -last ECHO was 10/2017 and showed lVEF of 60% , normal LV chamber size/wall thickness/function Plan: -cardiology consult -anticoagulation is currently held to reverse INR and possible GI bleed -pt will have Tikosyn held -continue Lopressor and aspirin as per cardiology Qualifiers: Atrial fibrillation type: paroxysmal Qualified Code(s): I48.0 - Paroxysmal atrial fibrillation (3) Elevated INR Current Visit: Yes Status: Acute Assessment and plan: PT 42.3 , INR 3.7 on admission -day 2: 34.3, 3 -day 3 (today): 25.9, 2.3 Plan: -pt was given 10mg of vitamin K yesterday -will check PT/INR in the morning -Coumadin held (4) Iron deficiency anemia Current Visit: Yes Status: Acute Assessment and plan: Hemoglobin 11 on admission, 9.9 yesterday, 10 today -hemodynamically stable Fe 15 Fe sat 4% Transferrin 295 Plan: -will start pt on PO Ferrous sulfate one time daily with Vitamin C -GI to scope EGD and colonoscopy today to rule out LGIB Qualifiers: Iron deficiency anemia type: chronic blood loss Qualified Code(s): D50.0 - Iron deficiency anemia secondary to blood loss (chronic) (5) Hypertension Current Visit: No Status: Chronic Assessment and plan: BP 116/79 -on Amlodipine, lopressor, and zestril -continue home meds -well controlled Qualifiers: Hypertension type: essential hypertension Qualified Code(s): I10 - Essential (primary) hypertension (6) DVT prophylaxis Current Visit: Yes Status: Acute Assessment and plan: On SCD's - Time Spent With Patient Total time spent is greater than 50% in coordination of care (as documented) at patient's floor/unit and/or counseling patient: less than 15 minutes - Subjective Interval history: pt is seen at bedside. she has a past medical hx of a fib s/p atrial ablation, diastolic chf, rheumatoid arthritis, and hypertension. she came to the hospital today after feeling weak since october. -admission hemoglobin 11, today it is 10 -pt has a supratheraputic PT/INR , PT 25.9 and INR 2.3 -the pt has no complaints this morning -the pt denies chest pain, SOB, N/V/D, abd pain, hemetemesis, melena, or noticing any blood when she wipes -GI to scope this morning (EGD and colonoscopy) -cardiology consulted and will be stopping Tikosyn and continuing Metroprolol and aspirin until anticoagulation can be resumed Fluids - none electrolytes - all WNL Nutrition - NPO for egd/colonoscopy DVT prophylaxis - SCD's GI prophylaxis - on protonix 40mg BID - Constitutional Vitals: Temp Pulse Resp BP Pulse Ox 98.6 F 101 18 116/79 93 01/28/18 07:24 01/28/18 07:24 01/28/18 07:24 01/28/18 07:24 01/28/18 07:24 General appearance: Present: A&O X 3, pleasant - Head Head exam: Present: normal inspection - Neck Neck exam general surgery: Present: supple - Respiratory Respiratory exam: Present: CTAB - Cardiovascular Cardiovascular exam: Present: RRR, +S1, +S2 - GI/Abdominal GI/Abdominal exam: Present: soft, no peritoneal signs. Absent: tenderness - Neurological Exam Neurological exam: Present: alert, no focal deficits - Skin Skin exam: Present: intact Internal Medicine: Result - Labs CBC & Chem 7: 01/28/18 03:38 01/28/18 03:38 Labs: Short CBC 01/28/18 Range/Units 03:38 WBC 10.5 (4.3-11.1) K/mcL Hgb 10.0 L (11.5-15.4) g/dL Hct 32.3 L (35.3-44.9) % Plt Count 405 H (140-400) K/mcL Neutrophils # 7.8 (1.6-8.9) K/mcL BMP 01/28/18 03:38 Sodium 136 Potassium 3.8 Chloride 103 Carbon Dioxide 27 BUN 10 Creatinine 0.67 Glucose 130 H Calcium 8.5 L Liver Function 01/28/18 Range/Units 03:38 Total Bilirubin 0.4 (0.3-1.0) mg/dL AST 18 (13-39) Units/L ALT 6 L (7-52) Units/L Alkaline Phosphatase 77 (34-104) Units/L Albumin 2.6 L (3.5-5.7) g/dL - ABG Interpretation ABG results: PT/INR, D-dimer PT 34.3 Seconds (9.4-12.1) H 01/27/18 04:59 - VTE Documentation of Mechanical Device: Intermittent pneumatic compression device Consult Discharge Plan - Plan Referrals: Jonathan Osman MD [Primary Care Provider] -
--- NOTE | 2018-01-28 11:14 | Anesthesia Evaluation PreOp ---
Date of Encounter: 01/28/18 Time of Encounter: 13:44 - Past History Planned Operation: EGD/colonoscopy Cardiac History: HTN, Hyperlipidemia, Arrhythmia (resistant to treatment), Pacemaker/ICD, Other (cardiomyopathy) Pulmonary History: Denies Any Significant HX STREET [employer] History: TIA, Syncope, Other (dementia dx on chart but patient answers questions appropriately and shows no signs of dementia. Family reports she signs all her own papers per nursing report) Other Medical History: Denies Any Significant HX Anesthesia History: No Prior Anesthetic Complications, Past Anesthesia (appy, zachary, ortho) Alcohol Use: none Drug use: none Medications and Allergies Cholecalciferol (Vitamin D3) [Vitamin D3] 5,000 unit PO DAILY 08/03/15 [History] Multivitamin/Iron/Folic Acid [Centrum Complete Multivit Tab] 1 tab PO DAILY [History] Atorvastatin [Lipitor] 40 mg PO QPM 08/18/15 [History] Warfarin [Coumadin] 5 mg PO SUTUWETHSA 10/13/15 [History] Warfarin [Coumadin] 7.5 mg PO MOFR 10/13/15 [History] Mirtazapine 7.5 mg PO DAILY PRN 12/19/15 [History] Furosemide [Lasix] 40 mg PO DAILY #30 tablet 12/22/15 [Rx] Amlodipine Besylate 5 mg PO DAILY 09/04/17 [History] DULoxetine [Cymbalta] 30 mg PO BID 09/04/17 [History] Gabapentin [Neurontin] 600 mg PO TID PRN 09/04/17 [History] Metoprolol [Lopressor] 100 mg PO BID #60 tablet 09/09/17 [Rx] Dofetilide [Tikosyn] 0.25 mg PO BID capsule 11/01/17 [Rx] GuaiFENesin ER [Mucinex] 600 mg PO DAILY PRN tbbp.12hr 11/01/17 [Rx] Lisinopril [Zestril] 2.5 mg PO DAILY #30 tablet 11/01/17 [Rx] Potassium Chloride 40 meq PO DAILY #30 tab.er.prt 11/01/17 [Rx] 3 Allergy/AdvReac Type Severity Reaction Status Date / Time Prazosin [From Minipress] Allergy Anaphylaxis Verified 09/04/17 11:20 cephalexin [From Keflex] AdvReac Vomiting Verified 09/04/17 11:20 - Meds/Allergy Pre-op Review Medications Reviewed: Yes Allergies Reviewed: Yes Beta Blockers on Current Med List: Yes If Beta Blockers taken, Date/Time (Last Dose taken): today 811 Anesthesia Results - Labs 01/28/18 03:38 01/28/18 03:38 - Imaging EKG: report reviewed (ELECTRONIC ATRIAL PACEMAKER NONSPECIFIC T-WAVE ABNORMALITY ABNORMAL RHYTHM ECG) Additional studies: echo 2018: Impressions: LVEF 60%. Normal LV chamber size, wall thickness and function. Indeterminate diastolic function. Normal right ventricular structure and function. Mild-moderate mitral regurgitation. Mild tricuspid regurgitation. Severe pulmonary hypertension. A device lead was visualized in the right atrium and right ventricle. Anesthesia Exam Selected Entries 01/28/18 07:24 Temperature 98.6 F Pulse Rate 101 Respiratory Rate 18 Blood Pressure 116/79 O2 Sat by Pulse Oximetry 93 Oxygen Delivery Method Nasal Cannula Weight: 80kg - HEENT Pupil (Motor): EOMI Mallampati: II Teeth: Missing Oral Opening: Greater than 3 - STRE[address] [employer] LOC: Oriented STREET [employer] Motor: Normal RUE, Normal LUE, Normal RLE, Normal LLE, Normal Face STRE[employer] Sensory: Normal: RUE, LUE, RLE, LLE, Face - Cardiac Rhythm: Regular Murmur: None - Pulmonary Breath Sounds: bilateral Clear Respiratory Effort: Symmetrical Anesthesia Assess/Plan ASA Score: 3 Modified Glide Scale for Level of Consciousness: Cooperative, oriented, and tranquil Anesthetic Plan: MAC Monitoring Plan: Standard Monitors (agrees to MAC) Recovery Plan: Other
--- NOTE | 2018-01-28 11:14 | Event Note ---
Date of Encounter: 01/28/18 Time of Encounter: 11:12 Patient was seen and examined. I agree with the progress note as written by the resident physician. Patient was admitted with weakness and found to have anemia and a positive FOBT. INR was 3.7 on admission and is down to 2.3 after vitamin K given. The patient has been feeling weak and presyncopal episodes. She was placed on Tikosyn in October and she associated her symptoms with the start of that. She is status post ablation for A. fib back pain. Hemoglobin was 11 on admission and has been around 10 since. Hemoglobin was 14.4 in October. GEN: NAD CVS: RRR. S1, S2, No m/r/g RESP: CTAB ABD: Soft, NT, ND, +BS EXT: No edema. 2+ DP. No rashes NEURO: Nonfocal Patient going for scopes today f/u on iron studies Need to have a discussion about Coumadin/anticoagulation prior to d/c. Likely just ASA cardiology is following since patient is on anticoagulation and on Tikosyn Tikosyn d/c and plan is for rate controlling agents per cardiology. Her feelings of weakness and presyncopal episodes are likely to be from gradual decrease in her hemoglobin Normal TSH c/w home meds SCDs
--- NOTE | 2018-01-28 11:34 | Cardiology Progress Note ---
Date of Encounter: 01/28/18 Time of Encounter: 11:31 Assessment and Plan (1) Persistent atrial fibrillation Current Visit: Yes Status: Acute Presented with complaints of weakness, upset stomach, which she attributes to starting Tikosyn earlier this year. Patient reports being intolerant to prior antiarrhythmics as well. Currently in atrial fibrillation with controlled ventricular response. Patient and family requested to stop taking Tikosyn due to fear of medicine causing symptoms. Stopped Tikosyn yesterday. Anticoagulation has been held, INR reversed due to anemia, possible GI bleed. Given inability to anticoagulate and current atrial fibrillation, rate control strategy for now appears most appropriate. Continue metoprolol for rate control. Started aspirin until anticoagulation can be resumed. Would recommend resuming anticoagulation once felt safe from a GI standpoint. Prior TTE demonstrates normal LV function. Cardiology signing off. Reconsult PRN. Will coordinate outpt follow-up. Discussion w patient/family: The assessment and plan as outlined above was discussed with the patient and/or family members who expressed understanding and agreement. All questions were answered. Thank you for involving us in the care of your patient. Please call with any questions. I will discuss all the above with Dr. Villalta and make changes as necessary. Subjective Interval history: Pt reports overall feeling better today than yesterday. Fatigue has mildly improved. She denies chest pain or dyspnea. Objective Vital Signs, Last 4 Hours Temp Pulse Resp BP Pulse Ox 01/28/18 11:23 98.4 F 91 18 110/64 97 Vital Signs Temp Pulse Resp BP Pulse Ox 01/28/18 11:23 98.4 F 91 18 110/64 97 01/28/18 07:24 98.6 F 101 18 116/79 93 01/28/18 05:12 76 15 103/62 98 01/27/18 22:23 98.2 F 97 16 130/76 98 01/27/18 21:00 93 01/27/18 17:11 98.3 F 73 16 115/79 92 Intake and Output 01/27/18 01/28/18 01/28/18 23:59 07:59 15:59 Intake Total 1200 / 1200 Output Total 1100 / 1100 0 / 0 Balance 100 / 100 0 / 0 Intake: Oral 1200 / 1200 Output: Urine 1100 / 1100 0 / 0 Other: Meal Dinner Stool Size Moderate Stool Consistency liquid Stool Color Brown # Voids 1 Weight 80.1 kg Blood Glucose* 104 126 120 Patient Weight 01/28/18 23:59 Weight 80.1 kg General: Conversant, No Apparent Distress HEENT: Atraumatic, Normocephaly, Mucus Membranes Moist Neck: No JVD, Normal carotid pulses Cardiac: Other (irregularly irregular) Lungs: Normal Breath Sounds, No Wheeze, Rales, Rhonchi Neuro: Alert and responsive, No focal deficits noted Abdomen: Soft, Non-Tender Skin: No rashes noted on visualized skin Musculoskeletal: No Chest Wall Tenderness Extremities: Other (moderate LE edema) Results 01/28/18 03:38 01/28/18 03:38 Lab Results 01/28/18 01/28/18 01/28/18 03:38 03:38 08:31 WBC 10.5 Hgb 10.0 L Hct 32.3 L Plt Count 405 H INR 2.3 Sodium 136 Potassium 3.8 Chloride 103 Carbon Dioxide 27 BUN 10 Creatinine 0.67 Glucose 130 H Calcium 8.5 L Total Bilirubin 0.4 AST 18 ALT 6 L Alkaline Phosphatase 77 Short CBC 01/28/18 Range/Units 03:38 WBC 10.5 (4.3-11.1) K/mcL Hgb 10.0 L (11.5-15.4) g/dL Hct 32.3 L (35.3-44.9) % Plt Count 405 H (140-400) K/mcL Neutrophils # 7.8 (1.6-8.9) K/mcL BMP 01/28/18 Range/Units 03:38 Sodium 136 (136-145) mEq/L Potassium 3.8 (3.5-5.1) mEq/L Chloride 103 (98-107) mEq/L Carbon Dioxide 27 (23-29) mEq/L BUN 10 (8-23) mg/dL Creatinine 0.67 (0.60-1.20) mg/dL Glucose 130 H (70-105) mg/dL Calcium 8.5 L (8.6-10.3) mg/dL Liver Function 01/28/18 Range/Units 03:38 Total Bilirubin 0.4 (0.3-1.0) mg/dL AST 18 (13-39) Units/L ALT 6 L (7-52) Units/L Alkaline Phosphatase 77 (34-104) Units/L Albumin 2.6 L (3.5-5.7) g/dL Active Medications Acetaminophen (Tylenol) 650 mg PO Q6HR PRN PRN Reason: Fever Stop: 07/28/18 18:25 Last Admin: 01/26/18 22:18 Dose: 650 mg Amlodipine Besylate (Norvasc) 5 mg PO DAILY [facility] Stop: 07/29/18 09:01 Last Admin: 01/28/18 08:12 Dose: 5 mg Ascorbic Acid (Vitamin C) 250 mg PO DAILY [facility] Stop: 07/30/18 09:01 Last Admin: 01/28/18 08:13 Dose: 250 mg Aspirin (Aspirin) 325 mg PO DAILY [facility] Stop: 07/30/18 09:01 Last Admin: 01/28/18 08:12 Dose: 325 mg Atorvastatin Calcium (Lipitor) 40 mg PO QPM [facility] Stop: 07/28/18 18:01 Last Admin: 01/27/18 18:35 Dose: Not Given Duloxetine HCl (Cymbalta) 30 mg PO BID [facility] Stop: 07/28/18 21:01 Last Admin: 01/28/18 08:12 Dose: 30 mg Ferrous Sulfate (Ferrous Sulfate) 325 mg PO DAILY@0800 [facility] Stop: 07/30/18 08:01 Last Admin: 01/28/18 08:13 Dose: 325 mg Furosemide (Lasix) 40 mg PO DAILY [facility] Stop: 07/29/18 09:01 Last Admin: 01/28/18 08:12 Dose: 40 mg Guaifenesin (Mucinex) 600 mg PO DAILY PRN PRN Reason: Congestion Stop: 07/28/18 17:39 Lisinopril (Zestril) 2.5 mg PO DAILY [facility] PRN Reason: Protocol Stop: 07/29/18 09:01 Last Admin: 01/28/18 08:24 Dose: Not Given Metoprolol Tartrate (Lopressor) 100 mg PO BID [facility] Stop: 07/28/18 21:01 Last Admin: 01/28/18 08:12 Dose: 100 mg Mirtazapine (Remeron) 7.5 mg PO HS [facility] Stop: 07/28/18 21:01 Last Admin: 01/27/18 20:46 Dose: Not Given Multivitamins/Calcium (Thera M Plus) 1 tab PO DAILY [facility] Stop: 07/29/18 09:01 Last Admin: 01/28/18 08:12 Dose: 1 tab Naloxone HCl (Narcan) 0.4 mg IVP Q2MIN PRN PRN Reason: SEE COMMENTS Stop: 07/28/18 16:20 Oxycodone HCl (Roxicodone) 2.5 mg PO Q6HR PRN; Protocol PRN Reason: Severe Pain Stop: 07/28/18 18:45 Last Admin: 01/27/18 08:47 Dose: 2.5 mg Pantoprazole Sodium (Protonix) 40 mg IVP Q12HR [facility] Stop: 07/28/18 18:01 Last Admin: 01/28/18 06:38 Dose: 40 mg Potassium Chloride (Potassium Chloride) 40 meq PO DAILY [facility] Stop: 07/29/18 09:01 Last Admin: 01/28/18 08:13 Dose: 40 meq Vitamin D (Vitamin D) 1,000 unit PO DAILY [facility] Stop: 07/29/18 09:01 Last Admin: 01/28/18 08:12 Dose: 1,000 unit - EKG Interpretation EKG results cardiology: other (12 hr tele AVG HR 91, A-Fib) - VTE Documentation of Mechanical Device: Intermittent pneumatic compression device Consult Discharge Plan - Plan Referrals: Jonathan Osman MD [Primary Care Provider] -
[2018-01-28 12:40] LABS: Ferritin 21 ng/mL (10-120)
[2018-01-28] MEDS ORDERED: Lidocaine -MPF 2% 2 ML VIAL ONE (13:22)
[2018-01-28] MEDS ORDERED: 0.9 % Sodium Chloride 500 ML IVC SCH (14:00)
[2018-01-28] MEDS ORDERED: Propofol 500 MG/50 ML INFUS..BTL ONE (14:06)
[2018-01-28] MEDS: Sucralfate 1 GM TABLET PO SCH ×2 (16:25→21:02)
[2018-01-28] MEDS: *HR* OxyCODONE Immed Rel 5 MG TABLET PO PRN (19:16)
[2018-01-28] MEDS: Gabapentin 300 MG CAPSULE PO SCH (21:02)
[2018-01-28] MEDS: Mirtazapine 15 MG TABLET PO SCH (21:03)
[2018-01-29 04:49] LABS: Hematocrit 35.6 % (35.3-44.9); Hemoglobin 11.3 g/dL (11.5-15.4)
[2018-01-29 04:56] LABS: INR 1.6; Prothrombin Time 17.6 Seconds (9.4-12.1)
--- NOTE | 2018-01-29 09:44 | Discharge Summary ---
<Rei Fortune S - Last Filed: 01/29/18 12:41> - NOTES TO OUTPATIENT PROVIDER Notes to Outpatient Provider: Pt to follow up with GI in 2 weeks as to whether she should restart Coumadin. -for now d/c on Metroprolol and Aspirin 325mg PO daily Date of Encounter: 01/29/18 Time of Encounter: 08:30 - Discharge Diagnosis (1) GI bleed Priority: Primary Status: Suspected Qualifiers: GI bleed type/associated pathology: unspecified gastrointestinal hemorrhage type Qualified Code(s): K92.2 - Gastrointestinal hemorrhage, unspecified (2) Atrial fibrillation Priority: Secondary Status: Chronic Qualifiers: Atrial fibrillation type: paroxysmal Qualified Code(s): I48.0 - Paroxysmal atrial fibrillation (3) Elevated INR Priority: Secondary Status: Resolved (4) Iron deficiency anemia Priority: Secondary Status: Chronic Qualifiers: Iron deficiency anemia type: chronic blood loss Qualified Code(s): D50.0 - Iron deficiency anemia secondary to blood loss (chronic) (5) Hypertension Priority: Secondary Status: Chronic Qualifiers: Hypertension type: essential hypertension Qualified Code(s): I10 - Essential (primary) hypertension (6) DVT prophylaxis Priority: Secondary Status: Acute Hospital course: Ms. Tavares is a 77 year old female who was admitted for weakness. She had been experiencing weakness for about 4 mos ever since being put on Tikosyn by cardiology. She is s/p atrial ablation and and has a PMH of htn, rheumatoid arthritis, and diastolic CHF. Pt had a hemoglobin of 11 on admission, her baseline is usually 13-14. -the patient remained hemodynamically stable throughout her stay here -she had a FOBT(+) -the patient was seen by GI and had an EGD and colonoscopy -likely contributing to her IDH, Fe 15 and fe sat 4%. The pt should take ferrous sulfate supplement with vitamin c Supratheraputic INR on admission -PT 42.3, INR 3.7 on admission -Coumadin was held and her PT decreased to 34.3 and then 25.9 -today INR is 17.6, INR 1.6 -the patient was given vitamin K -currently Coumadin is held and pt is on aspirin and metroprolol, as per cardiology -she will be discharged on Aspirin 325mg PO and will follow up with gastro in 2 weeks for further recommendations for coumadin Cardiology saw for her a fib -the had her Tikosyn discontinued -last ECHO showed a LVF of 60%, normal LV size -cardiology continued Lopressor and aspirin as per cardiology Discharge discussed with: patient, nurse Time spent discussing smoking cessation with patient: 3 to 10 minutes - Time Spent with Patient Total time spent providing and/or coordinating discharge services: Less than 30 minutes - Discharge Medications Prescriptions: Aspirin 325 mg PO DAILY 30 Days #30 tablet Ferrous Sulfate 325 mg PO DAILY@0800 30 Days #30 tablet Home Medications: Cholecalciferol (Vitamin D3) [Vitamin D3] 5,000 unit PO DAILY 08/03/15 [History] Atorvastatin [Lipitor] 40 mg PO QPM 08/18/15 [History] Mirtazapine 7.5 mg PO DAILY PRN 12/19/15 [History] Furosemide [Lasix] 40 mg PO DAILY #30 tablet 12/22/15 [Rx] Amlodipine Besylate 5 mg PO DAILY 09/04/17 [History] DULoxetine [Cymbalta] 30 mg PO BID 09/04/17 [History] Gabapentin [Neurontin] 600 mg PO TID PRN 09/04/17 [History] Metoprolol [Lopressor] 100 mg PO BID #60 tablet 09/09/17 [Rx] GuaiFENesin ER [Mucinex] 600 mg PO DAILY PRN tbbp.12hr 11/01/17 [Rx] Lisinopril [Zestril] 2.5 mg PO DAILY #30 tablet 11/01/17 [Rx] Potassium Chloride 40 meq PO DAILY #30 tab.er.prt 11/01/17 [Rx] Aspirin 325 mg PO DAILY 30 Days #30 tablet 01/29/18 [Rx] Ferrous Sulfate 325 mg PO DAILY@0800 30 Days #30 tablet 01/29/18 [Rx] Multivit/Ca/Min/Fe/FA [Thera M Plus] 1 tab PO DAILY tablet 01/29/18 [Rx] Allergies/Adverse Reactions: 3 Allergy/AdvReac Type Severity Reaction Status Date / Time Prazosin [From Minipress] Allergy Anaphylaxis Verified 09/04/17 11:20 cephalexin [From Keflex] AdvReac Vomiting Verified 09/04/17 11:20 Date of admission: 01/26/18 16:13 Primary care physician: Jonathan Osman MD Consults: 01/26/18 16:21 Consult to Gastroenterology [CONS] Routine Consulting Provider: Gastroenterology [facility] Reason for Consult: FOBT(+) Call Completed: No 01/27/18 10:22 Consult to Cardiology [CONS] Routine Comment: Consulting Provider: Cardiology [facility] Reason for Consult: a fib Call Completed: Yes 01/28/18 15:00 Consult to Occupational Therapy [CONS] Routine Comment: Evaluate, develop and implement POC Reason for Consult: fatigue, deconditioning Does patient have active BEDREST order?: No Is patient medically & hemodynamically stable?: Yes Consult to Physical Therapy [CONS] Routine Comment: Evaluate, develop and implement POC Reason for Consult: fatigue, deconditioning Does patient have active BEDREST order?: No Is patient medically & hemodynamically stable?: Yes Discharging clinician: Rei Fortune Anticipated date of discharge: 01/29/18 - Constitutional Vitals: Temp Pulse Resp BP Pulse Ox 98.5 F 82 16 126/69 96 01/29/18 07:18 01/29/18 07:18 01/29/18 07:18 01/29/18 07:18 01/29/18 07:18 General appearance: Present: A&O X 3, pleasant - Respiratory Respiratory exam: Present: CTAB - Cardiovascular Cardiovascular exam: Present: RRR, +S1, +S2 - GI/Abdominal GI/Abdominal exam: Present: normal bowel sounds, soft, no peritoneal signs - Skin Skin exam: Present: intact - Patient Status Disposition: Home, Self-Care Condition: Good Functional capacity at discharge: independent ambulation Overall status at discharge: patient is progressing back to baseline - Discharge Instructions Instructions: Atrial Fibrillation (DC), Gastrointestinal Bleeding (DC) Follow Up With: Andrew Paul MD [Partnered Physician] - 02/12/18 (Follow up for restarting Coumadin) Jonathan Osman MD [Primary Care Provider] - 02/02/18 1:00 pm (WITH [facility]) Fernie Cruz MD [Partnered Physician] - (THEIR OFFICE WILL CALL YOU WITH APPT DATE & TIME) Additional Instructions: WE ELECTRONICALLY SENT YOUR PRESCRIPTIONS TO [facility]. GET YOUR BLOOD DRAWN FOR PT/INR (COUMADIN LEVEL) IN 2 DAYS. - Diet and Activity Activity: increase activity as tolerated Diet: low fat, low cholesterol - VTE Documentation of Mechanical Device: Intermittent pneumatic compression device <Tory Julian M - Last Filed: 01/29/18 14:27> Date of Encounter: 01/29/18 - Discharge Diagnosis (1) Hypertension Status: Chronic Qualifiers: Hypertension type: essential hypertension Qualified Code(s): I10 - Essential (primary) hypertension (2) Atrial fibrillation Status: Chronic Qualifiers: Atrial fibrillation type: paroxysmal Qualified Code(s): I48.0 - Paroxysmal atrial fibrillation (3) Elevated INR Status: Resolved (4) GI bleed Status: Suspected Qualifiers: GI bleed type/associated pathology: unspecified gastrointestinal hemorrhage type Qualified Code(s): K92.2 - Gastrointestinal hemorrhage, unspecified (5) Iron deficiency anemia Status: Chronic Qualifiers: Iron deficiency anemia type: chronic blood loss Qualified Code(s): D50.0 - Iron deficiency anemia secondary to blood loss (chronic) (6) DVT prophylaxis Status: Acute Hospital course: Ms. Tavares is a 77 year old female - Time Spent with Patient Total time spent providing and/or coordinating discharge services: Date of admission: 01/26/18 16:13 Primary care physician: Jonathan Osman MD Consults: 01/26/18 16:21 Consult to Gastroenterology [CONS] Routine Consulting Provider: Gastroenterology [facility] Reason for Consult: FOBT(+) Call Completed: No 01/27/18 10:22 Consult to Cardiology [CONS] Routine Comment: Consulting Provider: Nigel Buck Reason for Consult: a fib Call Completed: Yes 01/28/18 15:00 Consult to Physical Therapy [CONS] Routine Comment: Evaluate, develop and implement POC Reason for Consult: fatigue, deconditioning Does patient have active BEDREST order?: No Is patient medically & hemodynamically stable?: Yes - Constitutional Vitals: Temp Pulse Resp BP Pulse Ox 97.6 F 84 16 125/61 94 01/29/18 11:21 01/29/18 11:21 01/29/18 11:21 01/29/18 11:21 01/29/18 11:21 - Attending Attestation Patient was seen and examined. I agree with the discharge summary as dictated above by the resident physician. Discharge plans and recommendations were made under my direct supervision.
[2018-01-29] MEDS: Sucralfate 1 GM TABLET PO SCH ×2 (10:38→10:47)
[2018-01-29] MEDS: Metoprolol 100 MG TABLET PO SCH (10:46)
[2018-01-29] MEDS: amLODIPine 5 MG TABLET PO SCH (10:46)
[2018-01-29] MEDS: Cholecalciferol (D-3) 1,000 UNIT TABLET PO SCH (10:47)
[2018-01-29] MEDS: Furosemide 40 MG TABLET PO SCH (10:47)
[2018-01-29] MEDS: Ascorbic Acid 500 MG TABLET PO SCH (10:48)
[2018-01-29] MEDS: Gabapentin 300 MG CAPSULE PO SCH (10:48)
[2018-01-29] MEDS: Aspirin 325 MG TABLET PO SCH (10:48)
[2018-01-29] MEDS: Multivit/Ca/Min/Fe/FA 1 TAB TABLET PO SCH (10:50)
[2018-01-29 11:25] VITALS: BP 125/61
== END 2018-01-29 15:22 | disposition home or self-care (01) ==
LOC: EMEROO 11:07 → 2NENU 11:07
PROVIDERS: ADMIT Student in an Organized Health Care Education/Training Program; ATTEND Student in an Organized Health Care Education/Training Program

== ENCOUNTER 2019-04-07 17:14 | Inpatient (IN) ==
[2019-04-07] MEDS ORDERED: *HR* FentaNYL (PF) 100 MCG/2 ML VIAL IVP ONE (17:21)
[2019-04-07 18:06] LABS: Basophils % 0.3 %; Eosinophils # 0.1 K/mcL (0.0-0.6); Eosinophils % 0.5 %; Hematocrit 44.5 % (35.3-44.9); Hemoglobin 14.7 g/dL (11.5-15.4); Immature Granulocytes % 0.3 % (0-4); Lymphocytes # 1.5 K/mcL (0.6-4.6); Lymphocytes % 13.8 %; Mean Corpuscular Volume 99.8 fL (83.0-100.0); Mean Platelet Volume 10.3 fL (9.4-12.4); Monocytes % 9.1 %; Neutrophils # 8.3 K/mcL (1.6-8.9); Platelet Count 234 K/mcL (140-400); Red Blood Count 4.46 M/mcL (3.82-4.97); Red Cell Distribution Width 12.3 % (11.5-14.5); White Blood Count 10.9 K/mcL (4.3-11.1)
[2019-04-07 18:28] LABS: Alanine Aminotransferase 37 Units/L (7-52); Albumin 3.9 g/dL (3.5-5.7); Albumin/Globulin Ratio 1.3 (1.1-2.2); Alkaline Phosphatase 112 Units/L (34-104); Aspartate Amino Transferase 48 Units/L (13-39); BUN/Creatinine Ratio 21 (6-26); Bilirubin,Direct 0.2 mg/dL (0.0-0.2); Bilirubin,Indirect 0.5 mg/dL (0.0-1.2); Bilirubin,Total 0.7 mg/dL (0.3-1.0); Blood Urea Nitrogen 16 mg/dL (8-23); Calcium 9.8 mg/dL (8.6-10.3); Carbon Dioxide 28 mEq/L (23-29); Chloride 103 mEq/L (98-107); Globulin 3.1 g/dL (2.4-3.5); Glucose 122 mg/dL (70-105); Lipase 40 Units/L (11-82); Osmolality,Calculated 282 (280-300); Potassium 3.9 mEq/L (3.5-5.1); Sodium 135 mEq/L (136-145); eGFR For African Americans > 60 (> 60); eGFR For Non-African Americans > 60 (> 60)
[2019-04-07 18:44] LABS: Prothrombin Time 55.4 Seconds (9.4-12.1)
[2019-04-07 18:45] LABS: INR 4.9
[2019-04-07 19:29] LABS: Bilirubin,Urine Small (Negative); Blood,Urine Small (Negative); Clarity,Urine Cloudy (Clear); Color,Urine Dark Yellow (Yellow); Glucose,Urine (UA) Normal (Normal); Ketones,Urine Negative (Negative); Leukocyte Esterase,Urine Large (Negative); Nitrite,Urine Negative (Negative); Protein,Urine 30 mg/dL (Neg-Trace); Specific Gravity,Urine > 1.030 (1.010-1.025); Urobilinogen,Urine Normal (Normal)
[2019-04-07 19:34] LABS: Bacteria,Urine None Seen per hpf (None-Few); Hyaline Casts,Urine None Seen per lpf (None-Few); Squamous Epithelial Cell,Urine Many per lpf (None-Few); WBC,Urine TNTC per hpf (0-3)
[2019-04-07] MEDS ORDERED: Naloxone 0.4 MG/ML INJ IVP PRN (22:45)
[2019-04-07] MEDS ORDERED: Ondansetron ODT 4 MG TAB.RAPDIS SL PRN (22:45)
[2019-04-07] MEDS: Metoprolol 100 MG TABLET PO SCH (23:03)
[2019-04-08 04:58] LABS: Basophils % 0.3 %; Eosinophils % 0.5 %; Hemoglobin 13.5 g/dL (11.5-15.4); Immature Granulocytes % 0.3 % (0-4); Lymphocytes # 1.4 K/mcL (0.6-4.6); Lymphocytes % 17.6 %; Mean Corpuscular HGB Conc 32.9 g/dL (31.6-35.5); Mean Corpuscular Hemoglobin 32.5 pg (28.0-33.3); Mean Corpuscular Volume 98.8 fL (83.0-100.0); Mean Platelet Volume 9.9 fL (9.4-12.4); Monocytes # 0.8 K/mcL (0.0-1.3); Neutrophils # 5.7 K/mcL (1.6-8.9); Platelet Count 207 K/mcL (140-400); Red Blood Count 4.15 M/mcL (3.82-4.97); Red Cell Distribution Width 12.2 % (11.5-14.5); Segmented Neutrophils % 71.3 %
[2019-04-08 05:05] LABS: Prothrombin Time 34.3 Seconds (9.4-12.1)
[2019-04-08] MEDS: Levothyroxine 25 MCG TABLET PO SCH (05:14)
[2019-04-08 05:18] LABS: Alanine Aminotransferase 56 Units/L (7-52); Albumin 3.5 g/dL (3.5-5.7); Albumin/Globulin Ratio 1.4 (1.1-2.2); Alkaline Phosphatase 113 Units/L (34-104); Aspartate Amino Transferase 94 Units/L (13-39); BUN/Creatinine Ratio 20 (6-26); Bilirubin,Total 1.1 mg/dL (0.3-1.0); Blood Urea Nitrogen 14 mg/dL (8-23); Calcium 9.1 mg/dL (8.6-10.3); Carbon Dioxide 26 mEq/L (23-29); Chloride 104 mEq/L (98-107); Globulin 2.5 g/dL (2.4-3.5); Glucose 123 mg/dL (70-105); Magnesium 1.9 mg/dL (1.6-2.6); Osmolality,Calculated 286 (280-300); Phosphorous 3.8 mg/dL (2.7-4.5); Sodium 137 mEq/L (136-145); eGFR For African Americans > 60 (> 60); eGFR For Non-African Americans > 60 (> 60)
[2019-04-08 05:22] LABS: Troponin I < 0.03 ng/mL (< 0.04)
[2019-04-08] MEDS: Furosemide 40 MG TABLET PO SCH (07:54)
[2019-04-08] MEDS: Metoprolol 100 MG TABLET PO SCH ×2 (07:54→23:13)
[2019-04-08 08:16] LABS: Creatine Kinase 27 Units/L (30-223)
[2019-04-09 01:38] LABS: Basophils % 0.3 %; Eosinophils # 0.1 K/mcL (0.0-0.6); Hematocrit 43.3 % (35.3-44.9); Hemoglobin 13.8 g/dL (11.5-15.4); Immature Granulocytes % 0.3 % (0-4); Lymphocytes # 1.4 K/mcL (0.6-4.6); Mean Corpuscular HGB Conc 31.9 g/dL (31.6-35.5); Mean Corpuscular Hemoglobin 32.5 pg (28.0-33.3); Mean Corpuscular Volume 101.9 fL (83.0-100.0); Mean Platelet Volume 10.6 fL (9.4-12.4); Monocytes # 0.9 K/mcL (0.0-1.3); Monocytes % 11.6 %; Neutrophils # 5.6 K/mcL (1.6-8.9); Platelet Count 232 K/mcL (140-400); Red Blood Count 4.25 M/mcL (3.82-4.97); Red Cell Distribution Width 12.3 % (11.5-14.5); Segmented Neutrophils % 69.8 %
[2019-04-09 01:43] LABS: Prothrombin Time 22.4 Seconds (9.4-12.1)
[2019-04-09 01:56] LABS: Alanine Aminotransferase 58 Units/L (7-52); Albumin 3.5 g/dL (3.5-5.7); Albumin/Globulin Ratio 1.2 (1.1-2.2); Alkaline Phosphatase 139 Units/L (34-104); Aspartate Amino Transferase 54 Units/L (13-39); BUN/Creatinine Ratio 21 (6-26); Bilirubin,Total 0.9 mg/dL (0.3-1.0); Blood Urea Nitrogen 16 mg/dL (8-23); Calcium 9.4 mg/dL (8.6-10.3); Carbon Dioxide 28 mEq/L (23-29); Chloride 102 mEq/L (98-107); Glucose 106 mg/dL (70-105); Osmolality,Calculated 288 (280-300); Potassium 3.8 mEq/L (3.5-5.1); Sodium 138 mEq/L (136-145); Total Protein 6.5 g/dL (6.4-8.9); eGFR For African Americans > 60 (> 60); eGFR For Non-African Americans > 60 (> 60)
[2019-04-09] MEDS: Levothyroxine 25 MCG TABLET PO SCH (06:05)
[2019-04-09] MEDS: Furosemide 40 MG TABLET PO SCH (09:02)
[2019-04-09] MEDS: amLODIPine 5 MG TABLET PO SCH (09:02)
[2019-04-09] MEDS: Metoprolol 100 MG TABLET PO SCH ×2 (09:02→21:16)
[2019-04-09] MEDS: Cholecalciferol (D-3) 1,000 UNIT (25MCG) TABLET PO SCH (09:03)
[2019-04-10] MEDS: Levothyroxine 25 MCG TABLET PO SCH (06:19)
[2019-04-10 07:17] LABS: Basophils % 0.3 %; Eosinophils # 0.1 K/mcL (0.0-0.6); Eosinophils % 1.8 %; Hematocrit 44.3 % (35.3-44.9); Hemoglobin 14.3 g/dL (11.5-15.4); Immature Granulocytes % 0.3 % (0-4); Lymphocytes # 1.5 K/mcL (0.6-4.6); Lymphocytes % 21.3 %; Mean Corpuscular HGB Conc 32.3 g/dL (31.6-35.5); Mean Corpuscular Hemoglobin 33.2 pg (28.0-33.3); Mean Corpuscular Volume 102.8 fL (83.0-100.0); Monocytes # 0.6 K/mcL (0.0-1.3); Monocytes % 8.1 %; Neutrophils # 4.8 K/mcL (1.6-8.9); Platelet Count 252 K/mcL (140-400); Red Blood Count 4.31 M/mcL (3.82-4.97); Red Cell Distribution Width 11.9 % (11.5-14.5); Segmented Neutrophils % 68.2 %
[2019-04-10 07:26] LABS: INR 1.4; Prothrombin Time 16.4 Seconds (9.4-12.1)
[2019-04-10 07:33] LABS: Alanine Aminotransferase 34 Units/L (7-52); Albumin 3.5 g/dL (3.5-5.7); Albumin/Globulin Ratio 1.2 (1.1-2.2); Alkaline Phosphatase 135 Units/L (34-104); Aspartate Amino Transferase 23 Units/L (13-39); BUN/Creatinine Ratio 20 (6-26); Bilirubin,Total 0.9 mg/dL (0.3-1.0); Blood Urea Nitrogen 15 mg/dL (8-23); Calcium 9.6 mg/dL (8.6-10.3); Carbon Dioxide 32 mEq/L (23-29); Chloride 102 mEq/L (98-107); Glucose 117 mg/dL (70-105); Osmolality,Calculated 288 (280-300); Potassium 3.7 mEq/L (3.5-5.1); Sodium 138 mEq/L (136-145); Total Protein 6.5 g/dL (6.4-8.9); eGFR For African Americans > 60 (> 60); eGFR For Non-African Americans > 60 (> 60)
[2019-04-10] MEDS: amLODIPine 5 MG TABLET PO SCH (07:49)
[2019-04-10] MEDS: Furosemide 40 MG TABLET PO SCH (07:49)
[2019-04-10] MEDS: Cholecalciferol (D-3) 1,000 UNIT (25MCG) TABLET PO SCH (07:49)
[2019-04-10] MEDS: Metoprolol 100 MG TABLET PO SCH (07:49)
[2019-04-10 11:35] VITALS: BP 98/53
[2019-04-10] MEDS ORDERED: FLU Vac QV 19-20 (6Month+)/PF 0.5 ML SYRINGE IM ONE (12:29)
== END 2019-04-10 13:30 | disposition home or self-care (01) | DRG 558 ==
LOC: EMEROOARM 17:14 → 3NENU 17:14 → SUATTDRO 20:23 → 3NENU 20:57
PROVIDERS: ADMIT Family Medicine; ATTEND Internal Medicine

== ENCOUNTER 2020-11-04 13:20 | Inpatient (IN) ==
[2020-11-04 14:21] LABS: Basophils # 0.1 K/mcL (0.0-0.2); Basophils % 0.5 %; Eosinophils % 0.3 %; Hematocrit 46.7 % (35.3-44.9); Hemoglobin 14.5 g/dL (11.5-15.4); Immature Granulocytes % 0.4 % (0-4); Lymphocytes # 2.2 K/mcL (0.6-4.6); Lymphocytes % 17.7 %; Mean Corpuscular Hemoglobin 32.7 pg (28.0-33.3); Mean Corpuscular Volume 105.2 fL (83.0-100.0); Monocytes # 0.9 K/mcL (0.0-1.3); Monocytes % 7.7 %; Neutrophils # 8.9 K/mcL (1.6-8.9); Platelet Count 263 K/mcL (140-400); Red Blood Count 4.44 M/mcL (3.82-4.97); Red Cell Distribution Width 12.3 % (11.5-14.5); Segmented Neutrophils % 73.4 %; White Blood Count 12.1 K/mcL (4.3-11.1)
[2020-11-04 14:35] LABS: Amorphous Sediment,Urine Few per hpf (None-Few); Bacteria,Urine Few per hpf (None-Few); Bilirubin,Urine Negative (Negative); Blood,Urine Negative (Negative); Clarity,Urine Turbid (Clear); Color,Urine Yellow (Yellow); Glucose,Urine (UA) Normal (Normal); Hyaline Casts,Urine Moderate per lpf (None Seen); Ketones,Urine Negative (Negative); Leukocyte Esterase,Urine Small (Negative); Mucus,Urine Few per lpf (None-Few); Nitrite,Urine Negative (Negative); PH,Urine 7.5 pH Units (5.0-8.0); Protein,Urine 30 mg/dL (Neg-Trace); RBC,Urine 0-3 per hpf (0-3); Specific Gravity,Urine 1.019 (1.010-1.025); Squamous Epithelial Cell,Urine Few per hpf (None-Few); Urobilinogen,Urine Normal (Normal); WBC,Urine 15-30 per hpf (0-3)
[2020-11-04 14:43] LABS: BUN/Creatinine Ratio 14 (6-26); Blood Urea Nitrogen 16 mg/dL (8-23); Calcium 9.9 mg/dL (8.6-10.3); Carbon Dioxide 18 mEq/L (23-29); Chloride 107 mEq/L (98-107); Glucose 118 mg/dL (70-105); Osmolality,Calculated 282 (280-300); Potassium 4.6 mEq/L (3.5-5.1); Sodium 135 mEq/L (136-145); Troponin I < 0.03 ng/mL (< 0.04); eGFR For African Americans 57 (> 60); eGFR For Non-African Americans 47 (> 60)
[2020-11-04] MEDS ORDERED: Isovue-370 500 ML BOTTLE IVP ONE (14:57)
[2020-11-04 15:04] LABS: INR 2.9; Prothrombin Time 32.7 Seconds (9.4-12.1)
[2020-11-04] MEDS ORDERED: Ondansetron 4 MG/2 ML VIAL IVP PRN (17:45)
[2020-11-04] MEDS ORDERED: Acetaminophen 325 MG TABLET PO PRN ×2 (17:45→18:01)
[2020-11-04] MEDS ORDERED: Naloxone 0.4 MG/ML INJ IVP PRN (17:45)
[2020-11-04] MEDS ORDERED: *HR* HYDROcodone/Acet 5/325 mg TABLET PO PRN ×2 (17:45→18:01)
[2020-11-04] MEDS ORDERED: cefTRIAXone 1,000 MG in 0.9 % Sodium Chloride Mini Bag 100 ML IVPB ONE (17:54)
[2020-11-04] MEDS ORDERED: Dextrose Gel 15 GM/37.5 ML TUBE PO PRN ×2 (18:25)
[2020-11-04] MEDS ORDERED: *HR* Dextrose 50 % in Water (Vial) 50 ML VIAL IVP PRN (18:25)
[2020-11-04] MEDS ORDERED: D5% in Water 1,000 ML IVC PRN (18:25)
[2020-11-04] MEDS: Dexamethasone Sodium Phos/PF 10 MG/ML VIAL IVP SCH ×2 (18:36→23:17)
[2020-11-04] MEDS: Ampicillin 2 GM in 0.9 % Sodium Chloride Mini Bag 100 ML IVPB SCH ×2 (18:36→23:17)
[2020-11-04] MEDS ORDERED: Vancomycin 1,250 MG/262.5 ML IV.SOLN IVPB SCH (19:00)
[2020-11-04] MEDS: cefTRIAXone 2,000 MG in 0.9 % Sodium Chloride Mini Bag 100 ML IVPB SCH (19:10)
[2020-11-05] MEDS: Dexamethasone Sodium Phos/PF 10 MG/ML VIAL IVP SCH ×2 (05:20→12:41)
[2020-11-05] MEDS: Ampicillin 2 GM in 0.9 % Sodium Chloride Mini Bag 100 ML IVPB SCH ×2 (05:20→12:41)
[2020-11-05 05:22] LABS: Hematocrit 44.2 % (35.3-44.9); Hemoglobin 14.1 g/dL (11.5-15.4); Immature Granulocytes % 0.6 % (0-4); Lymphocytes # 1.1 K/mcL (0.6-4.6); Mean Corpuscular HGB Conc 31.9 g/dL (31.6-35.5); Mean Corpuscular Hemoglobin 32.6 pg (28.0-33.3); Mean Corpuscular Volume 102.1 fL (83.0-100.0); Mean Platelet Volume 10.4 fL (9.4-12.4); Monocytes # 0.1 K/mcL (0.0-1.3); Neutrophils # 5.5 K/mcL (1.6-8.9); Platelet Count 297 K/mcL (140-400); Red Blood Count 4.33 M/mcL (3.82-4.97); Segmented Neutrophils % 82.4 %; White Blood Count 6.7 K/mcL (4.3-11.1)
[2020-11-05 05:28] LABS: INR 2.6
[2020-11-05 05:39] LABS: Calcium 10.2 mg/dL (8.6-10.3); Magnesium 2.3 mg/dL (1.6-2.6); Phosphorous 2.9 mg/dL (2.7-4.5); Potassium 4.3 mEq/L (3.5-5.1)
[2020-11-05 05:46] LABS: Estimated Average Glucose 134 mg/dl; Hemoglobin A1C 6.3 %
[2020-11-05] MEDS: cefTRIAXone 2,000 MG in 0.9 % Sodium Chloride Mini Bag 100 ML IVPB SCH ×2 (05:52→17:01)
[2020-11-05] MEDS: Insulin LISPRO 300 UNITS/3 ML VIAL SUBQ SCH ×2 (12:41→17:01)
[2020-11-05] MEDS: amLODIPine 5 MG TABLET PO SCH (17:02)
[2020-11-05] MEDS: Cyanocobalamin (B-12) 1,000 MCG TABLET PO SCH (17:02)
[2020-11-05] MEDS ORDERED: Warfarin perPT PO PRN (18:00)
[2020-11-05] MEDS ORDERED: *HR* Warfarin 5 MG TABLET PO ONE (18:00)
[2020-11-05] MEDS: Metoprolol 100 MG TABLET PO SCH (20:10)
[2020-11-06 02:33] LABS: Basophils % 0.1 %; Hematocrit 40.5 % (35.3-44.9); Hemoglobin 13.2 g/dL (11.5-15.4); Lymphocytes # 1.1 K/mcL (0.6-4.6); Mean Corpuscular HGB Conc 32.6 g/dL (31.6-35.5); Mean Corpuscular Hemoglobin 33.2 pg (28.0-33.3); Mean Corpuscular Volume 101.8 fL (83.0-100.0); Mean Platelet Volume 10.5 fL (9.4-12.4); Monocytes % 5.3 %; Neutrophils # 15.9 K/mcL (1.6-8.9); Platelet Count 311 K/mcL (140-400); Red Blood Count 3.98 M/mcL (3.82-4.97); Red Cell Distribution Width 12.1 % (11.5-14.5); Segmented Neutrophils % 87.6 %
[2020-11-06 02:38] LABS: INR 2.2; Prothrombin Time 24.5 Seconds (9.4-12.1)
[2020-11-06 02:40] LABS: White Blood Count 18.2 K/mcL (4.3-11.1)
[2020-11-06 02:51] LABS: Calcium 9.9 mg/dL (8.6-10.3); Potassium 4.1 mEq/L (3.5-5.1)
[2020-11-06] MEDS: cefTRIAXone 2,000 MG in 0.9 % Sodium Chloride Mini Bag 100 ML IVPB SCH (04:46)
[2020-11-06] MEDS: Levothyroxine 25 MCG TABLET PO SCH (04:47)
[2020-11-06] MEDS: Insulin LISPRO 300 UNITS/3 ML VIAL SUBQ SCH ×3 (07:51→16:44)
[2020-11-06] MEDS: amLODIPine 5 MG TABLET PO SCH (08:17)
[2020-11-06] MEDS: Metoprolol 100 MG TABLET PO SCH ×2 (08:17→20:27)
[2020-11-06] MEDS: Multivit/Ca/Min/Fe/FA 1 TAB TABLET PO SCH (08:17)
[2020-11-06] MEDS: Cyanocobalamin (B-12) 1,000 MCG TABLET PO SCH (08:18)
[2020-11-06] MEDS ORDERED: Cyanocobalamin (B-12) 1,000 MCG/ML VIAL SQ ONE (08:36)
[2020-11-06] MEDS: Sodium Bicarbonate 75 MEQ in 0.45 % Sodium Chloride 1,000 ML IVC SCH (10:02)
[2020-11-06] MEDS ORDERED: *HR* Warfarin 5 MG TABLET PO ONE (18:00)
[2020-11-06] MEDS ORDERED: *HR* Warfarin 7.5 MG TABLET PO ONE (18:00)
[2020-11-07] MEDS: Sodium Bicarbonate 75 MEQ in 0.45 % Sodium Chloride 1,000 ML IVC SCH (00:40)
[2020-11-07] MEDS: Levothyroxine 25 MCG TABLET PO SCH (05:27)
[2020-11-07 05:36] LABS: Basophils % 0.2 %; Eosinophils % 0.1 %; Hematocrit 39.3 % (35.3-44.9); Hemoglobin 12.8 g/dL (11.5-15.4); Immature Granulocytes % 0.9 % (0-4); Lymphocytes # 2.2 K/mcL (0.6-4.6); Lymphocytes % 17.2 %; Mean Corpuscular HGB Conc 32.6 g/dL (31.6-35.5); Mean Corpuscular Volume 101.3 fL (83.0-100.0); Mean Platelet Volume 10.3 fL (9.4-12.4); Monocytes % 8.1 %; Neutrophils # 9.4 K/mcL (1.6-8.9); Platelet Count 293 K/mcL (140-400); Red Blood Count 3.88 M/mcL (3.82-4.97); Red Cell Distribution Width 12.4 % (11.5-14.5); Segmented Neutrophils % 73.5 %; White Blood Count 12.7 K/mcL (4.3-11.1)
[2020-11-07 05:43] LABS: Prothrombin Time 23.1 Seconds (9.4-12.1)
[2020-11-07 05:53] LABS: Magnesium 2.1 mg/dL (1.6-2.6); Phosphorous 2.7 mg/dL (2.7-4.5); Potassium 3.6 mEq/L (3.5-5.1)
[2020-11-07] MEDS: Insulin LISPRO 300 UNITS/3 ML VIAL SUBQ SCH ×3 (07:28→17:16)
[2020-11-07] MEDS: Multivit/Ca/Min/Fe/FA 1 TAB TABLET PO SCH (07:48)
[2020-11-07] MEDS: Cyanocobalamin (B-12) 1,000 MCG TABLET PO SCH (07:49)
[2020-11-07] MEDS: Metoprolol 100 MG TABLET PO SCH ×2 (07:49→21:04)
[2020-11-07] MEDS: amLODIPine 5 MG TABLET PO SCH (07:49)
[2020-11-07] MEDS ORDERED: QUEtiapine Fumarate 25 MG TABLET PO PRN (09:41)
[2020-11-07] MEDS ORDERED: *HR* Warfarin 7.5 MG TABLET PO ONE (18:00)
[2020-11-08] MEDS: Levothyroxine 25 MCG TABLET PO SCH (05:43)
[2020-11-08 06:32] LABS: BUN/Creatinine Ratio 26 (6-26); Blood Urea Nitrogen 27 mg/dL (8-23); Calcium 9.2 mg/dL (8.6-10.3); Carbon Dioxide 24 mEq/L (23-29); Chloride 111 mEq/L (98-107); Glucose 135 mg/dL (70-105); Osmolality,Calculated 299 (280-300); Potassium 3.7 mEq/L (3.5-5.1); Sodium 141 mEq/L (136-145); eGFR For African Americans > 60 (> 60); eGFR For Non-African Americans 51 (> 60)
[2020-11-08 06:46] LABS: Basophils % 0.4 %; Eosinophils # 0.1 K/mcL (0.0-0.6); Eosinophils % 0.9 %; Hematocrit 40.6 % (35.3-44.9); Immature Granulocytes % 0.5 % (0-4); Lymphocytes # 2.4 K/mcL (0.6-4.6); Mean Corpuscular Hemoglobin 33.4 pg (28.0-33.3); Mean Corpuscular Volume 104.4 fL (83.0-100.0); Mean Platelet Volume 10.5 fL (9.4-12.4); Monocytes # 0.9 K/mcL (0.0-1.3); Monocytes % 8.1 %; Neutrophils # 7.8 K/mcL (1.6-8.9); Platelet Count 293 K/mcL (140-400); Red Blood Count 3.89 M/mcL (3.82-4.97); Red Cell Distribution Width 12.7 % (11.5-14.5); Segmented Neutrophils % 69.1 %; White Blood Count 11.3 K/mcL (4.3-11.1)
[2020-11-08 06:57] LABS: INR 1.8
[2020-11-08] MEDS: Insulin LISPRO 300 UNITS/3 ML VIAL SUBQ SCH ×3 (06:59→16:59)
[2020-11-08] MEDS: Cyanocobalamin (B-12) 1,000 MCG TABLET PO SCH (08:02)
[2020-11-08] MEDS: Metoprolol 100 MG TABLET PO SCH (08:02)
[2020-11-08] MEDS: Multivit/Ca/Min/Fe/FA 1 TAB TABLET PO SCH (08:02)
[2020-11-08] MEDS: amLODIPine 5 MG TABLET PO SCH (08:02)
[2020-11-08 14:25] VITALS: BP 137/80
[2020-11-08] MEDS ORDERED: *HR* Warfarin 7.5 MG TABLET PO ONE (18:00)
== END 2020-11-08 18:03 | disposition home health service (06) | DRG 689 ==
LOC: EMEROOARM 13:20 → 3BNU 13:20 → SUATTDRO 17:42 → 3BNU 18:19
PROVIDERS: ADMIT Internal Medicine; ATTEND Internal Medicine